=== PATIENT | female | born 1940 | race Caucasian/White ===

== ENCOUNTER 2017-01-14 14:46 | Inpatient (IN) | payer MEDICARE ==
[2017-01-14 15:58] LABS: Hematocrit 41 % (35-47); Hemoglobin 13.6 g/dl (12.0-16.0); Mean Corpuscular HGB Conc 33 g/dl (31-36); Mean Corpuscular Hemoglobin 34 pg (27-31); Mean Corpuscular Volume 102 fL (80-97); Mean Platelet Volume 9 um3 (7.4-10.4); Red Cell Distribution Width 14 % (10.5-15); White Blood Count 24.1 10^3/ul (3.5-10.8)
[2017-01-14 16:00] LABS: Add Diff/Slide Review? Manual Diff Added; Comments Flag Yes
--- NOTE | 2017-01-14 16:00 | RAD ---
INDICATION: Fever. COMPARISON: Comparison is made with a prior chest x-ray study from January 08, 2012. TECHNIQUE: Dual-energy PA and lateral views of the chest were obtained. FINDINGS: The heart is within normal limits in size. Mediastinal and hilar contours appear within normal limits. The lungs are hyperinflated. There are patchy bilateral upper lobe infiltrates which are new from the prior study. No pleural effusion is seen. IMPRESSION: 1. BILATERAL UPPER LOBE INFILTRATES RECOMMEND FOLLOW-UP CHEST X-RAYS TO RESOLUTION. 2. COPD.
[2017-01-14 16:12] LABS: Albumin 3.5 g/dL (3.2-5.2); BUN/Creatinine Ratio 21.5 (8-20); EGFR African American 113.7 (>60); EGFR Non-African American 88.4 (>60); Potassium 3.4 mmol/L (3.5-5.0); Total Protein 6.5 g/dL (6.4-8.9)
[2017-01-14 16:14] LABS: Troponin I 0.03 ng/mL (<0.04)
[2017-01-14 16:45] LABS: Immature Granulocytes 4 % (0-9); Neutrophil % 85 % (38-83)
[2017-01-14 16:46] LABS: Macrocytosis 2+
[2017-01-14 16:47] LABS: Add Path Review? YES
[2017-01-14] MEDS ORDERED: Cefepime(*) 2 GM in NS 0.9% 50 ML* 50 ML IVPB ONE (17:35)
[2017-01-14] MEDS ORDERED: NS 0.9% 1000 ML* 1,000 ML IV ONE (17:47)
--- NOTE | 2017-01-14 18:20 | ADMNOTE ---
Subjective Date of Service: 01/14/17 Interval History: ADMISSION HISTORY AND PHYSICAL EXAM: Allergies Allergy/AdvReac Type Severity Reaction Status Date / Time Azithromycin [From Zithromax] Allergy Unknown Verified 01/14/17 15:12 Reaction Details Ciprofloxacin [From Cipro] Allergy Difficulty Verified 01/14/17 15:12 Breathing Clindamycin Allergy Unknown Verified 01/14/17 15:12 Reaction Details Codeine Allergy Altered Verified 01/14/17 15:12 Mental Status Levofloxacin [From Levaquin] Allergy Swelling Verified 01/14/17 15:12 Of Face,Lips,& Throat Metoclopramide [From Reglan] Allergy THRASHING Verified 01/14/17 15:04 AROUND/BEATING ON LEGS Nitrofurantoin Allergy Hives Verified 01/14/17 15:04 [From Macrobid] Penicillins Allergy Hives Verified 01/14/17 15:04 Sulfamethoxazole Allergy DIZZINESS/UNSTEADY Verified 01/14/17 15:04 w/Trimethoprim & RASH [From Bactrim] Tetracycline Allergy YEAST Verified 01/14/17 15:04 INFECTION Home Medications Medication Instructions Recorded Confirmed Type Aspirin 81 mg PO DAILY 03/21/14 03/24/14 History Clopidogrel Bisulfate [Plavix] 75 mg PO DAILY 03/21/14 03/24/14 History Cyanocobalamin [Vitamin B12] 1,000 mcg PO DAILY 03/21/14 03/24/14 History Famotidine 20 mg PO BID 03/21/14 03/24/14 History Gabapentin 300 mg PO DAILY 03/21/14 03/24/14 History Ibandronate TAB(NF) [Boniva(NF)] 1 tab PO SEE INSTRUCTIONS 03/21/14 03/24/14 History Metoprolol Tartrate 12.5 mg PO BID 03/21/14 03/24/14 History Nitroglycerin [Nitrostat] 0.4 mg SL SEE INSTRUCTIONS 03/21/14 03/24/14 History Potassium Chloride 7.5 ml PO DAILY 03/21/14 03/24/14 History Simvastatin 20 mg PO DAILY 03/21/14 03/24/14 History HPI: The patient has been treated by her dentist for an abcessed tooth. She took Cipro, then Levaquin. Both caused sx's including face turning red, tongue feeling swollen. Yesterday the dentist pulled the tooth. After that she had a fever, both yesterday and this AM, up to 103. No pain. No cough, SOB. Family History: Findings - Mother of cancer ? type. Father of [place]. Social History: Findings - Lives alone. Current smoker. 2 glasses alcohol daily. Son Jefferson is her SDM. No other children. Past Medical History: Findings - Cholycystectomy many yrs ago. [place] with 2 cardiac stents 2011. R lumpectomy and RT for breast ca 2006. Review of Systems - Review of Systems Constitutional Symptoms: Negative: Weight Gain, Weight Loss, Weakness, Fatigue, Fever, Night Sweats, Unexplained Falls, Other Dermatology: Positive: Normal HEENT: Positive: Normal Eyes: Positive: Normal Thyroid: Positive: Normal Pulmonary: Positive: COPD Cardiology: Positive: Normal Gastroenterology: Positive: Anorexia Musculoskeletal: Negative: Joint Pain, Joint Stiffness, Arthritis, Osteoporosis, Low Back Pain , Sciatica, Joint Deformities, Kyphoscoliosis, Other Endocrinology: Positive: Normal Hematologic/Lymphatic: Negative: Anemia, Easy Brusing, Hx Leukemia, Hx Lymphoma, Use of Anticoagulant, Use of Antiplatelet Drugs, Other Neurology: Positive: Normal Allergic/Immunologic: Negative: Hx Anaphylaxis, Hx Angioedema, Hx Environmental, Hx Seasonal, Athsma, Hx HIV, Immunocompromise, Swollen Glands LymphNodes, Other Objective Active Medications: Aspirin (Aspirin Low Dose Tab*) 81 mg PO DAILY STEPHANIE Clopidogrel Bisulfate (Plavix Tab*) 75 mg PO DAILY [facility] Enoxaparin Sodium (Lovenox(*)) 40 mg SUBCUT Q24H STEPHANIE Famotidine (Pepcid Tab*) 20 mg PO BID STEPHANIE Gabapentin (Neurontin Cap(*)) 300 mg PO DAILY [facility] Cefuroxime Sodium 750 mg/ (Sodium Chloride) 50 mls @ 100 mls/hr IVPB Q8H STEPHANIE Potassium Chloride/Sodium Chloride (Ns 0.9% W/ 20 Meq Kcl 1000 Ml*) 1,000 mls @ 125 mls/hr IV PER RATE [facility] Metoprolol Tartrate (Lopressor Tab*) 12.5 mg PO BID STEPHANIE Nitroglycerin (Nitroglycerin Tab 0.4 Mg*) 0.4 mg SL SEE INSTRUCTIONS STEPHANIE Simvastatin (Zocor(Nf)) 20 mg PO DAILY [facility] Oxygen Devices in Use Now: None Appearance: Alert, partly up on ED stretcher. In good spirits. Looks comfortable. Eyes: No Scleral Icterus Ears/Nose/Mouth/Throat: Clear Oropharnyx, Mucous Membranes Moist, - - R lower tooth missing. No tenderness or swelling. Neck: NL Appearance and Movements; NL JVP, No Thyroid Enlargement, Masses Respiratory: Symmetrical Chest Expansion and Respiratory Effort, Clear to Auscultation, Clear to Percussion Cardiovascular: NL Sounds; No Murmurs; No JVD, RRR, No Edema, - Extremities: No Edema, No Clubbing, Cyanosis, - Skin: No Rash or Ulcers, No Nodules or Sclerosis Neurological: Alert and Oriented x 3, NL Sensation Result Diagrams: 01/14/17 15:49 01/14/17 15:49 Assess/Plan/Problems-Billing Assessment: - Patient Problems (1) Sepsis Current Visit: Yes Status: Acute Comment: Source could be dental or pulmonary. Blood C&S sent. Start IV cefuroxime, IV fluids. Repeat CBC 01/15. (2) Tobacco abuse Current Visit: Yes Status: Acute Code(s): Z72.0 - TOBACCO USE SNOMED Code( s): 158413948 Comment: Pt advised to quit smoking and avoid second hand smoke.
[2017-01-14 18:35] LABS: Urine Bacteria Absent (Absent); Urine Bilirubin Negative (Negative); Urine Glucose Negative (Negative); Urine Nitrite Negative (Negative)
[2017-01-14] MEDS ORDERED: Nitroglycerin TAB 0.4 MG* 0.4 MG TAB SL SCH (19:00)
[2017-01-14] MEDS ORDERED: Nitroglycerin TAB 0.4 MG* 0.4 MG TAB SL PRN (19:14)
[2017-01-14] MEDS: ceFUROXime IV(*) 750 MG in NS 0.9% 50 ML* 50 ML IVPB SCH (20:30)
[2017-01-14] MEDS: NS 0.9% w/ 20 Meq KCL 1000 ML* 1,000 ML IV SCH (20:30)
[2017-01-14] MEDS: Metoprolol Tartrate TAB* 25 MG PO SCH (20:58)
[2017-01-14] MEDS: Famotidine TAB* 20 MG PO SCH (20:58)
[2017-01-14] MEDS: Enoxaparin(*) 40 MG/0.4 ML SYR SUBCUT SCH (20:58)
[2017-01-14] MEDS ORDERED: Docusate CAP* 100 MG PO PRN (23:02)
[2017-01-14] MEDS ORDERED: Nicotine Inhaler* 10 MG AMP INH PRN (23:02)
[2017-01-15] MEDS: ceFUROXime IV(*) 750 MG in NS 0.9% 50 ML* 50 ML IVPB SCH (03:16)
[2017-01-15 04:52] LABS: Hematocrit 37 % (35-47); Hemoglobin 12.4 g/dl (12.0-16.0); Mean Corpuscular HGB Conc 33 g/dl (31-36); Mean Corpuscular Hemoglobin 34 pg (27-31); Mean Corpuscular Volume 103 fL (80-97); Mean Platelet Volume 9 um3 (7.4-10.4); Red Blood Count 3.63 10^6/ul (4.0-5.4); Red Cell Distribution Width 14 % (10.5-15); White Blood Count 20.5 10^3/ul (3.5-10.8)
[2017-01-15 05:00] LABS: Add Diff/Slide Review? Slide Review Added; Comments Flag Yes
[2017-01-15 05:04] LABS: BUN/Creatinine Ratio 24.1 (8-20); Calcium 7.9 mg/dL (8.6-10.3); EGFR African American 140.8 (>60); EGFR Non-African American 109.5 (>60); Potassium 3.6 mmol/L (3.5-5.0)
[2017-01-15] MEDS: NS 0.9% w/ 20 Meq KCL 1000 ML* 1,000 ML IV SCH ×3 (05:13→23:05)
[2017-01-15] MEDS: Aspirin Low Dose CHEW TAB* 81 MG PO SCH (08:58)
[2017-01-15] MEDS: Famotidine TAB* 20 MG PO SCH ×2 (08:58→20:18)
[2017-01-15] MEDS: Metoprolol Tartrate TAB* 25 MG PO SCH ×2 (08:58→20:18)
[2017-01-15] MEDS: Atorvastatin* 10 MG TAB PO SCH (08:58)
[2017-01-15] MEDS: Gabapentin CAP(*) 300 MG PO SCH (08:59)
[2017-01-15] MEDS: Clopidogrel TAB* 75 MG PO SCH (08:59)
[2017-01-15] MEDS ORDERED: Albuterol/Ipratropium NEB.SOL* Albuterol 2.5 MG/Ipratropium 0.5 MG 3 ML INH PRN (09:13)
[2017-01-15] MEDS ORDERED: Nicotine Inhaler* 10 MG AMP INH PRN (09:50)
--- NOTE | 2017-01-15 10:00 | PN ---
Subjective Date of Service: 01/15/17 Interval History: C/O fatigue. She had her usual AM wheezing today and it has resolved. Her face became very red and burning toward the end of the cefuroxime infusion. Family History: Findings - Mother of cancer ? type. Father of [place]. Social History: Findings - Lives alone. Current smoker. 2 glasses alcohol daily. Son Jefferson is her SDM. No other children. Past Medical History: Findings - Cholycystectomy many yrs ago. [place] with 2 cardiac stents 2011. R lumpectomy and RT for breast ca 2006. Objective Active Medications: Albuterol/Ipratropium (Duoneb (Albuterol 2.5 Mg/Ipratropium 0.5 Mg)) 1 neb INH Q2H PRN PRN Reason: SOB/WHEEZING Aspirin (Aspirin Low Dose Tab*) 81 mg PO DAILY [facility] Last Admin: 01/15/17 08:58 Dose: 81 mg Atorvastatin Calcium (Lipitor*) 10 mg PO DAILY [facility] Last Admin: 01/15/17 08:58 Dose: 10 mg Clopidogrel Bisulfate (Plavix Tab*) 75 mg PO DAILY [facility] Last Admin: 01/15/17 08:59 Dose: 75 mg Docusate Sodium (Colace Cap*) 100 mg PO BID PRN PRN Reason: CONSTIPATION Last Admin: 01/15/17 00:04 Dose: 100 mg Enoxaparin Sodium (Lovenox(*)) 40 mg SUBCUT Q24H [facility] Last Admin: 01/14/17 20:58 Dose: 40 mg Famotidine (Pepcid Tab*) 20 mg PO BID [facility] Last Admin: 01/15/17 08:58 Dose: 20 mg Gabapentin (Neurontin Cap(*)) 300 mg PO DAILY [facility] Last Admin: 01/15/17 08:59 Dose: 300 mg Potassium Chloride/Sodium Chloride (Ns 0.9% W/ 20 Meq Kcl 1000 Ml*) 1,000 mls @ 125 mls/hr IV PER RATE [facility] Last Admin: 01/15/17 05:13 Dose: 125 mls/hr Metoprolol Tartrate (Lopressor Tab*) 12.5 mg PO BID [facility] Last Admin: 01/15/17 08:58 Dose: 12.5 mg Nicotine (Nicotine Inhaler*) 10 mg INH Q2H PRN PRN Reason: CRAVING Nicotine (Nicotine Inhaler*) 10 mg INH Q2H PRN PRN Reason: CRAVING Nitroglycerin (Nitroglycerin Tab 0.4 Mg*) 0.4 mg SL Q5M PRN PRN Reason: ANGINA Vital Signs 01/14/17 01/14/17 01/14/17 18:02 18:26 20:00 Temperature 100.2 F 98.6 F Pulse Rate 110 104 Respiratory 16 20 16 Rate Blood Pressure 129/73 129/75 (mmHg) O2 Sat by Pulse 92 91 91 Oximetry 01/14/17 01/15/17 01/15/17 23:51 01:36 04:11 Temperature 100.0 F 100.6 F 98.8 F Pulse Rate 87 92 Respiratory 16 16 Rate Blood Pressure 104/65 120/64 (mmHg) O2 Sat by Pulse 91 90 Oximetry 01/15/17 01/15/17 01/15/17 07:59 08:00 08:59 Temperature 99.7 F Pulse Rate 89 Respiratory 16 18 18 Rate Blood Pressure 128/68 (mmHg) O2 Sat by Pulse 91 91 Oximetry Oxygen Devices in Use Now: None Appearance: Alert, partly up in bed. In good spirits. Looks comfortable. Eyes: No Scleral Icterus Neck: NL Appearance and Movements; NL JVP, No Thyroid Enlargement, Masses Respiratory: Symmetrical Chest Expansion and Respiratory Effort, Clear to Percussion, - - Delayed expiratory phase Cardiovascular: NL Sounds; No Murmurs; No JVD, RRR, No Edema, - Extremities: No Edema, No Clubbing, Cyanosis, - Skin: No Nodules or Sclerosis, - - marked facial flushing, mainly butterfly distribution, warm. Neurological: Alert and Oriented x 3, NL Sensation Result Diagrams: 01/15/17 04:34 01/15/17 04:34 Assess/Plan/Problems-Billing Assessment: - Patient Problems (1) Sepsis Current Visit: Yes Status: Acute Comment: Source could be dental or pulmonary. Blood C&S sent. Clinically doing well. I gave patient the choice of using a cephalosporin or no antibiotic and she chose no antibiotic. (2) Tobacco abuse Current Visit: Yes Status: Acute Code(s): Z72.0 - TOBACCO USE SNOMED Code( s): 992400384 Comment: Pt advised to quit smoking and avoid second hand smoke. Patient requested nicotine inhaler and I ordered it. (3) COPD (chronic obstructive pulmonary disease) Current Visit: Yes Status: Acute Code(s): J44.9 - CHRONIC OBSTRUCTIVE PULMONARY DISEASE, UNSPECIFIED SNOMED Code(s): 41011887 Comment: Pt has never used a bronchodilator at home although she recently filled an rx for one. Giancarlo ordered PRN.
--- NOTE | 2017-01-15 14:32 | ED ---
Breanna Rasmussen SooYoung, scribed for Perry rCuz MD on 01/14/17 at 1534 . HPI Febrile Illness - HPI Summary HPI Summary: A 76 y/o F presents to ED with c/o fever, maxT of 103 F, onset yesterday evening , since resolved. Denies cough, dysuria, hematuria, frequency, CP, v/d. She says she has SOB as baseline. She received a PNA shot four days ago. Pt notes that she had an abscessed tooth that was removed, she was placed on ABX and had some allergic reactions (dyspnea, erythema to the face, swollen tongue, leg pain ). - History of Current Complaint Chief Complaint: EDFever Time Seen by Provider: 01/14/17 15:14 Hx Obtained From: Patient Onset/Duration: Started Days Ago - yesterday night, Resolved Timing: Constant Initial Severity: Moderate Current Severity: None Pain Intensity: 0 Pain Scale Used: 0-10 Numeric - Allergy/Home Medications Allergies/Adverse Reactions: Allergies Allergy/AdvReac Type Severity Reaction Status Date / Time Azithromycin [From Zithromax] Allergy Unknown Verified 01/14/17 15:12 Reaction Details Ciprofloxacin [From Cipro] Allergy Difficulty Verified 01/14/17 15:12 Breathing Clindamycin Allergy Unknown Verified 01/14/17 15:12 Reaction Details Codeine Allergy Altered Verified 01/14/17 15:12 Mental Status Levofloxacin [From Levaquin] Allergy Swelling Verified 01/14/17 15:12 Of Face,Lips,& Throat Metoclopramide [From Reglan] Allergy THRASHING Verified 01/14/17 15:04 AROUND/BEATING ON LEGS Nitrofurantoin Allergy Hives Verified 01/14/17 15:04 [From Macrobid] Penicillins Allergy Hives Verified 01/14/17 15:04 Sulfamethoxazole Allergy DIZZINESS/UNSTEADY Verified 01/14/17 15:04 w/Trimethoprim & RASH [From Bactrim] Tetracycline Allergy YEAST Verified 01/14/17 15:04 INFECTION PMH/Surg Hx/FS Hx/Imm Hx Previously Healthy: No Endocrine/Hematology History: Denies: Hx Diabetes Cardiovascular History: Reports: Hx Angina - PAST, Hx Coronary Artery Disease - 2 STENT, Hx Hypercholesterolemia, Hx Hypertension Denies: Hx Myocardial Infarction - "WAS TOLD SHE HAD AN EVENT, Hx Pacemaker/ ICD Respiratory History: Reports: Hx Chronic Obstructive Pulmonary Disease (COPD) - MILD History: Denies: Hx Renal Disease Musculoskeletal History: Reports: Hx Osteoporosis Denies: Hx Rheumatoid Arthritis Sensory History: Denies: Hx Hearing Aid Psychiatric History: Denies: Hx Panic Disorder - Cancer History Cancer Type, Location and Year: BREAST Hx Chemotherapy: No Hx Radiation Therapy: Yes - BREAST - Surgical History Surgery Procedure, Year, and Place: GALLBLADDER. Rt LUMPECTOMY - BREAST CANCER - 2006. CARDAIC STENTING - 2011- PROMUS ELEMENT Xs 2 - CONDITIONAL 5 UP TO 3T- ( PROCEDURE DONE [place] [facility] [place] Infectious Disease History: No Infectious Disease History: Denies: Traveled Outside the [place] in Last 30 Days - Family History Known Family History: Positive: Cardiac Disease - CAD, Other - breast CA - Social History Occupation: Employed Full-time Lives: Alone Alcohol Use: Daily Alcohol Amount: 1-2 DAILY Hx Substance Use: No Substance Use Type: Reports: None Hx Tobacco Use: Yes Smoking Status (MU): Light Every Day Tobacco Smoker Type: Cigarettes Amount Used/How Often: 7-10 DAILY Length of Time of Smoking/Using Tobacco: SINCE 1954 Have You Smoked in the Last Year: Yes Review of Systems Positive: Fever. Negative: Chills Negative: Erythema Negative: Sore Throat Negative: Chest Pain Negative: Shortness Of Breath, Cough Negative: Abdominal Pain, Vomiting, Nausea Negative: dysuria, hematuria Negative: Myalgia, Edema Negative: Rash Neurological: Other - neg: dizziness All Other Systems Reviewed And Are Negative: Yes Physical Exam - Summary Physical Exam Summary: Constitutional: Well-developed, Well-nourished, Alert. (-) Distressed Skin: Warm, Dry HENT: Normocephalic; Atraumatic Eyes: Conjunctiva normal Neck: Musculoskeletal ROM normal neck. (-) JVD, (-) Stridor, (-) Tracheal deviation Cardio: Rhythm regular, rate normal, Heart sounds normal; Intact distal pulses; The pedal pulses are 2+ and symmetric. Radial pulses are 2+ and symmetric. (-) Murmur Pulmonary/Chest wall: Effort normal. POS BIBASILAR RHONCHI Abd: Soft, (-) Tenderness, (-) Distension, (-) Guarding, (-) Rebound Musculoskeletal: (-) Edema Lymph: (-) Cervical adenopathy Neuro: Alert, Oriented x3 Psych: Mood and affect Normal Triage Information Reviewed: Yes Vital Signs On Initial Exam: Initial Vitals Temp Pulse Resp BP Pulse Ox 98.8 F 121 18 129/76 93 01/14/17 14:49 01/14/17 14:49 01/14/17 14:49 01/14/17 14:49 01/14/17 14:49 Vital Signs Reviewed: Yes Diagnostics - Vital Signs Vital Signs Temp Pulse Resp BP Pulse Ox 01/14/17 15:03 98.8 F 121 18 129/76 93 01/14/17 14:49 98.8 F 121 18 129/76 93 - Laboratory Lab Results: Lab Results 01/14/17 01/14/17 01/14/17 Range/Units 15:49 15:49 15:49 WBC 24.1 H (3.5-10.8) 10^3/ul RBC 4.00 (4.0-5.4) 10^6/ul Hgb 13.6 (12.0-16.0) g/dl Hct 41 (35-47) % MCV 102 H (80-97) fL MCH 34 H (27-31) pg MCHC 33 (31-36) g/dl RDW 14 (10.5-15) % Plt Count 143 L (150-450) 10^3/ul MPV 9 (7.4-10.4) um3 Immature Gran % (Auto) 4 (0-9) % Neut % (Auto) (38-83) % Lymph % (Auto) (25-47) % [place] % (Auto) (1-9) % Eos % (Auto) (0-6) % Baso % (Auto) (0-2) % Absolute Neuts (auto) 21.4 H (1.5-7.7) 10^3/ul Absolute Lymphs (auto) 1.0 (1.0-4.8) 10^3/ul Absolute Monos (auto) 1.7 H (0-0.8) 10^3/ul Absolute Eos (auto) Not Reportable Absolute Basos (auto) Not Reportable Absolute Nucleated RBC Not Reportable Neutrophils % 85 H (38-83) % Band Neutrophils % 4 (0-8) % Lymphocytes % 4 L (25-47) % Monocytes % 7 (0-13) % Nucleated RBC % Normal RBC Morphology Not Reportable Macrocytosis 2+ Hem Pathologist Commnt Pending INR (Anticoag Therapy) 1.04 (0.89-1.11) APTT 31.3 (26.0-36.3) seconds Sodium 132 L (133-145) mmol/L Potassium 3.4 L (3.5-5.0) mmol/L Chloride 96 L (101-111) mmol/L Carbon Dioxide 29 (22-32) mmol/L Anion Gap 7 (2-11) mmol/L BUN 14 (6-24) mg/dL Creatinine 0.65 (0.51-0.95) mg/dL Est GFR ( Amer) 113.7 (>60) Est GFR (Non-Af Amer) 88.4 (>60) BUN/Creatinine Ratio 21.5 H (8-20) Glucose 118 H (70-100) mg/dL Lactic Acid (0.5-2.0) mmol/L Calcium 9.0 (8.6-10.3) mg/dL Total Bilirubin 1.00 (0.2-1.0) mg/dL AST 16 (13-39) U/L ALT 8 (7-52) U/L Alkaline Phosphatase 73 (34-104) U/L Troponin I 0.03 (<0.04) ng/mL Total Protein 6.5 (6.4-8.9) g/dL Albumin 3.5 (3.2-5.2) g/dL Globulin 3.0 (2-4) g/dL Albumin/Globulin Ratio 1.2 (1-3) Urine Color Urine Appearance Urine pH (5-9) Ur Specific [place] (1.010-1.030) Urine Protein (Negative) Urine Ketones (Negative) Urine Blood (Negative) Urine Nitrate (Negative) Urine Bilirubin (Negative) Urine Urobilinogen (Negative) Ur Leukocyte Esterase (Negative) Urine WBC (Auto) (Absent) Urine RBC (Auto) (Absent) Ur Squamous Epith Cells (Absent) Calcium Oxalate Crystal (Absent) Urine Bacteria (Absent) Urine Glucose (Negative) 01/14/17 01/14/17 01/14/17 Range/Units 15:49 16:40 23:07 WBC (3.5-10.8) 10^3/ul RBC (4.0-5.4) 10^6/ul Hgb (12.0-16.0) g/dl Hct (35-47) % MCV (80-97) fL MCH (27-31) pg MCHC (31-36) g/dl RDW (10.5-15) % Plt Count (150-450) 10^3/ul MPV (7.4-10.4) um3 Immature Gran % (Auto) (0-9) % Neut % (Auto) (38-83) % Lymph % (Auto) (25-47) % [place] % (Auto) (1-9) % Eos % (Auto) (0-6) % Baso % (Auto) (0-2) % Absolute Neuts (auto) (1.5-7.7) 10^3/ul Absolute Lymphs (auto) (1.0-4.8) 10^3/ul Absolute Monos (auto) (0-0.8) 10^3/ul Absolute Eos (auto) Absolute Basos (auto) Absolute Nucleated RBC Neutrophils % (38-83) % Band Neutrophils % (0-8) % Lymphocytes % (25-47) % Monocytes % (0-13) % Nucleated RBC % Normal RBC Morphology Macrocytosis Hem Pathologist Commnt INR (Anticoag Therapy) (0.89-1.11) APTT (26.0-36.3) seconds Sodium (133-145) mmol/L Potassium (3.5-5.0) mmol/L Chloride (101-111) mmol/L Carbon Dioxide (22-32) mmol/L Anion Gap (2-11) mmol/L BUN (6-24) mg/dL Creatinine (0.51-0.95) mg/dL Est GFR ( Amer) (>60) Est GFR (Non-Af Amer) (>60) BUN/Creatinine Ratio (8-20) Glucose (70-100) mg/dL Lactic Acid 1.2 0.8 (0.5-2.0) mmol/L Calcium (8.6-10.3) mg/dL Total Bilirubin (0.2-1.0) mg/dL AST (13-39) U/L ALT (7-52) U/L Alkaline Phosphatase (34-104) U/L Troponin I (<0.04) ng/mL Total Protein (6.4-8.9) g/dL Albumin (3.2-5.2) g/dL Globulin (2-4) g/dL Albumin/Globulin Ratio (1-3) Urine Color Ana Cristina Urine Appearance Cloudy Urine pH 6.0 (5-9) Ur Specific [place] 1.023 (1.010-1.030) Urine Protein 1+(30 mg/dl) H (Negative) Urine Ketones 2+ H (Negative) Urine Blood 1+ H (Negative) Urine Nitrate Negative (Negative) Urine Bilirubin Negative (Negative) Urine Urobilinogen Negative (Negative) Ur Leukocyte Esterase Trace H (Negative) Urine WBC (Auto) 2+(11-20/hpf) H (Absent) Urine RBC (Auto) 2+(6-10/hpf) H (Absent) Ur Squamous Epith Cells Present H (Absent) Calcium Oxalate Crystal Present H (Absent) Urine Bacteria Absent (Absent) Urine Glucose Negative (Negative) 01/15/17 01/15/17 Range/Units 04:34 04:34 WBC 20.5 H (3.5-10.8) 10^3/ul RBC 3.63 L (4.0-5.4) 10^6/ul Hgb 12.4 (12.0-16.0) g/dl Hct 37 (35-47) % MCV 103 H (80-97) fL MCH 34 H (27-31) pg MCHC 33 (31-36) g/dl RDW 14 (10.5-15) % Plt Count 124 L (150-450) 10^3/ul MPV 9 (7.4-10.4) um3 Immature Gran % (Auto) (0-9) % Neut % (Auto) 85.0 H (38-83) % Lymph % (Auto) 5.9 L (25-47) % [place] % (Auto) 8.5 (1-9) % Eos % (Auto) 0.1 (0-6) % Baso % (Auto) 0.5 (0-2) % Absolute Neuts (auto) 17.4 H (1.5-7.7) 10^3/ul Absolute Lymphs (auto) 1.2 (1.0-4.8) 10^3/ul Absolute Monos (auto) 1.7 H (0-0.8) 10^3/ul Absolute Eos (auto) 0 Absolute Basos (auto) 0.1 Absolute Nucleated RBC 0.01 Neutrophils % (38-83) % Band Neutrophils % (0-8) % Lymphocytes % (25-47) % Monocytes % (0-13) % Nucleated RBC % 0 Normal RBC Morphology Macrocytosis Hem Pathologist Commnt INR (Anticoag Therapy) (0.89-1.11) APTT (26.0-36.3) seconds Sodium 133 (133-145) mmol/L Potassium 3.6 (3.5-5.0) mmol/L Chloride 100 L (101-111) mmol/L Carbon Dioxide 25 (22-32) mmol/L Anion Gap 8 (2-11) mmol/L BUN 13 (6-24) mg/dL Creatinine 0.54 (0.51-0.95) mg/dL Est GFR ( Amer) 140.8 (>60) Est GFR (Non-Af Amer) 109.5 (>60) BUN/Creatinine Ratio 24.1 H (8-20) Glucose 107 H (70-100) mg/dL Lactic Acid (0.5-2.0) mmol/L Calcium 7.9 L (8.6-10.3) mg/dL Total Bilirubin (0.2-1.0) mg/dL AST (13-39) U/L ALT (7-52) U/L Alkaline Phosphatase (34-104) U/L Troponin I (<0.04) ng/mL Total Protein (6.4-8.9) g/dL Albumin (3.2-5.2) g/dL Globulin (2-4) g/dL Albumin/Globulin Ratio (1-3) Urine Color Urine Appearance Urine pH (5-9) Ur Specific [place] (1.010-1.030) Urine Protein (Negative) Urine Ketones (Negative) Urine Blood (Negative) Urine Nitrate (Negative) Urine Bilirubin (Negative) Urine Urobilinogen (Negative) Ur Leukocyte Esterase (Negative) Urine WBC (Auto) (Absent) Urine RBC (Auto) (Absent) Ur Squamous Epith Cells (Absent) Calcium Oxalate Crystal (Absent) Urine Bacteria (Absent) Urine Glucose (Negative) Result Diagrams: 01/15/17 04:34 01/15/17 04:34 Lab Statement: Any lab studies that have been ordered have been reviewed, and results considered in the medical decision making process. - Radiology CXR Xray Interpretation: Positive (See Comments) - IMPRESSION: 1. BILATERAL UPPER LOBE INFILTRATES RECOMMEND FOLLOW-UP CHEST X-RAYS TO RESOLUTION. 2. COPD. Radiology Interpretation Completed By: Radiologist Course/Dx - Course Course Of Treatment: Pt is a 76 y/o F presenting with c/o fever, maxT of 103, onset yesterday evening, since resolved. Denies cough, dysuria, hematuria, frequency, CP, v/d. She says she has SOB as baseline. She received a PNA shot four days ago. Pt given fluids, Cefepime in ED. Trop is 0.03. CXR shows "1. BILATERAL UPPER LOBE INFILTRATES RECOMMEND FOLLOW-UP CHEST X-RAYS TO RESOLUTION. 2. COPD." - Diagnoses Provider Diagnoses: Sepsis, Community acquired pneumonia - Provider Notifications Discussed Care Of Patient With: 1738: Dr. Love, oncology: Pt has not received any oncology treatment for a significant time. Recommends admission. 1750: Dr. Vo, hospitalist, will admit. Instructed by Provider To: Admit As Inpatient Discharge - Discharge Plan Condition: Stable Disposition: [facility]MITTED TO [facility] The documentation as recorded by the Breanna hester SooYoung accurately reflects the service I personally performed and the decisions made by me, Perry Cruz MD.
[2017-01-15] MEDS ORDERED: Acetaminophen TAB* 325 MG PO PRN (18:20)
[2017-01-15] MEDS ORDERED: Mouth Piece, Nicotine* 1 EACH CARTRIDGE ONE (20:13)
[2017-01-15] MEDS: Enoxaparin(*) 40 MG/0.4 ML SYR SUBCUT SCH (20:21)
[2017-01-16 07:45] VITALS: BP 150/77
[2017-01-16] MEDS: NS 0.9% w/ 20 Meq KCL 1000 ML* 1,000 ML IV SCH (07:47)
[2017-01-16] MEDS: Aspirin Low Dose CHEW TAB* 81 MG PO SCH (07:48)
[2017-01-16] MEDS: Atorvastatin* 10 MG TAB PO SCH (07:48)
[2017-01-16] MEDS: Gabapentin CAP(*) 300 MG PO SCH (07:48)
[2017-01-16] MEDS: Clopidogrel TAB* 75 MG PO SCH (07:48)
[2017-01-16] MEDS: Famotidine TAB* 20 MG PO SCH (07:48)
[2017-01-16] MEDS: Metoprolol Tartrate TAB* 25 MG PO SCH (07:49)
--- NOTE | 2017-01-16 09:00 | DCNOTE ---
Subjective Date of Service: 01/16/17 Interval History: Feels tired/weak this AM, but states she felt much better yesterday. She states she did not sleep well last night. Family History: Findings - Mother of cancer ? type. Father of NE. Social History: Findings - Lives alone. Current smoker. 2 glasses alcohol daily. Son Jefferson is her SDM. No other children. Past Medical History: Findings - Cholycystectomy many yrs ago. NE with 2 cardiac stents 2011. R lumpectomy and RT for breast ca 2006. Objective Active Medications: Acetaminophen (Tylenol Tab*) 650 mg PO Q6H PRN PRN Reason: PAIN Last Admin: 01/15/17 18:28 Dose: 650 mg Albuterol/Ipratropium (Duoneb (Albuterol 2.5 Mg/Ipratropium 0.5 Mg)) 1 neb INH Q2H PRN PRN Reason: SOB/WHEEZING Last Admin: 01/15/17 11:42 Dose: 1 neb Aspirin (Aspirin Low Dose Tab*) 81 mg PO DAILY [facility] Last Admin: 01/16/17 07:48 Dose: 81 mg Atorvastatin Calcium (Lipitor*) 10 mg PO DAILY [facility] Last Admin: 01/16/17 07:48 Dose: 10 mg Clopidogrel Bisulfate (Plavix Tab*) 75 mg PO DAILY [facility] Last Admin: 01/16/17 07:48 Dose: 75 mg Docusate Sodium (Colace Cap*) 100 mg PO BID PRN PRN Reason: CONSTIPATION Last Admin: 01/15/17 00:04 Dose: 100 mg Enoxaparin Sodium (Lovenox(*)) 40 mg SUBCUT Q24H [facility] Last Admin: 01/15/17 20:21 Dose: 40 mg Famotidine (Pepcid Tab*) 20 mg PO BID [facility] Last Admin: 01/16/17 07:48 Dose: 20 mg Gabapentin (Neurontin Cap(*)) 300 mg PO DAILY [facility] Last Admin: 01/16/17 07:48 Dose: 300 mg Potassium Chloride/Sodium Chloride (Ns 0.9% W/ 20 Meq Kcl 1000 Ml*) 1,000 mls @ 125 mls/hr IV PER RATE [facility] Last Admin: 01/16/17 07:47 Dose: 125 mls/hr Metoprolol Tartrate (Lopressor Tab*) 12.5 mg PO BID [facility]PH[facility] Last Admin: 01/16/17 07:49 Dose: 12.5 mg Nicotine (Nicotine Inhaler*) 10 mg INH Q2H PRN PRN Reason: CRAVING Last Admin: 01/15/17 20:19 Dose: 10 mg Nitroglycerin (Nitroglycerin Tab 0.4 Mg*) 0.4 mg SL Q5M PRN PRN Reason: ANGINA Omeprazole (Prilosec Cap*) 20 mg PO DAILY@0600 [facility] Vital Signs 01/15/17 01/15/17 01/15/17 10:59 12:18 13:30 Temperature 99.0 F 99.0 F Pulse Rate 89 89 Respiratory 18 18 18 Rate Blood Pressure 106/65 106/65 (mmHg) O2 Sat by Pulse 90 90 Oximetry 01/15/17 01/15/17 01/15/17 14:36 19:30 20:00 Temperature 99.6 F Pulse Rate 89 95 89 Respiratory 16 20 Rate Blood Pressure 123/64 (mmHg) O2 Sat by Pulse 92 89 90 Oximetry 01/15/17 01/15/17 01/16/17 20:03 20:24 04:46 Temperature 98.7 F 98.4 F Pulse Rate 89 86 Respiratory 20 20 16 Rate Blood Pressure 129/80 154/87 (mmHg) O2 Sat by Pulse 91 90 91 Oximetry 01/16/17 01/16/17 07:43 07:48 Temperature 99.0 F Pulse Rate 82 Respiratory 16 18 Rate Blood Pressure 150/77 (mmHg) O2 Sat by Pulse 93 Oximetry Oxygen Devices in Use Now: None Appearance: Alert, partly up in bed. In good spirits. Looks comfortable. Eyes: No Scleral Icterus Neck: NL Appearance and Movements; NL JVP, No Thyroid Enlargement, Masses Respiratory: Symmetrical Chest Expansion and Respiratory Effort, Clear to Percussion - mild rhonchi BL Cardiovascular: NL Sounds; No Murmurs; No JVD, RRR, No Edema, - Extremities: No Edema, No Clubbing, Cyanosis, - Skin: No Rash or Ulcers, No Nodules or Sclerosis, - Neurological: Alert and Oriented x 3, NL Sensation Result Diagrams: 01/15/17 04:34 01/15/17 04:34 Additional Lab and Data: Lab Results 01/14/17 01/14/17 01/14/17 Range/Units 15:49 15:49 15:49 WBC 24.1 H (3.5-10.8) 10^3/ul RBC 4.00 (4.0-5.4) 10^6/ul Hgb 13.6 (12.0-16.0) g/dl Hct 41 (35-47) % MCV 102 H (80-97) fL MCH 34 H (27-31) pg MCHC 33 (31-36) g/dl RDW 14 (10.5-15) % Plt Count 143 L (150-450) 10^3/ul MPV 9 (7.4-10.4) um3 Immature Gran % (Auto) 4 (0-9) % Neut % (Auto) (38-83) % Lymph % (Auto) (25-47) % Will % (Auto) (1-9) % Eos % (Auto) (0-6) % Baso % (Auto) (0-2) % Absolute Neuts (auto) 21.4 H (1.5-7.7) 10^3/ul Absolute Lymphs (auto) 1.0 (1.0-4.8) 10^3/ul Absolute Monos (auto) 1.7 H (0-0.8) 10^3/ul Absolute Eos (auto) Not Reportable Absolute Basos (auto) Not Reportable Absolute Nucleated RBC Not Reportable Neutrophils % 85 H (38-83) % Band Neutrophils % 4 (0-8) % Lymphocytes % 4 L (25-47) % Monocytes % 7 (0-13) % Nucleated RBC % Normal RBC Morphology Not Reportable Macrocytosis 2+ Hem Pathologist Commnt Pending INR (Anticoag Therapy) 1.04 (0.89-1.11) APTT 31.3 (26.0-36.3) seconds Sodium 132 L (133-145) mmol/L Potassium 3.4 L (3.5-5.0) mmol/L Chloride 96 L (101-111) mmol/L Carbon Dioxide 29 (22-32) mmol/L Anion Gap 7 (2-11) mmol/L BUN 14 (6-24) mg/dL Creatinine 0.65 (0.51-0.95) mg/dL Est GFR ( Amer) 113.7 (>60) Est GFR (Non-Af Amer) 88.4 (>60) BUN/Creatinine Ratio 21.5 H (8-20) Glucose 118 H (70-100) mg/dL Lactic Acid (0.5-2.0) mmol/L Calcium 9.0 (8.6-10.3) mg/dL Total Bilirubin 1.00 (0.2-1.0) mg/dL AST 16 (13-39) U/L ALT 8 (7-52) U/L Alkaline Phosphatase 73 (34-104) U/L Troponin I 0.03 (<0.04) ng/mL Total Protein 6.5 (6.4-8.9) g/dL Albumin 3.5 (3.2-5.2) g/dL Globulin 3.0 (2-4) g/dL Albumin/Globulin Ratio 1.2 (1-3) Urine Color Urine Appearance Urine pH (5-9) Ur Specific [place] (1.010-1.030) Urine Protein (Negative) Urine Ketones (Negative) Urine Blood (Negative) Urine Nitrate (Negative) Urine Bilirubin (Negative) Urine Urobilinogen (Negative) Ur Leukocyte Esterase (Negative) Urine WBC (Auto) (Absent) Urine RBC (Auto) (Absent) Ur Squamous Epith Cells (Absent) Calcium Oxalate Crystal (Absent) Urine Bacteria (Absent) Urine Glucose (Negative) 01/14/17 01/14/17 01/14/17 Range/Units 15:49 16:40 23:07 WBC (3.5-10.8) 10^3/ul RBC (4.0-5.4) 10^6/ul Hgb (12.0-16.0) g/dl Hct (35-47) % MCV (80-97) fL MCH (27-31) pg MCHC (31-36) g/dl RDW (10.5-15) % Plt Count (150-450) 10^3/ul MPV (7.4-10.4) um3 Immature Gran % (Auto) (0-9) % Neut % (Auto) (38-83) % Lymph % (Auto) (25-47) % Will % (Auto) (1-9) % Eos % (Auto) (0-6) % Baso % (Auto) (0-2) % Absolute Neuts (auto) (1.5-7.7) 10^3/ul Absolute Lymphs (auto) (1.0-4.8) 10^3/ul Absolute Monos (auto) (0-0.8) 10^3/ul Absolute Eos (auto) Absolute Basos (auto) Absolute Nucleated RBC Neutrophils % (38-83) % Band Neutrophils % (0-8) % Lymphocytes % (25-47) % Monocytes % (0-13) % Nucleated RBC % Normal RBC Morphology Macrocytosis Hem Pathologist Commnt INR (Anticoag Therapy) (0.89-1.11) APTT (26.0-36.3) seconds Sodium (133-145) mmol/L Potassium (3.5-5.0) mmol/L Chloride (101-111) mmol/L Carbon Dioxide (22-32) mmol/L Anion Gap (2-11) mmol/L BUN (6-24) mg/dL Creatinine (0.51-0.95) mg/dL Est GFR ( Amer) (>60) Est GFR (Non-Af Amer) (>60) BUN/Creatinine Ratio (8-20) Glucose (70-100) mg/dL Lactic Acid 1.2 0.8 (0.5-2.0) mmol/L Calcium (8.6-10.3) mg/dL Total Bilirubin (0.2-1.0) mg/dL AST (13-39) U/L ALT (7-52) U/L Alkaline Phosphatase (34-104) U/L Troponin I (<0.04) ng/mL Total Protein (6.4-8.9) g/dL Albumin (3.2-5.2) g/dL Globulin (2-4) g/dL Albumin/Globulin Ratio (1-3) Urine Color Ana Cristina Urine Appearance Cloudy Urine pH 6.0 (5-9) Ur Specific [place] 1.023 (1.010-1.030) Urine Protein 1+(30 mg/dl) H (Negative) Urine Ketones 2+ H (Negative) Urine Blood 1+ H (Negative) Urine Nitrate Negative (Negative) Urine Bilirubin Negative (Negative) Urine Urobilinogen Negative (Negative) Ur Leukocyte Esterase Trace H (Negative) Urine WBC (Auto) 2+(11-20/hpf) H (Absent) Urine RBC (Auto) 2+(6-10/hpf) H (Absent) Ur Squamous Epith Cells Present H (Absent) Calcium Oxalate Crystal Present H (Absent) Urine Bacteria Absent (Absent) Urine Glucose Negative (Negative) 01/15/17 01/15/17 Range/Units 04:34 04:34 WBC 20.5 H (3.5-10.8) 10^3/ul RBC 3.63 L (4.0-5.4) 10^6/ul Hgb 12.4 (12.0-16.0) g/dl Hct 37 (35-47) % MCV 103 H (80-97) fL MCH 34 H (27-31) pg MCHC 33 (31-36) g/dl RDW 14 (10.5-15) % Plt Count 124 L (150-450) 10^3/ul MPV 9 (7.4-10.4) um3 Immature Gran % (Auto) (0-9) % Neut % (Auto) 85.0 H (38-83) % Lymph % (Auto) 5.9 L (25-47) % Will % (Auto) 8.5 (1-9) % Eos % (Auto) 0.1 (0-6) % Baso % (Auto) 0.5 (0-2) % Absolute Neuts (auto) 17.4 H (1.5-7.7) 10^3/ul Absolute Lymphs (auto) 1.2 (1.0-4.8) 10^3/ul Absolute Monos (auto) 1.7 H (0-0.8) 10^3/ul Absolute Eos (auto) 0 Absolute Basos (auto) 0.1 Absolute Nucleated RBC 0.01 Neutrophils % (38-83) % Band Neutrophils % (0-8) % Lymphocytes % (25-47) % Monocytes % (0-13) % Nucleated RBC % 0 Normal RBC Morphology Macrocytosis Hem Pathologist Commnt INR (Anticoag Therapy) (0.89-1.11) APTT (26.0-36.3) seconds Sodium 133 (133-145) mmol/L Potassium 3.6 (3.5-5.0) mmol/L Chloride 100 L (101-111) mmol/L Carbon Dioxide 25 (22-32) mmol/L Anion Gap 8 (2-11) mmol/L BUN 13 (6-24) mg/dL Creatinine 0.54 (0.51-0.95) mg/dL Est GFR ( Amer) 140.8 (>60) Est GFR (Non-Af Amer) 109.5 (>60) BUN/Creatinine Ratio 24.1 H (8-20) Glucose 107 H (70-100) mg/dL Lactic Acid (0.5-2.0) mmol/L Calcium 7.9 L (8.6-10.3) mg/dL Total Bilirubin (0.2-1.0) mg/dL AST (13-39) U/L ALT (7-52) U/L Alkaline Phosphatase (34-104) U/L Troponin I (<0.04) ng/mL Total Protein (6.4-8.9) g/dL Albumin (3.2-5.2) g/dL Globulin (2-4) g/dL Albumin/Globulin Ratio (1-3) Urine Color Urine Appearance Urine pH (5-9) Ur Specific [place] (1.010-1.030) Urine Protein (Negative) Urine Ketones (Negative) Urine Blood (Negative) Urine Nitrate (Negative) Urine Bilirubin (Negative) Urine Urobilinogen (Negative) Ur Leukocyte Esterase (Negative) Urine WBC (Auto) (Absent) Urine RBC (Auto) (Absent) Ur Squamous Epith Cells (Absent) Calcium Oxalate Crystal (Absent) Urine Bacteria (Absent) Urine Glucose (Negative) Assess/Plan/Problems-Billing Assessment: - Patient Problems (1) Sepsis Current Visit: Yes Status: Acute Comment: Source could be dental or pulmonary. Blood C&S sent. Clinically doing well. I gave patient the choice of using a cephalosporin or no antibiotic and she chose no antibiotic. CBC 01/[address] Rodriguez. (2) Tobacco abuse Current Visit: Yes Status: Acute Code(s): Z72.0 - TOBACCO USE SNOMED Code( s): 241500675 Comment: Pt advised to quit smoking and avoid second hand smoke. Patient requested rx for a nicotine inhaler and I sent it. (3) COPD (chronic obstructive pulmonary disease) Current Visit: Yes Status: Acute Code(s): J44.9 - CHRONIC OBSTRUCTIVE PULMONARY DISEASE, UNSPECIFIED SNOMED Code(s): 57398247 Comment: Pt has never used a bronchodilator at home although she recently filled an rx for one. Duoneb ordered PRN. Status and Disposition: Discharge now. Fup Dr. Rodriguez.
--- NOTE | 2017-01-16 09:01 | PN ---
Progress Note - Progress Note Note: Time spent on discharge 35 minutes.
--- NOTE | 2017-01-16 22:16 | DS ---
DISCHARGE SUMMARY: DATE OF ADMISSION: DATE OF DISCHARGE: 01/16/17 HOSPITAL COURSE: This 76-year-old woman presented with a fever. She had been treated by a dentist for an abscess tooth. She was given Cipro as an outpatient , but had problems with her face turning red, her tongue feeling swollen. She took Levaquin and the same thing happened. The dentist pulled her abscess tooth the day before admission. She had temperature that went up to a 103 degrees. She did not have any pain or cough or shortness of breath. Notably, the patient has had similar reactions to many classes of antibiotics. She was given cefuroxime in the hospital and had a similar reaction. Her cefuroxime was stopped. After discussion with her, she decided she would prefer to have a trial with no antibiotic. She did well. She was afebrile over 24 hours before discharge. She does seem to cycle through feeling energetic and not feeling energetic. I think she is quite able to manage at home. She has mild rhonchi. I have encouraged her to quit smoking. It was notable that her platelet count fell, was 143 on admission and 124 the second hospital day. I have given her a requisition for a CBC to be done in 3 days, on 01/19/17 as an outpatient. FINAL DIAGNOSES: 1. Sepsis likely related to abscess tooth. 2. Chronic obstructive pulmonary disease. 3. Tobacco use disorder. DISCHARGE MEDICATIONS: 1. Nicotine inhaler 10 mg every 2 hours p.r.n. 2. Omeprazole 20 mg daily. 3. Aspirin 81 mg daily. 4. Gabapentin 300 mg daily. 5. Metoprolol 12.5 mg b.i.d. 6. Simvastatin 20 mg daily. 7. Nitroglycerin 0.4 mg sublingual as directed. 8. Clopidogrel 75 mg daily. 9. Vitamin B12 1000 mcg daily. CC: Rogers Rodriguez MD* [id number]/[facility] #: [id number] MTDD
[2017-01-17] MEDS ORDERED: Pantoprazole TAB (NF) 40 MG TAB PO SCH (06:00)
== END 2017-01-16 12:25 | disposition home or self-care (01) | DRG 872 ==
LOC: ED 14:46 → MEDTELE 17:54 → OBSVTOIN 01-15 09:53 → MED 01-15 12:30
PROVIDERS: ADMIT Internal Medicine; ATTEND Internal Medicine
DX: A41.9 Sepsis, unspecified organism (principal); J44.9 Chronic obstructive pulmonary disease, unspecified; K04.7 Periapical abscess without sinus; F17.210 Nicotine dependence, cigarettes, uncomplicated; Z80.9 Family history of malignant neoplasm, unspecified; Z82.49 Family history of ischemic heart disease and other diseases of the circulatory system; I25.2 Old myocardial infarction; Z85.3 Personal history of malignant neoplasm of breast; Z79.82 Long term (current) use of aspirin; Z79.899 Other long term (current) drug therapy; Z88.1 Allergy status to other antibiotic agents
CPT/HCPCS: 36415; 71020; 80048; 80053; 81003; 81015; 83605; 84484; 85025; 85060; 85610; 85730; 87040; 87086; 94760; 99406; A9270-GY; G0378; J0692; J0697; J1650

== ENCOUNTER 2018-03-12 17:07 | Inpatient (IN) | payer MEDICARE ==
[2018-03-12] MEDS ORDERED: methylPREDNISolone 125 MG* 2 ML VIAL IV ONE (17:26)
[2018-03-12] MEDS ORDERED: Albuterol/Ipratropium NEB.SOL* Albuterol 2.5 MG/Ipratropium 0.5 MG 3 ML INH ONE (17:26)
[2018-03-12 17:51] LABS: ABS Basophils 0.1 10^3/ul (0-0.2); ABS Eosinophils 0.1 10^3/ul (0-0.6); ABS Lymphocytes 1.4 10^3/ul (1.0-4.8); ABS Monocytes 1.3 10^3/ul (0-0.8); ABS Neutrophils 8.2 10^3/ul (1.5-7.7); ABS Nucleated RBC 0 10^3/ul; Eosinophil % 1.3 % (0-6); Hematocrit 40 % (35-47); Hemoglobin 13.5 g/dl (12.0-16.0); Lymphocyte % 12.9 % (25-47); Mean Corpuscular HGB Conc 34 g/dl (31-36); Mean Corpuscular Hemoglobin 34 pg (27-31); Mean Corpuscular Volume 100 fL (80-97); Mean Platelet Volume 7.6 um3 (7.4-10.4); Nucleated Red Blood Cells % 0.1; Platelet Count 322 10^3/ul (150-450); Red Blood Count 4.03 10^6/ul (4.00-5.40); Red Cell Distribution Width 13 % (10.5-15); White Blood Count 11.1 10^3/ul (3.5-10.8)
--- NOTE | 2018-03-12 17:59 | RAD ---
INDICATION: Dyspnea COMPARISON: January 14, 2017 TECHNIQUE: PA and lateral dual-energy views were obtained. FINDINGS: Bones/Soft Tissues: There are no acute bony findings. Cardiomediastinal: The cardiomediastinal silhouette is normal. Lungs: There is hyperinflation. There is airspace disease in the right lung base. Pleura: New moderate sized right-sided pleural effusion. Other: None IMPRESSION: INFILTRATE OR ATELECTASIS RIGHT LUNG BASE WITH RIGHT-SIDED EFFUSION. HYPERINFLATION.
[2018-03-12 18:08] LABS: EGFR Non-African American 98.6 (>60)
[2018-03-12] MEDS ORDERED: cefTRIAXone(*) 1 GM in NS 0.9% 50 ML* 50 ML IVPB ONE (19:32)
[2018-03-12] MEDS ORDERED: Iohexol 350* (CONTRAST) 500 ML MDV IV ONE (19:34)
--- NOTE | 2018-03-12 20:11 | RAD ---
INDICATION: Right-sided infiltrate with pleural effusion. Evaluate for pulmonary embolus. COMPARISON: Chest x-ray same date TECHNIQUE: Axial source images were obtained from the thoracic inlet to the hemidiaphragms following administration of [address] angiographic technique was utilized. Coronal and sagittal reconstructed images were acquired. CHEST FINDINGS: Neck/thyroid: The visualized neck to include the thyroid appear normal. Chest wall: There are no acute abnormalities of the bony thorax or chest wall. There is no supraclavicular, infraclavicular, or axillary lymphadenopathy. Lungs : There is a rounded area of consolidation or perhaps a lung mass in the medial right lung base and the azygos esophageal recess. This measures 3.3 x 2.1 cm In addition, there is airspace disease in right lung base which is presumed to represent compression atelectasis.. Minimal linear change in right middle lobe and left lung base most consistent with scarring or atelectasis. There is coarsening of the pulmonary interstitium compatible with emphysema. There are no endobronchial lesions. Cardiomediastinal structures: There is no CT evidence of acute pulmonary embolic disease. The heart is normal in size. There is no pericardial effusion. There is no evidence of aortic aneurysm or dissection. There is mild ectasia of the aortic root and ascending thoracic aorta. There is mild right infrahilar lymphadenopathy with a 1.3 cm lymph node. This could be neoplastic or reactive The esophagus appears normal. Pleura : There is a moderately sized and partially loculated right-sided pleural effusion. Other: Limited views the upper abdomen show a right renal cyst. IMPRESSION: 1. No CT evidence of acute pulmonary embolic disease. 2. Airspace disease right lung base. This appears somewhat masslike and could be inflammatory or neoplastic. If the patient is presenting as an acute pneumonitis, suggest follow-up. Alternatively, thoracentesis could be performed to evaluate for transudate versus exudate. 3. Mild right infrahilar adenopathy. 4. Emphysema
--- NOTE | 2018-03-12 21:02 | ED ---
Mindi Rasmussen Jacob, scribed for Shlomo Maya MD on 03/12/18 at 1914 . Shortness of Breath - HPI Summary HPI Summary: Pt is a 71 y/o F w/ c/o SOB which has worsened in the past three days and with exertion. Pt notes rightside pain that moves around from chest, breast, to RLQ. Pt has smoked for 62 years and quit a month ago. Pt has an intermittently productive cough which is not currently productive. She denies fever, LE edema, and abdominal pain but notes a decreased appetite for a long time. Pt was prescribed inhaler 3 days ago but claims SOB worsened upon usage. She is not on O2 at home. - History of Current Complaint Chief Complaint: EDShortnessOfBreath Time Seen by Provider: 03/12/18 17:18 Hx Obtained From: Patient Onset/Duration: Lasting Days - 3 days ago Aggrevating Factors: Other - exertion, usage of inhaler Associated Signs & Symptoms: Cough (Productive) - intermittently productive cough, currently non-productive, Chest Pain w/Cough - rightside, location of pain moves around to right breast to RLQ - Allergy/Home Medications Allergies/Adverse Reactions: Allergies Allergy/AdvReac Type Severity Reaction Status Date / Time azithromycin [From Zithromax] Allergy Unknown Verified 03/12/18 20:48 Reaction Details cefuroxime Allergy Rash Verified 03/12/18 20:48 cephalexin [From Keflex] Allergy Flushing Verified 03/12/18 20:48 ciprofloxacin Allergy Difficulty Verified 03/12/18 20:48 Breathing clindamycin Allergy Unknown Verified 03/12/18 20:48 Reaction Details codeine Allergy Altered Verified 03/12/18 20:48 Mental Status levofloxacin [From Levaquin] Allergy Swelling Verified 03/12/18 20:48 Of Face,Lips,& Throat metoclopramide [From Reglan] Allergy irritabilit Verified 03/12/18 20:48 y nitrofurantoin Allergy Hives Verified 03/12/18 20:48 [From Macrobid] Penicillins Allergy Hives Verified 03/12/18 20:48 sulfamethoxazole Allergy Dizziness Verified 03/12/18 20:48 [From Bactrim] tetracycline Allergy Yeast Verified 03/12/18 20:48 infection trimethoprim [From Bactrim] Allergy Dizziness Verified 03/12/18 20:48 Home Medications: Home Medications Aspirin EC TAB* [Ecotrin EC Low Dose 81 MG*] 81 mg PO DAILY 03/12/18 [History Confirmed 03/12/18] Calcium Carbonate/Vitamin D3 [Calcium 500 + Vit D Caplet] 1 tab PO BID 03/12/18 [History Confirmed 03/12/18] Clopidogrel TAB* [Plavix TAB*] 75 mg PO DAILY WITH MEAL 03/12/18 [History Confirmed 03/12/18] Cyanocobalamin TAB* [Vitamin B12 TAB*] 1,000 mcg PO DAILY WITH MEAL 03/12/18 [ History Confirmed 03/12/18] Gabapentin CAP(*) [Neurontin 100 mg CAP(*)] 100 mg PO DAILY 03/12/18 [History Confirmed 03/12/18] Metoprolol Tartrate TAB* [Lopressor TAB*] 12.5 mg PO BID WITH MEALS 03/12/18 [ History Confirmed 03/12/18] Multivitamins/Minerals TAB* [Theragran/minerals TAB*] 1 tab PO DAILY 03/12/18 [ History Confirmed 03/12/18] Pantoprazole TAB (NF) [Protonix TAB (NF)] 40 mg PO DAILY 03/12/18 [History Confirmed 03/12/18] Simvastatin TAB(NF) [Zocor(NF)] 20 mg PO DAILY 03/12/18 [History Confirmed 03/12] PMH/Surg Hx/FS Hx/Imm Hx Endocrine/Hematology History: Denies: Hx Diabetes Cardiovascular History: Reports: Hx Angina - PAST, Hx Coronary Artery Disease - 2 STENT, Hx Hypercholesterolemia, Hx Hypertension Denies: Hx Myocardial Infarction - "WAS TOLD SHE HAD AN EVENT, Hx Pacemaker/ ICD Respiratory History: Reports: Hx Chronic Obstructive Pulmonary Disease (COPD) - MILD History: Denies: Hx Renal Disease Musculoskeletal History: Reports: Hx Osteoporosis Denies: Hx Arthritis, Hx Rheumatoid Arthritis Sensory History: Reports: Hx Contacts or Glasses Denies: Hx Hearing Aid Opthamlomology History: Reports: Hx Contacts or Glasses Psychiatric History: Denies: Hx Panic Disorder - Cancer History Cancer Type, Location and Year: BREAST Hx Chemotherapy: No Hx Radiation Therapy: Yes - BREAST - Surgical History Surgery Procedure, Year, and Place: GALLBLADDER. Rt LUMPECTOMY - BREAST CANCER - 2006. CARDAIC STENTING - 2011- PROMUS ELEMENT Xs 2 - CONDITIONAL 5 UP TO 3T- ( PROCEDURE DONE AT [facility] [place]) Infectious Disease History: No Infectious Disease History: Denies: Traveled Outside the [place] in Last 30 Days - Family History Known Family History: Positive: Cardiac Disease - CAD, Other - breast CA - Social History Alcohol Use: Daily Alcohol Amount: 1-2 DAILY Hx Substance Use: No Substance Use Type: Reports: None Hx Tobacco Use: Yes Smoking Status (MU): Light Every Day Tobacco Smoker Type: Cigarettes Amount Used/How Often: 7-10 DAILY Length of Time of Smoking/Using Tobacco: SINCE 1954 Have You Smoked in the Last Year: Yes Review of Systems Positive: Other - decreased appetite. Negative: Fever Positive: Chest Pain - rightsided, notes pain moves around to right breast and RLQ Positive: Shortness Of Breath, Cough - intermittently productive in the past, currently non-productive Negative: Abdominal Pain Negative: Edema - LE All Other Systems Reviewed And Are Negative: Yes Physical Exam - Summary Physical Exam Summary: Appearance: Well-appearing, Well-nourished, lying in bed comfortably Skin: Warm, dry, no obvious rash Eyes: sclera anicteric, no conjunctival pallor ENT: mucous membranes moist, pharynx appears normal Neck: Supple, nontender Respiratory: Diminished breathing sounds, no wheezing nor consolidation Cardiovascular: Normal S1, S2. No murmurs. Normal distal pulses in tibial and radial bilaterally. Abdomen: Soft, nontender, normal active bowel sounds present Musculoskeletal: Normal, Strength/ROM Intact Neurological: A&Ox3, awake and alert, mentation is normal, speech is fluent and appropriate Psychiatric: affect is normal, does not appear anxious or depressed Triage Information Reviewed: Yes Vital Signs On Initial Exam: Initial Vitals Temp Pulse Resp BP Pulse Ox 99.1 F 93 22 155/88 90 03/12/18 17:08 03/12/18 17:08 03/12/18 17:08 03/12/18 17:08 03/12/18 17:08 Vital Signs Reviewed: Yes Diagnostics - Vital Signs Vital Signs Temp Pulse Resp BP Pulse Ox 03/12/18 17:08 99.1 F 93 22 155/88 90 - Laboratory Lab Results: Lab Results 03/12/18 03/12/18 03/12/18 Range/Units 17:36 17:36 17:36 WBC 11.1 H (3.5-10.8) 10^3/ul RBC 4.03 (4.00-5.40) 10^6/ul Hgb 13.5 (12.0-16.0) g/dl Hct 40 (35-47) % MCV 100 H (80-97) fL MCH 34 H (27-31) pg MCHC 34 (31-36) g/dl RDW 13 (10.5-15) % Plt Count 322 (150-450) 10^3/ul MPV 7.6 (7.4-10.4) um3 Neut % (Auto) 73.8 (38-83) % Lymph % (Auto) 12.9 L (25-47) % [place] % (Auto) 11.4 H (0-7) % Eos % (Auto) 1.3 (0-6) % Baso % (Auto) 0.6 (0-2) % Absolute Neuts (auto) 8.2 H (1.5-7.7) 10^3/ul Absolute Lymphs (auto) 1.4 (1.0-4.8) 10^3/ul Absolute Monos (auto) 1.3 H (0-0.8) 10^3/ul Absolute Eos (auto) 0.1 (0-0.6) 10^3/ul Absolute Basos (auto) 0.1 (0-0.2) 10^3/ul Absolute Nucleated RBC 0 10^3/ul Nucleated RBC % 0.1 D-Dimer, Quantitative > 1050 H (Less Than 230) ng/mL Sodium 137 (135-145) mmol/L Potassium 3.4 L (3.5-5.0) mmol/L Chloride 98 L (101-111) mmol/L Carbon Dioxide 30 (22-32) mmol/L Anion Gap 9 (2-11) mmol/L BUN 9 (6-24) mg/dL Creatinine 0.59 (0.51-0.95) mg/dL Est GFR ( Amer) 119.3 (>60) Est GFR (Non-Af Amer) 98.6 (>60) BUN/Creatinine Ratio 15.3 (8-20) Glucose 99 (70-100) mg/dL Calcium 9.5 (8.6-10.3) mg/dL Total Bilirubin 0.50 (0.2-1.0) mg/dL AST 15 (13-39) U/L ALT 7 (7-52) U/L Alkaline Phosphatase 75 (34-104) U/L Troponin I 0.00 (<0.04) ng/mL Total Protein 6.6 (6.4-8.9) g/dL Albumin 3.4 (3.2-5.2) g/dL Globulin 3.2 (2-4) g/dL Albumin/Globulin Ratio 1.1 (1-3) Result Diagrams: 03/12/18 17:36 03/12/18 17:36 Lab Statement: Any lab studies that have been ordered have been reviewed, and results considered in the medical decision making process. - Radiology CXR Xray Interpretation: Positive (See Comments) - Inflitrate or atelectasis right lung base with right sided effusion. Hyperinflation. This report was reviewed by ED physician. Radiology Interpretation Completed By: Radiologist - CT CTA Chest/Thorax CT Interpretation: Positive (See Comments) CT Interpretation Completed By: Radiologist - 1. No CT evidence of acute pulmonary embolic disease. 2. Airspace disease right lung base. This appears somewhat masslike and could be inflammatory or neoplastic. If the patient is presenting as an acute pneumonitis, suggest follow-up. Alternatively, thoracentesis could be performed to evaluate for transudate versus exudate. 3. Mild right infrahilar adenopathy. 4. Emphysema This report was reviewed by ED physician. - EKG 1738 Cardiac Rate: NL EKG Rhythm: Sinus Rhythm EKG Comparison: Other - NSR at 83 BPM, P waves, QRS complex, and T waves are within normal limits, T waves and intervals are normal, no ischemic changes. This is a normal EKG Re-Evaluation - Re-Evaluation Second Eval Re-Evaluation Time: 19:47 Comment: Results of tests and plan of care for pt was discussed. Pt will be admitted. Course/Dx - Diagnoses Provider Diagnoses: Pneumonia - Physician Notifications Discussed Care of Patient With: Al Melendez Time Discussed With Above Provider: 19:28 Instructed by Provider To: Other - Dr. Melendez agrees to admit pt Discharge - Sign-Out/Discharge Documenting (check all that apply): Discharge/Admit/Transfer - Discharge Plan Condition: Guarded Disposition: ADMITTED TO [facility] Referrals: Rogers Rodriguez MD [Primary Care Provider] - - Billing Disposition and Condition Condition: GUARDED Disposition: Admitted to [facility] The documentation as recorded by the Mindi hester Jacob accurately reflects the service I personally performed and the decisions made by me, Shlomo Maya MD.
[2018-03-12] MEDS ORDERED: Albuterol 2.5 MG/3 ML NEB.SOL* (0.083%) INH PRN (21:08)
[2018-03-12] MEDS ORDERED: Ondansetron INJ* 2 MG/ML VIAL IV PRN (21:08)
[2018-03-12] MEDS ORDERED: Azithromycin IV(*) 500 MG in NS 0.9% 250 ML* 250 ML IVPB SCH (21:15)
[2018-03-12] MEDS ORDERED: Potassium Chlor TAB* 20 MEQ TAB.ER PO ONE (21:22)
[2018-03-12] MEDS: Heparin VIAL(*) 5000 UNITS/ML VIAL (FIVE THOUSAND) SUBCUT SCH (23:14)
[2018-03-12] MEDS: predniSONE TAB* 20 MG PO SCH (23:16)
[2018-03-12] MEDS: DOXYcycline IV* 100 MG in NS 0.9% 250 ML* 250 ML IVPB SCH (23:19)
[2018-03-12] MEDS: Albuterol/Ipratropium NEB.SOL* Albuterol 2.5 MG/Ipratropium 0.5 MG 3 ML INH SCH (23:49)
[2018-03-13] MEDS: Acetaminophen TAB* 325 MG PO PRN ×3 (00:34→17:25)
--- NOTE | 2018-03-13 01:31 | HP ---
CC: Dr. Rodriguez * HISTORY AND PHYSICAL: DATE OF ADMISSION: 03/12/18 PRIMARY CARE PROVIDER: Dr. Rodriguez. ATTENDING PHYSICIAN WHILE IN THE HOSPITAL: Al Melendez MD * (report dictated by Presley Swenson NP). CHIEF COMPLAINT: 1. Cough. 2. Shortness of breath. HISTORY OF PRESENT ILLNESS: Mrs. Aguayo is a 77-year-old female patient. She has a history of hypertension, hyperlipidemia, history of CAD, breast cancer, and history of LA. She is coming into the ED today. She said she has had about 2- month history of just worsening shortness of breath. Over the last couple of weeks, it has gotten progressively worse. She said that when this first started 2 months ago, she did have a productive cough but she really did not have a cough now. She noticed that with exertion she is just becoming more short of breath she has been having. No fevers or chills. She said she has lost 4 pounds over the last year. She says that the breathing is about the same if she lays flat or sits up. She does state that she has been having right -sided chest discomfort, non- exertional. She described this as a constant for the last couple of weeks. It does have times where it is more intense than other times and it is a shooting, stabbing pain. There has been no nausea, no vomiting. No dysuria, frequency. She says that the cough was productive initially but there is no cough now. She says she recently talked to her primary and they prescribed inhalers but this has not been helping. She denies having any abdominal discomfort, any nausea or vomiting. She came into the ED today. There was concern for possible pneumonia. So we were asked to evaluate for admission. PAST MEDICAL HISTORY: Significant for: 1. Hypertension. 2. Hyperlipidemia. 3. CAD. 4. Breast cancer. 5. LA. PAST SURGICAL HISTORY: She has had: 1. Heart catheterization. 2. Cholecystectomy. 3. Lumpectomy. HOME MEDICATIONS: Include: 1. Aspirin 81 mg daily. 2. Multivitamin one tablet daily. 3. Calcium one tablet p.o. b.i.d. 4. B12 1000 mcg p.o. daily. 5. Neurontin 100 mg daily. 6. Zocor 20 mg daily. 7. Protonix 40 mg daily. 8. Plavix 75 mg daily with meals. 9. Lopressor 12.5mg p.o. b.i.d. ALLERGIES TO MEDICATIONS: Include AZITHROMYCIN, CEFUROXIME, KEFLEX, CIPROFLOXACIN, CLINDAMYCIN, CODEINE, LEVAQUIN, REGLAN, MACROBID, PENICILLIN, BACTRIM, TETRACYCLINE. FAMILY HISTORY: Mother had a history of cancer. Father had a history of LA. SOCIAL HISTORY: She is a pack a day smoker for 63 years. She quit about a month ago. She does drink 2 glasses of wine at dinner. Surrogate decision maker is her son. REVIEW OF SYSTEMS: There are no documented fevers. There was no significant weight loss, no double vision. No ear discharge. No rhinorrhea. No sore throat. No thyroid enlargement. She did admit to having cough. There was no orthopnea. There is no nocturnal dyspnea. She denies any abdominal pain. There is no nausea, no vomiting. No dysuria. No frequency. There has been no seizure. No loss of conscious, no pruritus, and no skin ulceration. Review of 14 systems completed, all others negative. PHYSICAL EXAMINATION GENERAL: At this time, Mrs. Aguayo is a 78-year-old female patient. She does appear to be cachetic. She is sitting in the ED stretcher. She does not appear to be in any acute distress. VITAL SIGNS: Blood pressure 153/95, pulse 95, respirations were 18, O2 sat 92% on 2 L, temperature 99.1. HEENT: Head is atraumatic and normocephalic. Eyes: EOMs are intact. Sclerae anicteric and not pale. Throat: Oral mucosa appears to be moist. No oropharyngeal erythema. NECK: Supple. LUNGS: Diminished on the right side and she did have a wheeze in the left lower base, equal diaphragmatic expansion. HEART: Sounds S1, S2. Regular rate and rhythm. No murmurs, rubs, or gallops. ABDOMEN: Soft, flat, nontender. Bowel sounds present. EXTREMITIES: Pulses 2+ throughout. She is moving all extremities with 5/5 strength. NEUROLOGICAL: She is awake, alert. She is oriented x3. Tongue midline. [employer] were equal. She had no gross focal deficits. SKIN: Grossly intact. LABORATORY DATA/DIAGNOSTIC STUDIES: Labs reveal a WBC of 11.1, RBC of 4.03, hemoglobin of 13.5, hematocrit of 40, platelet count of 322. The D-dimer was greater than 1050. The sodium was 137, potassium was 3.4, chloride 98, bicarb 30 , BUN 9, creatinine of 0.59, glucose 99, calcium was 9.5, total bili 0.5, AST 15 , ALT 7, alk phos 75, troponin 0. She did have a CTA of the chest, which revealed no CT evidence of acute pulmonary embolic disease, air space disease in the right lung base appeared to be somewhat mass like. It could be inflammatory or neoplastic. If patient is presenting as an acute pneumonitis, suggest followup alternately to evaluate for transudate versus exudate. Mild right infrahilar adenopathy, emphysema. She had a chest x-ray obtained today, which revealed infiltrate or atelectasis at right lung base with right-sided pleural effusion. EKG today shows normal sinus rhythm, rate of 83. No ST elevations or T-wave inversions are noted. Old medical records were reviewed. ASSESSMENT AND PLAN: Mrs. Aguayo is a 77-year-old female patient coming into the emergency department today with complaints of cough, shortness of breath, progressively getting worse in the last couple of months. We were asked to evaluate for admission. She will be admitted under inpatient status for: 1. Shortness of breath. At this point, I suspect this was probably secondary to the pleural effusion, possibly chronic obstructive pulmonary disease exacerbation and pneumonia. It is concerning though with this pleural effusion on one side, could it be infectious, could it be malignancy. Given the fact this story has been going on for a couple of months and her history of smoking, I do have a call out to our Oncology team as she is known to them to see how they would like us to proceed. I also do note that on x-ray there is a mass like appearance near the right chest wall, which has been there on previous x- ray. There is a question if we should have General Surgery sent this for biopsy or if we should go for the pleural effusion. At this point to be safe, I will place her on antibiotics. We will get Legionella urinary antigen. I will try to get a sputum culture if possible. I will put her on steroids and in addition to this Dulera along with inhaled nebs and we will continue to follow. 2. Hypertension. Continue meds as prescribed. 3. Hyperlipidemia. Continue her current medical regimen. 4. History of coronary artery disease and myocardial infarction. Continue with her aspirin, Plavix therapy and beta-marta at this point and statin therapy. 5. History of breast cancer. Follow with her primary oncologist. 6. DVT prophylaxis. She is high risk. I have place her on heparin subcutaneous. 7. Code status. Full code. 8. Fluid, electrolyte, nutrition. She can have a heart-healthy diet. TIME SPENT: On admission was 60 minutes, greater than half the time spent face- to- face with the patient obtaining my history and physical, the other half of the time was spent going over the plan of care with the patient and implementing plan of care. I did discuss the plan of care with my attending, Dr. Melendez, he is in agreement. PRESLEY SWENSON NP [id number]/[facility] #: [id number] ERIC
[2018-03-13] MEDS: Albuterol/Ipratropium NEB.SOL* Albuterol 2.5 MG/Ipratropium 0.5 MG 3 ML INH SCH ×5 (03:27→20:07)
[2018-03-13 05:32] LABS: ABS Basophils 0 10^3/ul (0-0.2); ABS Eosinophils 0 10^3/ul (0-0.6); ABS Lymphocytes 0.6 10^3/ul (1.0-4.8); ABS Monocytes 0.1 10^3/ul (0-0.8); ABS Neutrophils 6.4 10^3/ul (1.5-7.7); ABS Nucleated RBC 0 10^3/ul; Eosinophil % 0 % (0-6); Hematocrit 39 % (35-47); Hemoglobin 12.9 g/dl (12.0-16.0); Lymphocyte % 8.7 % (25-47); Mean Corpuscular HGB Conc 33 g/dl (31-36); Mean Corpuscular Hemoglobin 34 pg (27-31); Mean Corpuscular Volume 101 fL (80-97); Mean Platelet Volume 7.8 um3 (7.4-10.4); Nucleated Red Blood Cells % 0; Platelet Count 320 10^3/ul (150-450); Red Blood Count 3.82 10^6/ul (4.00-5.40); Red Cell Distribution Width 13 % (10.5-15); White Blood Count 7.2 10^3/ul (3.5-10.8)
[2018-03-13] MEDS: Heparin VIAL(*) 5000 UNITS/ML VIAL (FIVE THOUSAND) SUBCUT SCH ×3 (05:33→23:32)
[2018-03-13 05:45] LABS: INR 0.91 (0.77-1.02)
[2018-03-13 05:48] LABS: EGFR Non-African American 93.1 (>60)
[2018-03-13] MEDS: Mometasone/Formoter 200/5 MDI INH SCH ×2 (08:30→20:07)
[2018-03-13] MEDS ORDERED: Clopidogrel TAB* 75 MG PO SCH (08:30)
[2018-03-13] MEDS ORDERED: Aspirin EC TAB* 81 MG TAB.EC PO SCH (09:00)
[2018-03-13] MEDS: Metoprolol Tartrate TAB* 25 MG PO SCH ×2 (10:00→17:24)
[2018-03-13] MEDS: Gabapentin CAP(*) 100 MG PO SCH ×2 (10:05→11:25)
[2018-03-13] MEDS: Atorvastatin* 10 MG TAB PO SCH ×2 (10:05→11:25)
[2018-03-13] MEDS: CMCS Pantoprazole TAB (NF) 40 MG TAB PO SCH ×2 (10:06→11:25)
[2018-03-13] MEDS: predniSONE TAB* 20 MG PO SCH ×2 (10:06→11:24)
--- NOTE | 2018-03-13 10:22 | PN ---
Subjective Date of Service: 03/13/18 Interval History: Pt reports she feels better today "overall" - reporting more energy, less SOB and no wheezing today. Continues to have a cough with sputum production. She reports a "funny feeling" under her right breast. She denies CP. No fevers/ chills. Biggest c/o this am is that she is hungry. Objective Active Medications: Acetaminophen (Tylenol Tab*) 650 mg PO Q4H PRN PRN Reason: FEVER/PAIN Last Admin: 03/13/18 10:00 Dose: 650 mg Albuterol (Ventolin 2.5 Mg/3 Ml Neb.Karen*) 2.5 mg INH Q2H PRN PRN Reason: SOB/WHEEZING Albuterol/Ipratropium (Duoneb (Albuterol 2.5 Mg/Ipratropium 0.5 Mg)) 1 neb INH [id number] [facility] Last Admin: 03/13/18 08:30 Dose: 1 neb Aspirin (Aspirin Ec Tab*) 81 mg PO DAILY [facility] Last Admin: 03/13/18 10:05 Dose: Not Given Atorvastatin Calcium (Lipitor*) 10 mg PO DAILY [facility] Last Admin: 03/13/18 10:05 Dose: Not Given Clopidogrel Bisulfate (Plavix Tab*) 75 mg PO DAILY WITH MEAL [facility] Last Admin: 03/13/18 10:05 Dose: Not Given Gabapentin (Neurontin Cap(*)) 100 mg PO DAILY [facility] Last Admin: 03/13/18 10:05 Dose: Not Given Heparin Sodium (Porcine) (Heparin Vial(*)) 5,000 units SUBCUT Q8HR [facility] Last Admin: 03/13/18 05:33 Dose: 5,000 units Doxycycline Hyclate 100 mg/ (Sodium Chloride) 250 mls @ 250 mls/hr IVPB Q12H [facility] Last Admin: 03/12/18 23:19 Dose: 250 mls/hr Metoprolol Tartrate (Lopressor Tab*) 12.5 mg PO BID WITH MEALS [facility] Last Admin: 03/13/18 10:00 Dose: 12.5 mg Mometasone Furoate/Formoterol Fumar (Dulera 200/5 Mdi*) 2 puff INH BID STEPHANIE Last Admin: 03/13/18 08:30 Dose: 2 puff Ondansetron HCl (Zofran Inj*) 4 mg IV Q6H PRN PRN Reason: NAUSEA Pantoprazole Sodium (Protonix Tab (Nf)) 40 mg PO DAILY [facility] Last Admin: 03/13/18 10:06 Dose: Not Given Potassium Chloride (Klor-Con Liquid*) 40 meq PO ONCE ONE Stop: 03/13/18 22:04 Prednisone (Deltasone Tab*) 60 mg PO DAILY [facility] Last Admin: 03/13/18 10:06 Dose: Not Given Vital Signs - 8 hr 03/13/18 03/13/18 03/13/18 03:26 03:31 07:14 Temperature 98.0 F 97.6 F Pulse Rate 78 76 Respiratory 20 16 Rate Blood Pressure 130/72 143/78 (mmHg) O2 Sat by Pulse 96 97 95 Oximetry 03/13/18 08:33 Temperature Pulse Rate 79 Respiratory 14 Rate Blood Pressure (mmHg) O2 Sat by Pulse 93 Oximetry Oxygen Devices in Use Now: Nasal Cannula Appearance: 77 yo female A+Ox3 in NAD Eyes: No Scleral Icterus, PERRLA Ears/Nose/Mouth/Throat: NL Teeth, Lips, Gums, Mucous Membranes Moist Neck: NL Appearance and Movements; NL JVP Respiratory: Symmetrical Chest Expansion and Respiratory Effort, - - Right lung base diminished otherwise good aeration throughout, no wheezing noted Cardiovascular: NL Sounds; No Murmurs; No JVD, RRR, No Edema Abdominal: NL Sounds; No Tenderness; No Distention Skin: No Rash or Ulcers, No Nodules or Sclerosis Neurological: Alert and Oriented x 3, NL Sensation, NL Muscle Strength and Tone Lines/Tubes/Other Access: Clean, Dry and Intact Peripheral IV Nutrition: Taking PO's Result Diagrams: 03/13/18 05:24 03/13/18 05:24 Additional Lab and Data: Lab Results 03/12/18 03/12/18 03/12/18 Range/Units 17:36 17:36 17:36 WBC 11.1 H (3.5-10.8) 10^3/ul RBC 4.03 (4.00-5.40) 10^6/ul Hgb 13.5 (12.0-16.0) g/dl Hct 40 (35-47) % MCV 100 H (80-97) fL MCH 34 H (27-31) pg MCHC 34 (31-36) g/dl RDW 13 (10.5-15) % Plt Count 322 (150-450) 10^3/ul MPV 7.6 (7.4-10.4) um3 Neut % (Auto) 73.8 (38-83) % Lymph % (Auto) 12.9 L (25-47) % [place] % (Auto) 11.4 H (0-7) % Eos % (Auto) 1.3 (0-6) % Baso % (Auto) 0.6 (0-2) % Absolute Neuts (auto) 8.2 H (1.5-7.7) 10^3/ul Absolute Lymphs (auto) 1.4 (1.0-4.8) 10^3/ul Absolute Monos (auto) 1.3 H (0-0.8) 10^3/ul Absolute Eos (auto) 0.1 (0-0.6) 10^3/ul Absolute Basos (auto) 0.1 (0-0.2) 10^3/ul Absolute Nucleated RBC 0 10^3/ul Nucleated RBC % 0.1 D-Dimer, Quantitative > 1050 H (Less Than 230) ng/mL Sodium 137 (135-145) mmol/L Potassium 3.4 L (3.5-5.0) mmol/L Chloride 98 L (101-111) mmol/L Carbon Dioxide 30 (22-32) mmol/L Anion Gap 9 (2-11) mmol/L BUN 9 (6-24) mg/dL Creatinine 0.59 (0.51-0.95) mg/dL Est GFR ( Amer) 119.3 (>60) Est GFR (Non-Af Amer) 98.6 (>60) BUN/Creatinine Ratio 15.3 (8-20) Glucose 99 (70-100) mg/dL Calcium 9.5 (8.6-10.3) mg/dL Total Bilirubin 0.50 (0.2-1.0) mg/dL AST 15 (13-39) U/L ALT 7 (7-52) U/L Alkaline Phosphatase 75 (34-104) U/L Troponin I 0.00 (<0.04) ng/mL Total Protein 6.6 (6.4-8.9) g/dL Albumin 3.4 (3.2-5.2) g/dL Globulin 3.2 (2-4) g/dL Albumin/Globulin Ratio 1.1 (1-3) Assess/Plan/Problems-Billing Assessment: Mr. Aguayo is a 77 yo female with a PMH of breast ca, HI 2011 with stent placement, HTN, HLD who presented on 03/12 with c/o SOB found to have a pleural effusion and possible mass. - Patient Problems (1) SOB (shortness of breath) Comment: - Questionable pneumonia vs mass with pleural effusion with COPD exacerbation component - CTA showing " no PE, airspace disease of the right lung base, appears mass like could be inflammatory vs neoplastic. Mild right infrahilar adenopathy. Emphysema". - Surgery to perform Thorancentesis - ASA/Plavix are being held- plan for diagnostic procedure, she may require a second procedure to pull larger amount of fluid in a few days after being off her plavix/ASA for a few days. Currently though she is not SOB and this could most likely be done as an outpt. - Appreciate Oncology consult Dr. Love saw this am- Following along. Recommends MRI brain w/wo for report of new HAs. (2) HTN (hypertension) Comment: - continue metoprolol (3) Hx of coronary artery disease Comment: - [place] with stent placement on 2011 with stent placement - ASA/Plavix on hold. - Per 2012 cath report recommended Plavix for 1 year, will DC plavix, and at discharge the patient can resume her ASA (4) COPD (chronic obstructive pulmonary disease) Comment: - with exacerbation - improving - continue prednisone with taper - continue Doxy - blood cx and sputum cx pending - will require neb machine to be set-up for home use at discharge (5) HLD (hyperlipidemia) Comment: - statin (6) Full code status Comment: HSQ (7) DVT prophylaxis Status and Disposition: Inpatient. Home when medically stable.
[2018-03-13] MEDS: DOXYcycline IV* 100 MG in NS 0.9% 250 ML* 250 ML IVPB SCH ×2 (11:19→23:32)
--- NOTE | 2018-03-13 12:38 | PN ---
Progress Note - Progress Note Date of Service: 03/13/18 Note: Seen for right pleural effusion Attempted to aspirate fluid from right pleural space. Only air, no fluid. Will check CXR dictated.
--- NOTE | 2018-03-13 13:05 | CONS ---
CC: Dr. Rodriguez; Dr. Oliveira * MEDICAL ONCOLOGY CONSULTATION: DATE OF CONSULT: 03/13/18 REASON FOR CONSULT: New large right pleural effusion in the setting of a smoker with increased shortness of breath, fatigue, and a prior history of breast cancer. HISTORY OF PRESENT ILLNESS: Ms. Aguayo is a 77-year-old female. She reports approximately a 2-month period of worsening shortness of breath, although she reports this has been coming on gradually over a much longer period of time. Over the past month, she has been much more fatigued to the point of limiting her activity. Recently, she has been unable to easily walk up her stairs and her bedroom and bathroom are all from the second floor. She has had some pain in the right lateral chest and also the right lateral back. Also, has noted some pain which she feels might be on the right breast. There is no change in this pain with coughing or with deep breathing. She reports that she quit smoking 2 months ago and since that period of time, she has been wheezing less and also has had a decrease in her cough. She was seen in the office by Dr. Oliveira on 03/08/18 as a part of her routine followup. At that time, she reported difficulty sleeping, fatigue, and right upper quadrant pain, as well as the right chest and breast pain. Abdominal imaging studies were set up to be done as an outpatient after that visit. She subsequently called her primary care physician's office, Dr. Rodriguez, the following day on 03/09/18 and was prescribed 2 inhalers over the phone. She picked up one of these and did not pick up driver the other because of the cost. Taking the inhaler has not made any difference over the last several days. She presented to the emergency room on 03/12/18 with increased shortness of breath and concern for pneumonia. PAST MEDICAL AND SURGICAL HISTORY: Breast cancer, 2007, ER/AZ positive, HER-2 positive. 6 mm with lymphovascular invasion but no involved lymph nodes, [id number] stage I breast cancer. This was treated with lumpectomy and radiation followed by 5 years of Femara finishing in March of 2012. She has just recently had a mammogram, which was unremarkable within the past month. History of coronary artery disease, status post cardiac stents x2 in 2011, and has been on aspirin and Plavix since without any significant cardiac issues since that period of time. Status post cholecystectomy. Status post lumpectomy as discussed above. History of hypertension, history of hyperlipidemia. She is unclear if she has ever had a myocardial infarction. MEDICATIONS: At the time of admission include: 1. Aspirin 81 mg daily. 2. Plavix 75 mg daily. 3. Neurontin 100 mg p.r.n. but has not been taking recently. 4. Metoprolol 25 mg b.i.d. 5. Protonix 40 mg daily. 6. Zocor 20 mg daily. 7. Vitamin B12 1000 mcg daily. 8. Multivitamin daily. 9. Calcium b.i.d. 10. Biotin daily. ALLERGIES: To AZITHROMYCIN, CEPHALOSPORINS, CIPRO, CLINDAMYCIN, CODEINE, REGLAN , PENICILLIN, SULFA DRUGS, TETRACYCLINE. FAMILY HISTORY: Mother of a cancer at age 69, unclear site. Sister with breast cancer in her 60s and still alive. Another sister of cancer in her 70s, again of unclear type. Father at age 61 of cardiovascular disease. No other family history of malignances or any known coronary artery disease. SOCIAL HISTORY: One pack of cigarettes per day for 62 years, cutting down 1 to 2 years ago to about a quarter pack per day including completely 2 months ago. Alcohol about 2 drinks per day. for many years. 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 REVIEW OF SYSTEMS: Some mild numbness in the right hand and right foot, which is better with Neurontin and no longer needing it and much improved. No significant focal weakness. Headaches, which are unusual for her, over the past couple of weeks, bifrontal, occasionally helped by Tylenol but often not. Rates as a 5/10, occurring almost every night and potentially waking her up in the morning. Appetite has been poor. Weight is down 4 pounds from 104 to 100 over the past year. No nausea or vomiting. No significant change in bowel or bladder habits. No major arthritic or bony complaints. Pain in the right chest and pain in the right upper quadrant as discussed above. Review of systems otherwise negative except as discussed above. PHYSICAL EXAM: A 77-year-old female in no acute distress. Vital Signs: Blood pressure 143/78, pulse 80, and afebrile since admission with a T-max of 99.2. HEENT: PERRL, EOMI. No erythema or exudates. No palpable cervical, supraclavicular, or axillary adenopathy. Lungs: Left clear, right with diminished breath sounds approximately half way up. No rales, rhonchi, or wheezes. Abdomen: Soft and nontender without masses or organomegaly. Extremities: No edema. Breasts: Status post lumpectomy in the right upper outer quadrant without masses or discharge. Neurologic Exam: The patient is alert and oriented x3, Cranial nerves II through XII are intact. Motor is 5/5 throughout. DIAGNOSTIC STUDIES/LAB DATA: CBC with a white count of 7200, hematocrit 39, hemoglobin 12.9, platelet count 320,000. Chemistry Studies: Sodium 138, potassium 3.7, chloride 100, bicarb 30, BUN 11, creatinine 0.62, glucose 151, LFTs are within normal limits. CT scan of the chest was performed as a CTA on 03/12/18 and images are personally reviewed. This reveals a large right pleural effusion. There is upper limit of normal to just above normal adenopathy noted in the infrahilar region with a 1.2- or 1.3-cm short axis lymph node. There are no obvious masses in the lung. There is an area in the azygoesophageal recess, which could be a lung mass or may just be some atelectasis measuring approximately 3 cm. IMPRESSION AND PLAN: 1. A 77-year-old female, long-time smoker, 75-mnob-jell smoking history with large right pleural effusion and concern for a potential lung cancer. Certainly , this could also be on an infectious basis with the effusion. She does report being somewhat better since being started on antibiotics yesterday. 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 Diagnostic thoracentesis will be performed today with just a small amount of fluid to be removed and sent for culture and for cytology. If this does not reveal a diagnosis, further studies will need to be performed. These might potentially include further imaging such as a CT of the abdomen and pelvis or potentially a PET scan. In addition, to help her symptoms, she will likely require a therapeutic thoracentesis sometime within the next week. 2. History of breast cancer. It is unlikely this is related to her breast cancer, although it was HER-2 positive. Her breast cancer is only 6 mm in size and lymph node negative. She has completed hormonal therapy for breast cancer many years ago. We will await pathology results. 3. History of coronary artery disease. Status post stents 6 years ago. Has remained on aspirin and Plavix and certainly does not need to remain on these at the present time. Aspirin should be resumed once she is finished with her diagnostic workup. 4. History of osteoporosis and also history of osteonecrosis of the jaw. She will continue her routine outpatient followup. 5. Right upper quadrant discomfort. Likely this is related to the pleural effusion. Certainly, no abnormalities are seen to explain this otherwise on the CTA of the chest. If this turns out to be malignant, CT or PET scan of the abdomen will be performed and we will further evaluate this. [id number]/[facility] #: [id number] MTDD
[2018-03-13] MEDS: Cyanocobalamin TAB* 500 MCG PO SCH (13:24)
--- NOTE | 2018-03-13 13:24 | RAD ---
INDICATION: Status post thoracentesis. COMPARISON: Comparison is made with a prior study from one day earlier. TECHNIQUE: A portable view of the chest was obtained. FINDINGS: Cardiac and mediastinal contours appear to be within normal limits. There is a small a moderate size right pleural effusion which has decreased in size. There is a nodular infiltrate at the right lung base. There is a moderate size right pneumothorax. IMPRESSION: 1. MODERATE SIZE RIGHT HYDROPNEUMOTHORAX. 2. NODULAR INFILTRATE AT THE RIGHT LUNG BASE RECOMMEND FOLLOW-UP CHEST X-RAYS TO RESOLUTION.
[2018-03-13] MEDS ORDERED: Lidocaine 1%* 5 ML VIAL ONE (14:00)
[2018-03-13] MEDS ORDERED: Lidocaine 1% INJ* 10 MG/ML 30 ML SDV ONE (14:11)
[2018-03-13] MEDS ORDERED: oxyCODONE/Acetamin 5/325 MG* TAB PO PRN (14:47)
--- NOTE | 2018-03-13 15:38 | RAD ---
INDICATION: Pneumothorax, chest tube placement. COMPARISON: Comparison is made with a prior chest x-ray study from approximately 2 hours earlier. TECHNIQUE: A portable view of the chest was obtained. FINDINGS: Cardiac and mediastinal contours appear to be within normal limits. There is a chest tube present on the right side which projects over the mid lung. There has been reexpansion of the right lung with a small residual pneumothorax visualized at the lung apex in laterally at the right lung base. There is subcutaneous emphysema in the right lateral chest wall. There has been interval resolution of previous seen noted small right pleural effusion and right basilar infiltrate. IMPRESSION: STATUS POST CHEST TUBE PLACEMENT ON THE RIGHT SIDE AND INTERVAL DECREASE IN SIZE OF THE PNEUMOTHORAX NOTED.
[2018-03-13] MEDS ORDERED: Potassium Chloride LIQUID* 20 MEQ PACKET PO ONE (22:03)
--- NOTE | 2018-03-13 22:26 | OP ---
CC: Dr. Love * DATE OF OPERATION: 03/13/18 - ROOM #446 DATE OF : 38 SURGEON: Fredrick Calero MD OPERATIVE PROCEDURE: Sampling of the fluid for diagnostic purposes INDICATIONS: The patient is a 77-year-old female with a history of breast cancer, who comes in with shortness of breath, was found to have a right pleural effusion. Dr. Love talked to me and requests a sampling of the fluid for diagnostic purposes. She is on Plavix and aspirin, so the plan is to do this just with a skinny needle. I have reviewed her chest x-ray and her CT scan and discussed the case with the patient and with Dr. Love. On examination, she is quite slender, slightly tachypneic with substantial decrease in breath sounds on the right side. DESCRIPTION OF PROCEDURE: With the patient sitting, leaning over the bedside table, the right posterior chest was examined. The ribs are counted out and marked. Sterile prep was carried out. Sterile gloves were utilized. A small wheal of 1% lidocaine was placed over the superior aspect of the 10th rib posteriorly and upon entering above the 10th rib, only air was obtained. There was no fluid obtained. There was no blood. Attention was then taken down one level to the 11th rib and again, local anesthetic administered and again, air was obtained and just a trace of pink fluid was obtained, less than 1 mL. At this point, the needle was removed. Bandage was placed and a chest x-ray will be obtained. [id number]/[facility] #: [id number] MTDD
[2018-03-14] MEDS: oxyCODONE/Acetamin 5/325 MG* TAB PO PRN ×5 (00:46→22:37)
[2018-03-14] MEDS: Albuterol/Ipratropium NEB.SOL* Albuterol 2.5 MG/Ipratropium 0.5 MG 3 ML INH SCH ×4 (01:00→19:05)
--- NOTE | 2018-03-14 04:28 | OP ---
CC: Dr. Love * DATE OF OPERATION: 03/13/18 - ROOM #446 DATE OF : 38 SURGEON: Fredrick Calero MD CASING CREW: None. ANESTHESIOLOGIST: None. ANESTHESIA: PRE-OP DIAGNOSIS: Hydropneumothorax. POST-OP DIAGNOSIS: Hydropneumothorax. OPERATIVE PROCEDURE: Placement of right thoracostomy tube. DESCRIPTION OF PROCEDURE: The patient is in the outpatient procedure room. The right chest is prepped with antiseptic and draped in a sterile fashion. In the right midaxillary line roughly at the level of the inframammary fold, local anesthetic was administered after sterile prep and drape. Sterile gown, gloves , and mask were utilized, and an approximately 2 cm incision was created. A clamp was used into the pleural space and air and fluid was forthcoming. A 24-Slovak chest tube was placed into the pleural space, sutured with 2-0 Prolene and attached to a Pleur-evac and a sample was captured and sent for laboratory analysis. Gauze dressing was placed and she tolerated the procedure well. Follow up chest x-ray, everything looked good and she was transported back to her room upstairs. Specimen is right pleural fluid. A total of about 900 mL was captured. [id number]/[facility] #: [id number] [facility]
[2018-03-14] MEDS: Heparin VIAL(*) 5000 UNITS/ML VIAL (FIVE THOUSAND) SUBCUT SCH ×3 (06:00→22:38)
[2018-03-14] MEDS: Mometasone/Formoter 200/5 MDI INH SCH ×2 (07:12→19:06)
[2018-03-14 07:50] LABS: ABS Basophils 0 10^3/ul (0-0.2); ABS Eosinophils 0 10^3/ul (0-0.6); ABS Lymphocytes 1.7 10^3/ul (1.0-4.8); ABS Monocytes 1.4 10^3/ul (0-0.8); ABS Neutrophils 12.7 10^3/ul (1.5-7.7); ABS Nucleated RBC 0 10^3/ul; Eosinophil % 0.2 % (0-6); Hematocrit 35 % (35-47); Hemoglobin 11.6 g/dl (12.0-16.0); Lymphocyte % 10.6 % (25-47); Mean Corpuscular HGB Conc 34 g/dl (31-36); Mean Corpuscular Hemoglobin 33 pg (27-31); Mean Corpuscular Volume 99 fL (80-97); Mean Platelet Volume 8.1 um3 (7.4-10.4); Nucleated Red Blood Cells % 0; Platelet Count 292 10^3/ul (150-450); Red Blood Count 3.49 10^6/ul (4.00-5.40); Red Cell Distribution Width 13 % (10.5-15); White Blood Count 15.8 10^3/ul (3.5-10.8)
--- NOTE | 2018-03-14 07:52 | PN ---
Progress Note - Progress Note Date of Service: 03/14/18 Note: S/P chest tube for hydropneumothorax Has pain at site, no dyspnea CT with no air leak. Total drainage 1000ml. Breathing easy and unlabored Check CXR this AM. If lung well expanded, D/C chest tube Dicharge per medicine Path pending
[2018-03-14 08:02] LABS: EGFR Non-African American 104.7 (>60)
[2018-03-14] MEDS: Cyanocobalamin TAB* 500 MCG PO SCH (08:26)
[2018-03-14] MEDS: Atorvastatin* 10 MG TAB PO SCH (08:27)
[2018-03-14] MEDS: Metoprolol Tartrate TAB* 25 MG PO SCH ×2 (08:27→17:24)
[2018-03-14] MEDS: predniSONE TAB* 20 MG PO SCH (08:28)
[2018-03-14] MEDS: Gabapentin CAP(*) 100 MG PO SCH (08:29)
[2018-03-14] MEDS: CMCS Pantoprazole TAB (NF) 40 MG TAB PO SCH (08:29)
[2018-03-14] MEDS: DOXYcycline IV* 100 MG in NS 0.9% 250 ML* 250 ML IVPB SCH ×2 (10:12→22:39)
[2018-03-14] MEDS ORDERED: Senna TAB PO PRN (11:51)
[2018-03-14] MEDS ORDERED: Docusate CAP* 100 MG PO ONE (11:52)
--- NOTE | 2018-03-14 11:55 | PN ---
Subjective Date of Service: 03/14/18 Interval History: Patient reports she didnt sleep very well last night d/t pain and discomfort at the CT site. She reports SOB but states it is "no worse than when I came in". Denies fever or chills. Reports good appetite. No N/v. Reports feeling constipated Objective Active Medications: Albuterol (Ventolin 2.5 Mg/3 Ml Neb.Karen*) 2.5 mg INH Q2H PRN PRN Reason: SOB/WHEEZING Albuterol/Ipratropium (Duoneb (Albuterol 2.5 Mg/Ipratropium 0.5 Mg)) 1 neb INH [id number] AWAKE [facility] Last Admin: 03/14/18 07:12 Dose: 1 neb Atorvastatin Calcium (Lipitor*) 10 mg PO DAILY [facility] Last Admin: 03/14/18 08:27 Dose: 10 mg Cyanocobalamin (Vitamin B12 Tab*) 1,000 mcg PO DAILY WITH MEAL STEPHANIE Last Admin: 03/14/18 08:26 Dose: 1,000 mcg Gabapentin (Neurontin Cap(*)) 100 mg PO DAILY [facility] Last Admin: 03/14/18 08:29 Dose: Not Given Heparin Sodium (Porcine) (Heparin Vial(*)) 5,000 units SUBCUT Q8HR [facility] Last Admin: 03/14/18 06:00 Dose: 5,000 units Doxycycline Hyclate 100 mg/ (Sodium Chloride) 250 mls @ 250 mls/hr IVPB Q12H [facility] Last Admin: 03/14/18 10:12 Dose: 250 mls/hr Metoprolol Tartrate (Lopressor Tab*) 12.5 mg PO BID WITH MEALS STEPHANIE Last Admin: 03/14/18 08:27 Dose: 12.5 mg Mometasone Furoate/Formoterol Fumar (Dulera 200/5 Mdi*) 2 puff INH BID STEPHANIE Last Admin: 03/14/18 07:12 Dose: 2 puff Ondansetron HCl (Zofran Inj*) 4 mg IV Q6H PRN PRN Reason: NAUSEA Oxycodone/Acetaminophen (Percocet 5/325 Tab*) 1 tab PO Q4H PRN PRN Reason: PAIN Last Admin: 03/14/18 10:14 Dose: 1 tab Pantoprazole Sodium (Protonix Tab (Nf)) 40 mg PO DAILY [facility] Last Admin: 03/14/18 08:29 Dose: 40 mg Prednisone (Deltasone Tab*) 60 mg PO DAILY [facility] Last Admin: 03/14/18 08:28 Dose: 60 mg Senna (Senokot Tab*) 1 tab PO BEDTIME PRN PRN Reason: CONSTIPATION Vital Signs - 8 hr 03/14/18 03/14/18 03/14/18 05:59 07:17 07:28 Temperature 97.5 F Pulse Rate 78 79 Respiratory 18 16 16 Rate Blood Pressure 115/68 (mmHg) O2 Sat by Pulse 98 97 Oximetry 03/14/18 03/14/18 03/14/18 07:30 08:26 10:14 Temperature Pulse Rate Respiratory 20 20 22 Rate Blood Pressure (mmHg) O2 Sat by Pulse Oximetry Oxygen Devices in Use Now: Nasal Cannula Appearance: 77 yo female sittig up in bed in NAD, A+O x3 Eyes: No Scleral Icterus, PERRLA Ears/Nose/Mouth/Throat: NL Teeth, Lips, Gums, Mucous Membranes Moist Neck: NL Appearance and Movements; NL JVP, Trachea Midline Respiratory: Symmetrical Chest Expansion and Respiratory Effort, Clear to Auscultation Cardiovascular: NL Sounds; No Murmurs; No JVD, RRR, No Edema Abdominal: NL Sounds; No Tenderness; No Distention Extremities: No Edema, No Clubbing, Cyanosis Skin: No Rash or Ulcers, No Nodules or Sclerosis Neurological: Alert and Oriented x 3, NL Sensation, NL Muscle Strength and Tone Lines/Tubes/Other Access: Clean, Dry and Intact Peripheral IV Nutrition: Taking PO's Result Diagrams: 03/14/18 07:29 03/14/18 07:29 Additional Lab and Data: Lab Results 03/12/18 03/12/18 03/12/18 Range/Units 17:36 17:36 17:36 WBC 11.1 H (3.5-10.8) 10^3/ul RBC 4.03 (4.00-5.40) 10^6/ul Hgb 13.5 (12.0-16.0) g/dl Hct 40 (35-47) % MCV 100 H (80-97) fL MCH 34 H (27-31) pg MCHC 34 (31-36) g/dl RDW 13 (10.5-15) % Plt Count 322 (150-450) 10^3/ul MPV 7.6 (7.4-10.4) um3 Neut % (Auto) 73.8 (38-83) % Lymph % (Auto) 12.9 L (25-47) % [place] % (Auto) 11.4 H (0-7) % Eos % (Auto) 1.3 (0-6) % Baso % (Auto) 0.6 (0-2) % Absolute Neuts (auto) 8.2 H (1.5-7.7) 10^3/ul Absolute Lymphs (auto) 1.4 (1.0-4.8) 10^3/ul Absolute Monos (auto) 1.3 H (0-0.8) 10^3/ul Absolute Eos (auto) 0.1 (0-0.6) 10^3/ul Absolute Basos (auto) 0.1 (0-0.2) 10^3/ul Absolute Nucleated RBC 0 10^3/ul Nucleated RBC % 0.1 D-Dimer, Quantitative > 1050 H (Less Than 230) ng/mL Sodium 137 (135-145) mmol/L Potassium 3.4 L (3.5-5.0) mmol/L Chloride 98 L (101-111) mmol/L Carbon Dioxide 30 (22-32) mmol/L Anion Gap 9 (2-11) mmol/L BUN 9 (6-24) mg/dL Creatinine 0.59 (0.51-0.95) mg/dL Est GFR ( Amer) 119.3 (>60) Est GFR (Non-Af Amer) 98.6 (>60) BUN/Creatinine Ratio 15.3 (8-20) Glucose 99 (70-100) mg/dL Calcium 9.5 (8.6-10.3) mg/dL Total Bilirubin 0.50 (0.2-1.0) mg/dL AST 15 (13-39) U/L ALT 7 (7-52) U/L Alkaline Phosphatase 75 (34-104) U/L Troponin I 0.00 (<0.04) ng/mL Total Protein 6.6 (6.4-8.9) g/dL Albumin 3.4 (3.2-5.2) g/dL Globulin 3.2 (2-4) g/dL Albumin/Globulin Ratio 1.1 (1-3) Microbiology and Other Data: Microbiology 03/13/18 14:33 Gram Stain - Final Pleural Fluid Body Fluid Culture - Preliminary No Growth Day 1 03/12/18 17:35 Aerobic Blood Culture - Preliminary Blood Venous No Growth Day 1 Anaerobic Blood Culture - Preliminary No Growth Day 1 03/12/18 17:41 Aerobic Blood Culture - Preliminary Blood Venous No Growth Day 1 Anaerobic Blood Culture - Preliminary No Growth Day 1 Assess/Plan/Problems-Billing Assessment: Mr. Aguayo is a 77 yo female with a PMH of breast ca, [place] 2011 with stent placement, HTN, HLD who presented on 03/12 with c/o SOB found to have a pleural effusion and possible mass. - Patient Problems (1) SOB (shortness of breath) Comment: - Questionable pneumonia vs mass with pleural effusion with COPD exacerbation component - CTA showing " no PE, airspace disease of the right lung base, appears mass like could be inflammatory vs neoplastic. Mild right infrahilar adenopathy. Emphysema". - Surgery attempted Thorancentesis 03/13 complicated by a pneumothorax now s/p CT - drained approx 1000mls overnight - no noted air leak. Surgery to repeat chest xray. - ASA/Plavix are being held- - Appreciate Oncology consult Dr. Love saw 03/13 Following along. Recommends MRI brain w/wo for report of new HAs which is scheduled for this evening (2) HTN (hypertension) Comment: - continue metoprolol (3) Hx of coronary artery disease Comment: - [place] with stent placement on 2011 with stent placement - ASA/Plavix on hold. - Per 2011 cath report recommended Plavix for 1 year, will DC plavix, and at discharge the patient can resume her ASA (4) COPD (chronic obstructive pulmonary disease) Comment: - with exacerbation - improving - continue prednisone with taper - continue Doxy - blood cx and sputum cx pending - will require neb machine to be set-up for home use at discharge (5) HLD (hyperlipidemia) Comment: - statin (6) Full code status Comment: HSQ (7) DVT prophylaxis Status and Disposition: Inpatient. Home when medically stable.
--- NOTE | 2018-03-14 13:10 | RAD ---
INDICATION: Follow-up pneumothorax COMPARISON: Most recent comparison chest x-ray March 13, 2018 TECHNIQUE: PA and lateral views of the chest were obtained. FINDINGS: The heart and mediastinum are normal in size and contour. There is a small right-sided pneumothorax with the apex along measuring approximately 1.5 cm from the apex of the right chest wall, slightly larger when compared to the previous chest x-ray. A right-sided chest tube is in place with the tip terminating approximately at the level of the 8/9 posterior rib interspace. Linear density at the right lung base is most consistent with atelectasis in this clinical setting. Visualized bones are normal for the patient's age. There is no radiographic evidence of free air beneath the diaphragm IMPRESSION: SMALL INTERNAL THERE IS BEEN SMALL INTERVAL INCREASE IN THE SIZE OF THE RIGHT-SIDED PNEUMOTHORAX RELATIVE TO THE PREVIOUS DAYS CHEST X-RAY.
[2018-03-14] MEDS ORDERED: Gadoteridol* (CONTRAST) 279.3 MG/ML 10 ML IV ONE (20:44)
--- NOTE | 2018-03-14 21:45 | RAD ---
Indication: New onset headache for 2 weeks. Difficulty sleeping and fatigue. History of breast carcinoma. Comparison: No relevant prior exams available on the [facility] PACS for comparison. Technique: [place] 1.5 Kristy [id number] with GEM suite. MRI brain without and with contrast. 8 mL ProHance administered IV. Report: Diffusion series is negative for acute or subacute ischemia. Susceptibility series is negative for stigmata of hemosiderin deposition to indicate previous hemorrhage. Mild prominence of the cerebral sulci reflecting involutional change. Unremarkable ventricles and basal cisterns. Mildly prominent perivascular spaces at the basal ganglia. Moderate burden of nonspecific T2 FLAIR hyperintensities within the white matter of the cerebral hemispheres without mass effect or enhancement most suggestive of chronic small vessel ischemic disease in this age group. No suspicious intra-axial or extra-axial lesions evident to raise concern for metastatic disease. Preserved major intracranial flow-voids. 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 No evidence for intra or extra-axial hemorrhage. Mild mucosal thickening at the frontal sinuses. No paranasal sinus fluid levels evident. No suspicious calvarial or skull base lesions evident. IMPRESSION: #. No evidence for brain metastasis. #. No evidence for acute or subacute ischemia. #. Stigmata of probable chronic small vessel ischemic disease. #. 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 No evidence for intra or extra-axial hemorrhage.
[2018-03-15] MEDS: Albuterol/Ipratropium NEB.SOL* Albuterol 2.5 MG/Ipratropium 0.5 MG 3 ML INH SCH ×2 (01:38→07:54)
[2018-03-15] MEDS: oxyCODONE/Acetamin 5/325 MG* TAB PO PRN ×4 (02:52→18:45)
[2018-03-15] MEDS: Heparin VIAL(*) 5000 UNITS/ML VIAL (FIVE THOUSAND) SUBCUT SCH ×3 (05:54→21:46)
[2018-03-15] MEDS: Mometasone/Formoter 200/5 MDI INH SCH ×2 (07:57→20:49)
[2018-03-15 08:25] LABS: ABS Basophils 0 10^3/ul (0-0.2); ABS Eosinophils 0.1 10^3/ul (0-0.6); ABS Lymphocytes 1.4 10^3/ul (1.0-4.8); ABS Monocytes 1.3 10^3/ul (0-0.8); ABS Neutrophils 8.9 10^3/ul (1.5-7.7); ABS Nucleated RBC 0 10^3/ul; Eosinophil % 0.8 % (0-6); Hematocrit 34 % (35-47); Hemoglobin 11.5 g/dl (12.0-16.0); Lymphocyte % 12.3 % (25-47); Mean Corpuscular HGB Conc 34 g/dl (31-36); Mean Corpuscular Hemoglobin 33 pg (27-31); Mean Corpuscular Volume 99 fL (80-97); Mean Platelet Volume 8.2 um3 (7.4-10.4); Nucleated Red Blood Cells % 0; Platelet Count 300 10^3/ul (150-450); Red Blood Count 3.46 10^6/ul (4.00-5.40); Red Cell Distribution Width 14 % (10.5-15); White Blood Count 11.7 10^3/ul (3.5-10.8)
[2018-03-15 08:38] LABS: EGFR Non-African American 119.3 (>60)
[2018-03-15] MEDS ORDERED: Magnesium Sulf 4 GM/100 ML IV* 4,000 MG/100 ML BAG IVPB ONE (09:08)
--- NOTE | 2018-03-15 09:16 | RAD ---
HISTORY: followup R pneumothorax COMPARISONS: March 14, 2015 VIEWS: 4: Frontal dual-energy and lateral views of the chest. FINDINGS: CARDIOMEDIASTINAL SILHOUETTE: The cardiomediastinal silhouette is normal. LYNNETTE: The lynnette are normal. PLEURA: There is a small pneumothorax of the right costophrenic angle. This has decreased in size compared to the previous examination. LUNG PARENCHYMA: There is hyperinflation. ABDOMEN: The upper abdomen is clear. There is no subphrenic gas. BONES AND SOFT TISSUES: No bone or soft tissue abnormalities are noted. OTHER: A right-sided chest tube is noted. IMPRESSION: SMALL RESIDUAL PNEUMOTHORAX, PREDOMINANTLY ALONG THE RIGHT COSTOPHRENIC ANGLE, DECREASED FROM THE PREVIOUS EXAMINATION.
[2018-03-15] MEDS: predniSONE TAB* 20 MG PO SCH (09:40)
[2018-03-15] MEDS: Atorvastatin* 10 MG TAB PO SCH (09:40)
[2018-03-15] MEDS: Metoprolol Tartrate TAB* 25 MG PO SCH ×2 (09:41→18:39)
[2018-03-15] MEDS: Gabapentin CAP(*) 100 MG PO SCH (09:42)
[2018-03-15] MEDS: CMCS Pantoprazole TAB (NF) 40 MG TAB PO SCH (09:43)
[2018-03-15] MEDS: Cyanocobalamin TAB* 500 MCG PO SCH (09:47)
[2018-03-15] MEDS: DOXYcycline IV* 100 MG in NS 0.9% 250 ML* 250 ML IVPB SCH (13:25)
--- NOTE | 2018-03-15 14:31 | PN ---
Subjective Date of Service: 03/15/18 Interval History: Patient's CT just recently removed, she reports she feels "good" stating she feels better today compared to yesterday. She denies SOB or CP. Denies fever/ chills. Reports apptite is good. No N/V/D. Feels steady on her feet. Feels that she could go home tomorrow if she continues to feel well. Objective Active Medications: Albuterol (Ventolin 2.5 Mg/3 Ml Neb.Karen*) 2.5 mg INH Q2H PRN PRN Reason: SOB/WHEEZING Atorvastatin Calcium (Lipitor*) 10 mg PO DAILY [facility] Last Admin: 03/15/18 09:40 Dose: 10 mg Cyanocobalamin (Vitamin B12 Tab*) 1,000 mcg PO DAILY WITH MEAL [facility] Last Admin: 03/15/18 09:47 Dose: 1,000 mcg Gabapentin (Neurontin Cap(*)) 100 mg PO DAILY [facility] Last Admin: 03/15/18 09:42 Dose: Not Given Heparin Sodium (Porcine) (Heparin Vial(*)) 5,000 units SUBCUT Q8HR [facility] Last Admin: 03/15/18 13:24 Dose: 5,000 units Heparin Sodium (Porcine) (Heparin Flush Picc/Ml/Cvc(*)) 1 - 3 ml FLUSH 0600, 1800 [facility]; Protocol Last Admin: 03/15/18 05:54 Dose: 1 ml Doxycycline Hyclate 100 mg/ (Sodium Chloride) 250 mls @ 250 mls/hr IVPB Q12H [facility] Last Admin: 03/15/18 13:25 Dose: 250 mls/hr Metoprolol Tartrate (Lopressor Tab*) 12.5 mg PO BID WITH MEALS [facility] Last Admin: 03/15/18 09:41 Dose: 12.5 mg Mometasone Furoate/Formoterol Fumar (Dulera 200/5 Mdi*) 2 puff INH BID [facility] Last Admin: 03/15/18 07:57 Dose: 2 puff Ondansetron HCl (Zofran Inj*) 4 mg IV Q6H PRN PRN Reason: NAUSEA Oxycodone/Acetaminophen (Percocet 5/325 Tab*) 1 tab PO Q4H PRN PRN Reason: PAIN Last Admin: 03/15/18 13:58 Dose: 1 tab Pantoprazole Sodium (Protonix Tab (Nf)) 40 mg PO DAILY [facility] Last Admin: 03/15/18 09:43 Dose: 40 mg Prednisone (Deltasone Tab*) 40 mg PO DAILY [facility] Last Admin: 03/15/18 09:40 Dose: 40 mg Senna (Senokot Tab*) 1 tab PO BEDTIME PRN PRN Reason: CONSTIPATION Vital Signs - 8 hr 03/15/18 03/15/18 03/15/18 07:27 08:00 08:03 Temperature 97.5 F Pulse Rate 76 73 Respiratory 20 16 16 Rate Blood Pressure 134/76 (mmHg) O2 Sat by Pulse 97 97 Oximetry 03/15/18 03/15/18 03/15/18 09:43 11:14 11:43 Temperature 97.7 F Pulse Rate 71 Respiratory 16 16 16 Rate Blood Pressure 108/62 (mmHg) O2 Sat by Pulse 97 Oximetry 03/15/18 13:58 Temperature Pulse Rate Respiratory 18 Rate Blood Pressure (mmHg) O2 Sat by Pulse Oximetry Oxygen Devices in Use Now: Nasal Cannula Appearance: thin eldelry female sitting up in bed in NAD. A+O x3 Eyes: No Scleral Icterus, PERRLA Ears/Nose/Mouth/Throat: Mucous Membranes Moist Respiratory: Symmetrical Chest Expansion and Respiratory Effort, Clear to Auscultation, - - right CD+I dressing to lateral ribs Cardiovascular: NL Sounds; No Murmurs; No JVD, RRR, No Edema Abdominal: NL Sounds; No Tenderness; No Distention Extremities: No Edema, No Clubbing, Cyanosis Skin: No Rash or Ulcers, No Nodules or Sclerosis Neurological: Alert and Oriented x 3, NL Sensation, NL Gait, NL Muscle Strength and Tone Lines/Tubes/Other Access: Clean, Dry and Intact Peripheral IV Nutrition: Taking PO's Result Diagrams: 03/15/18 07:30 03/15/18 07:30 Additional Lab and Data: Lab Results 03/12/18 03/12/18 03/12/18 Range/Units 17:36 17:36 17:36 WBC 11.1 H (3.5-10.8) 10^3/ul RBC 4.03 (4.00-5.40) 10^6/ul Hgb 13.5 (12.0-16.0) g/dl Hct 40 (35-47) % MCV 100 H (80-97) fL MCH 34 H (27-31) pg MCHC 34 (31-36) g/dl RDW 13 (10.5-15) % Plt Count 322 (150-450) 10^3/ul MPV 7.6 (7.4-10.4) um3 Neut % (Auto) 73.8 (38-83) % Lymph % (Auto) 12.9 L (25-47) % [place] % (Auto) 11.4 H (0-7) % Eos % (Auto) 1.3 (0-6) % Baso % (Auto) 0.6 (0-2) % Absolute Neuts (auto) 8.2 H (1.5-7.7) 10^3/ul Absolute Lymphs (auto) 1.4 (1.0-4.8) 10^3/ul Absolute Monos (auto) 1.3 H (0-0.8) 10^3/ul Absolute Eos (auto) 0.1 (0-0.6) 10^3/ul Absolute Basos (auto) 0.1 (0-0.2) 10^3/ul Absolute Nucleated RBC 0 10^3/ul Nucleated RBC % 0.1 D-Dimer, Quantitative > 1050 H (Less Than 230) ng/mL Sodium 137 (135-145) mmol/L Potassium 3.4 L (3.5-5.0) mmol/L Chloride 98 L (101-111) mmol/L Carbon Dioxide 30 (22-32) mmol/L Anion Gap 9 (2-11) mmol/L BUN 9 (6-24) mg/dL Creatinine 0.59 (0.51-0.95) mg/dL Est GFR ( Amer) 119.3 (>60) Est GFR (Non-Af Amer) 98.6 (>60) BUN/Creatinine Ratio 15.3 (8-20) Glucose 99 (70-100) mg/dL Calcium 9.5 (8.6-10.3) mg/dL Total Bilirubin 0.50 (0.2-1.0) mg/dL AST 15 (13-39) U/L ALT 7 (7-52) U/L Alkaline Phosphatase 75 (34-104) U/L Troponin I 0.00 (<0.04) ng/mL Total Protein 6.6 (6.4-8.9) g/dL Albumin 3.4 (3.2-5.2) g/dL Globulin 3.2 (2-4) g/dL Albumin/Globulin Ratio 1.1 (1-3) Microbiology and Other Data: Microbiology 03/13/18 14:33 Gram Stain - Final Pleural Fluid Body Fluid Culture - Preliminary No Growth Day 1 03/12/18 17:35 Aerobic Blood Culture - Preliminary Blood Venous No Growth Day 1 Anaerobic Blood Culture - Preliminary No Growth Day 1 03/12/18 17:41 Aerobic Blood Culture - Preliminary Blood Venous No Growth Day 1 Anaerobic Blood Culture - Preliminary No Growth Day 1 Assess/Plan/Problems-Billing Assessment: Mr. Aguayo is a 77 yo female with a PMH of breast ca, CT 2011 with stent placement, HTN, HLD who presented on 03/12 with c/o SOB found to have a pleural effusion and possible mass. - Patient Problems (1) SOB (shortness of breath) Comment: - Questionable pneumonia vs mass with pleural effusion with COPD exacerbation component - much improvement since admission - CTA showing " no PE, airspace disease of the right lung base, appears mass like could be inflammatory vs neoplastic. Mild right infrahilar adenopathy. Emphysema". - Surgery attempted Thorancentesis 03/13 complicated by a pneumothorax in which a CT was placed for 2 days, removed today. Pt doing well - ASA/Plavix are being held- - Appreciate Oncology consult Dr. Love saw 03/13 Following along. MRI brain showing no masses (2) Electrolyte abnormality Comment: - magnesium critically low 0.8 - 4 gm magnesium given - recheck in am (3) HTN (hypertension) Comment: - continue metoprolol (4) Hx of coronary artery disease Comment: - CT with stent placement on 2011 with stent placement - ASA/Plavix on hold. - Per 2012 cath report recommended Plavix for 1 year, will DC plavix, and at discharge the patient can resume her ASA (5) COPD (chronic obstructive pulmonary disease) Comment: - with exacerbation - improving - continue prednisone with taper - continue Doxy - switch to PO - blood cx and sputum cx pending - will require neb machine to be set-up for home use at discharge (6) HLD (hyperlipidemia) Comment: - statin (7) Full code status Comment: HSQ (8) DVT prophylaxis Status and Disposition: Inpatient. Home when medically stable.
--- NOTE | 2018-03-15 15:18 | PN ---
Progress Note - Progress Note Date of Service: 03/15/18 SOAP: Subjective:S/P CHEST TUBE FOR HYDROPNEUMOTHORAX;pain at chest tube site,no dyspnea [] Objective:afeb,VSS;lungs:good respiratory effort;chest tube no air leak,total drainage 1150ml CXR today small right apical pneumothorax,improved when compared to yesterday [] Assessment:no air leak,CXR reviewed by Dr Calero [] Plan:Chest tube removed with ease,occlusive xeroform dressing and 4x4s applied discharge per Hospitalist service likely tomorrow;no surgical followup needed at this time []
[2018-03-15] MEDS ORDERED: Polyethylene Glycol 3350* 17 GM PACKET PO PRN (20:52)
[2018-03-15] MEDS: DOXYcycline CAP(*) 100 MG PO SCH (21:45)
[2018-03-16] MEDS: oxyCODONE/Acetamin 5/325 MG* TAB PO PRN ×3 (02:13→17:42)
[2018-03-16] MEDS: Heparin VIAL(*) 5000 UNITS/ML VIAL (FIVE THOUSAND) SUBCUT SCH ×2 (05:21→14:52)
[2018-03-16 05:40] LABS: ABS Basophils 0 10^3/ul (0-0.2); ABS Eosinophils 0.2 10^3/ul (0-0.6); ABS Lymphocytes 1.4 10^3/ul (1.0-4.8); ABS Monocytes 1.1 10^3/ul (0-0.8); ABS Nucleated RBC 0 10^3/ul; Eosinophil % 1.5 % (0-6); Hematocrit 36 % (35-47); Hemoglobin 11.8 g/dl (12.0-16.0); Lymphocyte % 12.8 % (25-47); Mean Corpuscular HGB Conc 33 g/dl (31-36); Mean Corpuscular Hemoglobin 33 pg (27-31); Mean Corpuscular Volume 100 fL (80-97); Nucleated Red Blood Cells % 0; Platelet Count 301 10^3/ul (150-450); Red Blood Count 3.56 10^6/ul (4.00-5.40); Red Cell Distribution Width 14 % (10.5-15); White Blood Count 10.7 10^3/ul (3.5-10.8)
[2018-03-16 05:52] LABS: EGFR Non-African American 119.3 (>60)
[2018-03-16] MEDS: Mometasone/Formoter 200/5 MDI INH SCH ×2 (07:29→21:22)
[2018-03-16] MEDS: Cyanocobalamin TAB* 500 MCG PO SCH (08:58)
[2018-03-16] MEDS: Metoprolol Tartrate TAB* 25 MG PO SCH ×2 (08:58→17:42)
[2018-03-16] MEDS: CMCS Pantoprazole TAB (NF) 40 MG TAB PO SCH (08:58)
[2018-03-16] MEDS: Atorvastatin* 10 MG TAB PO SCH (08:58)
[2018-03-16] MEDS: DOXYcycline CAP(*) 100 MG PO SCH (08:58)
[2018-03-16] MEDS: predniSONE TAB* 20 MG PO SCH (08:59)
[2018-03-16] MEDS: Gabapentin CAP(*) 100 MG PO SCH (09:03)
[2018-03-16] MEDS ORDERED: Iohexol 300* (CONTRAST) 10 ML SDV IV ONE (12:31)
--- NOTE | 2018-03-16 13:53 | PN ---
Subjective Date of Service: 03/16/18 Interval History: Pt is doing well and feels that she could go home. She is worried about her son doing the dressing change and would like home care services, she also has some friends who could help out in between. She reports some drained from CT site. No blood noted. Denies SOB. Overall feels good. No cough. No CP. No fevers or chills. Objective Active Medications: Albuterol (Ventolin 2.5 Mg/3 Ml Neb.Karen*) 2.5 mg INH Q2H PRN PRN Reason: SOB/WHEEZING Atorvastatin Calcium (Lipitor*) 10 mg PO DAILY [facility] Last Admin: 03/16/18 08:58 Dose: 10 mg Cyanocobalamin (Vitamin B12 Tab*) 1,000 mcg PO DAILY WITH MEAL [facility] Last Admin: 03/16/18 08:58 Dose: 1,000 mcg Doxycycline Hyclate (Vibramycin Cap(*)) 100 mg PO BID [facility] Last Admin: 03/16/18 08:58 Dose: 100 mg Gabapentin (Neurontin Cap(*)) 100 mg PO DAILY [facility] Last Admin: 03/16/18 09:03 Dose: Not Given Heparin Sodium (Porcine) (Heparin Vial(*)) 5,000 units SUBCUT Q8HR [facility] Last Admin: 03/16/18 05:21 Dose: 5,000 units Heparin Sodium (Porcine) (Heparin Flush Picc/Ml/Cvc(*)) 1 - 3 ml FLUSH 0600, 1800 [facility]; Protocol Last Admin: 03/16/18 05:26 Dose: 1 ml Metoprolol Tartrate (Lopressor Tab*) 12.5 mg PO BID WITH MEALS [facility] Last Admin: 03/16/18 08:58 Dose: 12.5 mg Mometasone Furoate/Formoterol Fumar (Dulera 200/5 Mdi*) 2 puff INH BID [facility] Last Admin: 03/16/18 07:29 Dose: 2 puff Ondansetron HCl (Zofran Inj*) 4 mg IV Q6H PRN PRN Reason: NAUSEA Oxycodone/Acetaminophen (Percocet 5/325 Tab*) 1 tab PO Q4H PRN PRN Reason: PAIN Last Admin: 03/16/18 09:11 Dose: 1 tab Pantoprazole Sodium (Protonix Tab (Nf)) 40 mg PO DAILY [facility] Last Admin: 03/16/18 08:58 Dose: 40 mg Polyethylene Glycol/Electrolytes (Miralax*) 17 gm PO DAILY PRN PRN Reason: CONSTIPATION Last Admin: 03/15/18 21:44 Dose: 17 gm Prednisone (Deltasone Tab*) 40 mg PO DAILY [facility] Last Admin: 03/16/18 08:59 Dose: 40 mg Senna (Senokot Tab*) 1 tab PO BEDTIME PRN PRN Reason: CONSTIPATION Vital Signs - 8 hr 03/16/18 03/16/18 03/16/18 07:24 08:00 09:11 Temperature 98.1 F Pulse Rate 68 Respiratory 16 16 16 Rate Blood Pressure 138/80 (mmHg) O2 Sat by Pulse 96 Oximetry 03/16/18 03/16/18 03/16/18 10:04 11:10 11:23 Temperature 97.3 F Pulse Rate 67 72 Respiratory 12 16 Rate Blood Pressure 123/50 (mmHg) O2 Sat by Pulse 97 85 96 Oximetry Oxygen Devices in Use Now: Nasal Cannula Appearance: thin 77 yo female sitting up in the bed in NAD+Ox3 Ears/Nose/Mouth/Throat: NL Teeth, Lips, Gums, Mucous Membranes Moist Respiratory: Clear to Auscultation, - - right later chest wall dressing CD+I Cardiovascular: NL Sounds; No Murmurs; No JVD, RRR, No Edema Abdominal: NL Sounds; No Tenderness; No Distention Extremities: No Edema, No Clubbing, Cyanosis Skin: No Rash or Ulcers, No Nodules or Sclerosis Neurological: Alert and Oriented x 3, NL Sensation, NL Muscle Strength and Tone Lines/Tubes/Other Access: Clean, Dry and Intact Peripheral IV Nutrition: Taking PO's Result Diagrams: 03/16/18 05:30 03/16/18 05:30 Additional Lab and Data: Lab Results 03/12/18 03/12/18 03/12/18 Range/Units 17:36 17:36 17:36 WBC 11.1 H (3.5-10.8) 10^3/ul RBC 4.03 (4.00-5.40) 10^6/ul Hgb 13.5 (12.0-16.0) g/dl Hct 40 (35-47) % MCV 100 H (80-97) fL MCH 34 H (27-31) pg MCHC 34 (31-36) g/dl RDW 13 (10.5-15) % Plt Count 322 (150-450) 10^3/ul MPV 7.6 (7.4-10.4) um3 Neut % (Auto) 73.8 (38-83) % Lymph % (Auto) 12.9 L (25-47) % [place] % (Auto) 11.4 H (0-7) % Eos % (Auto) 1.3 (0-6) % Baso % (Auto) 0.6 (0-2) % Absolute Neuts (auto) 8.2 H (1.5-7.7) 10^3/ul Absolute Lymphs (auto) 1.4 (1.0-4.8) 10^3/ul Absolute Monos (auto) 1.3 H (0-0.8) 10^3/ul Absolute Eos (auto) 0.1 (0-0.6) 10^3/ul Absolute Basos (auto) 0.1 (0-0.2) 10^3/ul Absolute Nucleated RBC 0 10^3/ul Nucleated RBC % 0.1 D-Dimer, Quantitative > 1050 H (Less Than 230) ng/mL Sodium 137 (135-145) mmol/L Potassium 3.4 L (3.5-5.0) mmol/L Chloride 98 L (101-111) mmol/L Carbon Dioxide 30 (22-32) mmol/L Anion Gap 9 (2-11) mmol/L BUN 9 (6-24) mg/dL Creatinine 0.59 (0.51-0.95) mg/dL Est GFR ( Amer) 119.3 (>60) Est GFR (Non-Af Amer) 98.6 (>60) BUN/Creatinine Ratio 15.3 (8-20) Glucose 99 (70-100) mg/dL Calcium 9.5 (8.6-10.3) mg/dL Total Bilirubin 0.50 (0.2-1.0) mg/dL AST 15 (13-39) U/L ALT 7 (7-52) U/L Alkaline Phosphatase 75 (34-104) U/L Troponin I 0.00 (<0.04) ng/mL Total Protein 6.6 (6.4-8.9) g/dL Albumin 3.4 (3.2-5.2) g/dL Globulin 3.2 (2-4) g/dL Albumin/Globulin Ratio 1.1 (1-3) Microbiology and Other Data: Microbiology 03/13/18 14:33 Gram Stain - Final Pleural Fluid Body Fluid Culture - Preliminary No Growth Day 1 03/12/18 17:35 Aerobic Blood Culture - Preliminary Blood Venous No Growth Day 1 Anaerobic Blood Culture - Preliminary No Growth Day 1 03/12/18 17:41 Aerobic Blood Culture - Preliminary Blood Venous No Growth Day 1 Anaerobic Blood Culture - Preliminary No Growth Day 1 Assess/Plan/Problems-Billing Assessment: Mr. Aguayo is a 77 yo female with a PMH of breast ca, [place] 2011 with stent placement, HTN, HLD who presented on 03/12 with c/o SOB found to have a pleural effusion and possible mass. - Patient Problems (1) SOB (shortness of breath) Comment: - Pt doing well. - Questionable pneumonia vs mass with pleural effusion with COPD exacerbation component - much improvement since admission - CTA showing " no PE, airspace disease of the right lung base, appears mass like could be inflammatory vs neoplastic. Mild right infrahilar adenopathy. Emphysema". - Surgery attempted Thorancentesis 03/13 complicated by a pneumothorax in which a CT was placed for 2 days, removed today. Approx 1000 mls was drained from right lung effusion. Pathology from pleural effusion was negative for malignancy. - Appreciate Oncology consult Dr. Love;Following along. Plan to obtain CT chest to re-evaluate - if there is a noted mass she will require outpt biopsy. She is to follow up with Dr. Oliveira. - continuing to require oxygen therapy with O2 sat at rest 85% - will require oxygen going home. - ASA/Plavix are being held- -MRI brain showing no masses (2) Electrolyte abnormality Comment: - magnesium was critically low 0.8 - 4 gm magnesium given - now resolved (3) HTN (hypertension) Comment: - continue metoprolol (4) Hx of coronary artery disease Comment: - [place] with stent placement on 2011 with stent placement - ASA/Plavix on hold. - Per 2011 cath report recommended Plavix for 1 year, will DC plavix, and at discharge the patient can resume her ASA (5) COPD (chronic obstructive pulmonary disease) Comment: - with exacerbation - improving - finished 5 day prednisone course - continue Doxy - switch to PO - blood cx and sputum cx pending - will require neb machine to be set-up for home use at discharge (6) HLD (hyperlipidemia) Comment: - statin (7) Full code status Comment: HSQ (8) DVT prophylaxis Status and Disposition: Inpatient. Medically stable for DC to home. Awaiting delivering of oxygen to home.
--- NOTE | 2018-03-16 15:05 | RAD ---
HISTORY: possible lung mass COMPARISONS: CT dated March 12, 2013, chest x-ray dated March 15, 2018 TECHNIQUE: Multiple contiguous axial CT scans of the chest were obtained with intravenous contrast. Coronal and sagittal multiplanar reformations are also submitted for review. FINDINGS: NECK AND THYROID: The lower neck and thyroid are unremarkable. CHEST WALL: There is no lower cervical, axillary, or supraclavicular lymphadenopathy by size criteria. HEART AND PERICARDIUM: The heart is unremarkable. AORTA AND PULMONARY VASCULATURE: There is calcification of the thoracic aorta. The pulmonary vasculature is unremarkable. There is an aberrant right subclavian artery. MEDIASTINUM: There is no mediastinal lymphadenopathy by size criteria. LYNNETTE: There is no hilar lymphadenopathy by size criteria. AIRWAY AND ESOPHAGUS: The airway is unremarkable, without endobronchial filling defect. The esophagus is grossly normal. LUNG PARENCHYMA: There is biapical centrilobular emphysematous change. There has been improved aeration of the right lower lobe compared to the previous examination. On axial image 34, there is a 3.2 x 1.4 cm focus of masslike opacification along the tracheoesophageal recess on the right. PLEURA: There is minimal lobular pleural thickening of the right lung base. There is a small residual right-sided pneumothorax. UPPER ABDOMEN: The upper abdomen is unremarkable. BONES AND SOFT TISSUES: Again noted is chronic appearing compression deformity of L1. There is a scoliotic curvature of the spine. Degenerative changes are noted. OTHER: None. IMPRESSION: 1. THERE IS BEEN IMPROVED AERATION OF THE RIGHT LUNG BASE. 2. THERE IS FOCAL MASSLIKE OPACIFICATION OF THE RIGHT LOWER LOBE ALONG THE TRACHEOESOPHAGEAL RECESS MEASURING UP TO 3.2 CM TRANSVERSELY. RECOMMEND CONSIDERATION OF CORRELATION WITH PET/CT AND/OR TISSUE SAMPLING. 3. EMPHYSEMA. 4. SMALL RESIDUAL PNEUMOTHORAX..
[2018-03-16 17:33] VITALS: BP 141/61
--- NOTE | 2018-03-17 02:32 | DS ---
CC: Dr. Rodriguez * [facility] MEDICINE DISCHARGE SUMMARY: DATE OF ADMISSION: 03/12/18 DATE OF DISCHARGE: 03/16/18 PRIMARY CARE PHYSICIAN: Dr. Rodriguez. ATTENDING PHYSICIAN: Dr. Dawna Bansal * (dictation provided by Bailey Grullon NP ). PRIMARY DIAGNOSIS: Right lower lobe lung mass with pleural effusion. SECONDARY DIAGNOSES: 1. Chronic obstructive pulmonary disease. 2. Hypertension. 3. Hyperlipidemia. 4. Coronary artery disease with stent placement. 5. Breast cancer. 6. History of myocardial infarction. PAST SURGICAL HISTORY: 1. Cardiac catheterization. 2. Cholecystectomy. 3. Lumpectomy. MEDICATIONS AT THE TIME OF DISCHARGE: 1. Aspirin 81 mg p.o. daily. 2. Multivitamin with mineral 1 tab p.o. daily. 3. Calcium carbonate with vitamin D3 one tab p.o. b.i.d.. 4. Cyanocobalamin vitamin B12 1000 mcg p.o. daily with meals. 5. Gabapentin 100 mg p.o. daily. 6. Simvastatin 20 mg p.o. daily. 7. Pantoprazole 40 mg p.o. daily. 8. Metoprolol tartrate 12.5 mg p.o. b.i.d. 9. Oxycodone and acetaminophen 5/325 one tab p.o. q.4 hours p.r.n. 10. Senna 1 tab p.o. at bedtime. 11. MiraLAX 17 g p.o. daily p.r.n. HOSPITAL COURSE: Ms. Aguayo is a 77-year-old female with past medical history of coronary artery disease with AR, breast cancer, and hypertension, who presented to the hospital on 03/12/18 with complaint of cough and shortness of breath. Please see the dictated H and P from Presley Swenson NP for complete details. In brief, the patient states she has had a 2-month history of worsening shortness of breath, which had gotten significantly worse over the past couple of weeks. The patient states she has unintentionally lost about 4 pounds over the last year. She had a chest x-ray, which showed an infiltrate or atelectasis at the right lung base with right-sided pleural effusion and a CTA of the chest, which showed no acute cardiopulmonary embolic disease, but airspace disease in the right lung base that appeared somewhat mass like, that was described as either inflammatory or neoplastic. She was afebrile and mildly tachycardic with the heart rate running 90 to 100. Blood pressure was stable. Labs are remarkable only for D-dimer, but as noted the CTA was negative for PE. Ms. Aguayo was admitted to the hospital. She was seen in consultation by Dr. Love from Oncology and I refer you to his note for complete details; but in brief, he noted that the patient was a long-term smoker with [id number]-[id number] history, now presenting with a large right pleural effusion with concern for potential lung cancer versus infection. He recommended a diagnostic thoracentesis. This was performed on 03/13/18, but they were unable to obtain fluid, so was repeated later in the afternoon by Dr. Calero during which time, the right thoracostomy tube was placed and 900 mL of fluid were withdrawn. 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 She had a followup chest CT today, 03/16/18, which showed "there has been improved aeration of the right lung base. There is focal mass like opacification of the right lower lobe along the transesophageal recess measuring up to 3.2 cm transversally. Recommend consideration of correlation with PET CT and/or tissue sampling, emphysema, and small residual pneumothorax." Ms. Aguayo is doing well. She is up in the room and she is on 2 L nasal cannula. Ms. Aguayo is medically stable for discharge at home. She will need close followup with Dr. Oliveira and the patient notes that she should call on Monday morning for an arrangement of an appointment, for followup, and for arrangement of biopsy. She has continued drainage at the site of the chest tube and she has received extensive instruction from the [facility] team regarding daily dressing changes with additional changes as needed for any excess drainage. The patient is aware that she should return to the emergency room if she has severe chest pain, shortness of breath or any other concerning symptom. She will have services with nursing and a home health aide through [facility] as well as the provision of home oxygen. Ms. Aguayo is medically stable. DISPOSITION: To home. DIET: Heart healthy. ACTIVITY: As tolerated. FOLLOWUP PLANS: 1. Please follow up with Dr. Oliveira. The patient is to call Monday for an appointment. 2. Please follow up with Dr. Rodriguez within the next week regarding this acute hospitalization. TIME SPENT: Approximately 60 minutes were spent on the discharge of this patient, more than half the time spent with the patient at bedside reviewing the events leading up to this hospitalization, performing the physical examination and reviewing the plan of care. BAILEY GRULLON NP [id number]/CPS #: [id number] ERIC
== END 2018-03-16 19:00 | disposition home health service (06) | DRG 187 ==
LOC: ED 17:07 → MEDTELE 21:05
PROVIDERS: ADMIT Hospitalist; ATTEND Internal Medicine
PROC: 0W993ZX Drainage of Right Pleural Cavity, Percutaneous Approach, Diagnostic (ICD-10-PCS; 2018-03-13)
PROC: 0W9930Z Drainage of Right Pleural Cavity with Drainage Device, Percutaneous Approach (ICD-10-PCS; principal; 2018-03-13 14:00)
DX: J90 Pleural effusion, not elsewhere classified (principal); J98.11 Atelectasis; J94.8 Other specified pleural conditions; M87.9 Osteonecrosis, unspecified; R91.8 Other nonspecific abnormal finding of lung field; I25.10 Atherosclerotic heart disease of native coronary artery without angina pectoris; I10 Essential (primary) hypertension; M81.0 Age-related osteoporosis without current pathological fracture; E78.5 Hyperlipidemia, unspecified; R00.0 Tachycardia, unspecified; K59.00 Constipation, unspecified; E87.8 Other disorders of electrolyte and fluid balance, not elsewhere classified; J43.9 Emphysema, unspecified; Z87.891 Personal history of nicotine dependence; Z88.1 Allergy status to other antibiotic agents; Z88.5 Allergy status to narcotic agent; Z88.0 Allergy status to penicillin; Z88.2 Allergy status to sulfonamides; Z88.8 Allergy status to other drugs, medicaments and biological substances; Z95.5 Presence of coronary angioplasty implant and graft; Z85.3 Personal history of malignant neoplasm of breast; Z90.49 Acquired absence of other specified parts of digestive tract; Z80.3 Family history of malignant neoplasm of breast; Z82.49 Family history of ischemic heart disease and other diseases of the circulatory system; Z72.89 Other problems related to lifestyle; I25.2 Old myocardial infarction; Z79.82 Long term (current) use of aspirin; Z99.81 Dependence on supplemental oxygen; Z92.3 Personal history of irradiation
CPT/HCPCS: 36415; 70553; 71045; 71046; 71260; 71275; 80048; 80053; 83036; 83615; 83735; 83986; 84145; 84157; 84484; 85025; 85379; 85610; 87040; 87070; 87205; 87899; 88112; 88305; 88341; 88342; 88360; 89051; 93005; 94640; 99223; 99231; 99285; 99406; A9270-GY; A9579; J0456; J0696; J1644; J2930; J3475; J7512; Q9967

== ENCOUNTER 2018-04-10 15:24 | Inpatient (IN) | payer MEDICARE ==
--- OUTSIDE RECORDS SUMMARY | 2018-04-10 15:44 | XMS REPORT ---
:1940 External Reference #:[id number] Author Organization [facility] Address [address] [place] [address] Phone [phone] Care Team Providers Name Role Phone Rogers Rodriguez MD Primary Care Physician Unavailable Payers Type Date Identification Numbers Payment Provider Subscriber Health Maintenance Policy Number: [id number] [employer] Group Number: [id number] [address] [id number] PayID: [id number] [place] [address] Problems Date Description Provider Status Onset: 08/16/2013 Chronic ischemic heart disease Chava Fuller M.D., YOSI, Active [facility] Onset: 08/16/2013 Essential hypertension Chava Fuller M.D., [facility], Active [facility] Onset: 08/16/2013 Hyperlipidemia Chava Fuller M.D., YOS[facility], Active [facility] Onset: 10/24/2014 Tobacco user Chava Fuller M.D., [facility], Active [facility] Onset: 04/29/2015 Spinal stenosis of lumbar region Shimon Myers M.D. Active Onset: 06/22/2015 Chronic ischemic heart disease, Chava Fuller M.D., RAIZA, Active unspecified [facility] Onset: 06/22/2015 Tobacco use Chava Fuller M.D., YOSI, Active [facility] Onset: 08/31/2016 Contracture of palmar fascia Grabiel Palomo MD Active Onset: 03/12/2018 Dyspnea Marques Swenson N.P. 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 Active Onset: 03/16/2018 Other nonspecific abnormal Bailey Grullon N.P. 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 In the other years it was 1 ppd ETOH Use Currently consumes alcohol 1-2 drinks in the evening Recreational Drug Use Denies Drug Use Smoking Patient is a former smoker Daily Caffeine Consumes on average 8oz of soda per day Exercise Type/Frequency Exercises rarely Allergies, Adverse Reactions, Alerts Date Description Reaction Status Severity Comments 03/22/2013 Reglan active 03/22/2013 Bactrim active 03/22/2013 Macrobid active 03/22/2013 Penicillin active 04/29/2015 Tumeric Spice active 02/13/2017 Levaquin active 02/13/2017 Ciprofloxacin active 03/30/2018 Azithromycin active 03/30/2018 Codeine active 03/30/2018 Clindamycin active 03/30/2018 Tetracycline active Medications Medication Date Status Form Strength Qnty SIG Indications Ordering Provider Pantoprazole 04/05/ Active Tablets DR 40mg 30tabs 1 by Chava Beach 2017 mouth Stefek, every day M.DJosé, [facility], [facility] Calcium + D 02/12/ Active Chewtabs twice Unknown 2016 daily Plavix 09/25/ Active Tablets 75mg 90tabs 1 by Chava 2014 mouth Stefek, every day M.D., [facility], [facility] Nitrostat 09/09/ Active Tablets 0.4mg 25tabs one sl Chava 2013 Sub q5min up [facility], to 3 M.D., doses as [facility], needed, [facility] if no relief after 3 call 911 Simvastatin 02/04/ Active Tablets 20mg 90tabs 1 by Chava 2012 mouth Jonathanfek, every day M.D., FAC, [facility] Metoprolol 02/04/ Active Tablets 25mg 90tabs one half Chava Tartrate 2012 tablet by Alina, mouth M.D., twice a [facility], [facility] Aspirin / Active Tablets 81mg 1 tablet Unknown 0000 po qd Vitamin B12 / Active Tablets ER 1000mcg 1 po qd Unknown 0000 Gabapentin / Active Capsules 300mg 1 by Unknown 0000 mouth daily Gabapentin 06/22/ Hx Capsules 100mg 90caps 1 by Chava 2014 - mouth two Alina, 02/12/ times a M.D., 2016 day prn [facility], [facility] Potassium 10/15/ Hx Solution 20Meq/15ML 675cc 7.5mg Chava Chloride 2013 - (10%) (10Meq) Alina, 04/29/ once po M.D., 2014 daily, [facility], [facility] once per [facility], per Dr Nicholas she doesn't need it daily anymore Clopidogrel 02/04/ Hx Tablets 75mg 90tabs 1 po qd Chava 2012 - Alina, 08/07/ M.DJosé, 2012 [facility], [facility] Lisinopril 02/04/ Hx Tablets 2.5mg 90tabs 1 po qd Chava 2012 - Alina, 08/07/ M.D., 2012 FAC, [facility] Famotidine 01/22/ Hx Tablets 20mg 180tab take one Chava 2012 - tablet by Alina, 04/29/ mouth M.D., 2014 twice a [facility], day [facility] Gabapentin / Hx Capsules 300mg 240cap 1 tab po Unknown 0000 - s daily prn 2014 Ibandronate / Hx Solution 1 every 6 Unknown Sodium 0000 - months 2014 Omeprazole / Hx Capsules 20mg 1 by Unknown 0000 - DR mouth 06/21/ every day 2014 Famotidine / Hx Tablets 20mg take one Unknown 0000 - tablet by mouth 2015 twice a day Omeprazole / Hx Capsules 20mg 90caps 1 by Chava Fuller, 04/05/ day MMichelle, 2017 [facility], [facility] Immunizations CPT Code Status Date Vaccine Lot # [id number] Given 06/23/2006 Influenza Virus 3Yrs & Over [id number] Given 06/23/2006 Influenza Virus 3Yrs & Over Vital Signs Date Vital Result Comment 03/30/2018 Height 62 inches 5'2" Weight 98.00 lb Heart Rate 84 /min BP Systolic Sitting 106 mmHg BP Diastolic Sitting 86 mmHg Respiratory Rate 14 /min O2 % BldC Oximetry 95 % on 3 L BMI (Body Mass Index) 17.9 kg/m2 Neck Circumference in inches 12.5 02/13/2017 Height 62 inches 5'2" Weight 104.00 lb with shoes Heart Rate 78 /min BP Systolic Sitting 112 mmHg LA reg cuff BP Diastolic Sitting 72 mmHg LA reg cuff BP Systolic Standing 110 mmHg LA reg cuff BP Diastolic Standing 70 mmHg LA reg cuff BMI (Body Mass Index) 19.0 kg/m2 Ejection Fraction 60% echo 02/28/12 08/31/2016 Height 62 inches 5'2" Weight 110.00 lb Respiratory Rate 16 /min Pain Level 0 BMI (Body Mass Index) 20.1 kg/m2 12/24/2015 Height 62 inches 5'2" Weight 108.00 lb Heart Rate 82 /min 94 BP Systolic Sitting 124 mmHg right arm, reg cuff BP Diastolic Sitting 88 mmHg right arm, reg cuff BP Systolic Standing 116 mmHg right arm, reg cuff BP Diastolic Standing 82 mmHg right arm, reg cuff Respiratory Rate 16 /min BMI (Body Mass Index) 19.8 kg/m2 Ejection Fraction 77-78% 03/25/14 NLM 06/30/2015 Heart Rate 66 /min 78 BP Systolic Sitting 122 mmHg left arm, reg cuff BP Diastolic Sitting 80 mmHg left arm, reg cuff BP Systolic Standing 98 mmHg left arm, reg cuff BP Diastolic Standing 72 mmHg left arm, reg cuff Respiratory Rate 16 /min 06/22/2015 Height 62 inches 5'2" Weight 109.00 lb Heart Rate 72 /min 84 BP Systolic Sitting 144 mmHg right arm, reg cuff BP Diastolic Sitting 90 mmHg right arm, reg cuff BP Systolic Standing 124 mmHg right arm, reg cuff BP Diastolic Standing 90 mmHg right arm, reg cuff Respiratory Rate 16 /min BMI (Body Mass Index) 19.9 kg/m2 Ejection Fraction 60% 02/28/12 04/29/2015 Height 62 inches 5'2" Weight 113.00 lb Heart Rate 82 /min BP Systolic Sitting 130 mmHg BP Diastolic Sitting 86 mmHg Pain Level 1 back BMI (Body Mass Index) 20.7 kg/m2 10/24/2014 Height 62 inches 5'2" Weight 113.00 lb Heart Rate 92 /min 92 BP Systolic Sitting 118 mmHg left arm, reg cuff BP Diastolic Sitting 76 mmHg left arm, reg cuff BP Systolic Standing 106 mmHg left arm, reg cuff BP Diastolic Standing 76 mmHg left arm, reg cuff Respiratory Rate 20 /min BMI (Body Mass Index) 20.7 kg/m2 04/07/2014 Height 62 inches 5'2" Weight 112.00 lb Heart Rate 74 /min 76 BP Systolic Sitting 100 mmHg left arm, reg cuff BP Diastolic Sitting 78 mmHg left arm, reg cuff BP Systolic Standing 96 mmHg left arm, reg cuff BP Diastolic Standing 76 mmHg left arm, reg cuff Respiratory Rate 16 /min BMI (Body Mass Index) 20.5 kg/m2 03/19/2014 Height 62 inches 5'2" Weight 111.00 lb without shoes Heart Rate 70 /min BP Systolic Sitting 112 mmHg Ra reg cuff BP Diastolic Sitting 80 mmHg Ra reg cuff BP Systolic Standing 110 mmHg Ra reg cuff BP Diastolic Standing 74 mmHg Ra reg cuff Respiratory Rate 15 /min BMI (Body Mass Index) 20.3 kg/m2 08/16/2013 Height 62.25 inches 5'2.25" Weight 112.00 lb Heart Rate 71615 /min BP Systolic Sitting 106 mmHg right arm, reg cuff BP Diastolic Sitting 78 mmHg right arm, reg cuff BP Systolic Standing 104 mmHg right arm, reg cuff BP Diastolic Standing 78 mmHg right arm, reg cuff Respiratory Rate 16 /min BMI (Body Mass Index) 20.3 kg/m2 03/22/2013 Height 63 inches 5'3" Weight 110.00 lb Heart Rate 73 /min BP Systolic 110 mmHg BP Diastolic 73 mmHg BMI (Body Mass Index) 19.5 kg/m2 Results Test Date Test Result H/L Range Note Laboratory test finding 03/26/2018 Point of Care Glucose 107 mg/dL High 70 -100 1 Laboratory test finding 03/03/2017 Alt (SGPT) 10 U/L 7-52 2 Ast (Sgot) 20 U/L 13-39 3 Lipid Profile (Trig/Chol/HDL) 03/03/2017 Triglycerides 80 mg/dL 4 Cholesterol 161 mg/dL 5 HDL Cholesterol 86.4 mg/dL 6 LDL Cholesterol 59 mg/dL 7 Lipid Profile (Trig/Chol/HDL) 06/15/2015 Triglycerides 133 mg/dL 8 Cholesterol 170 mg/dL 9 HDL Cholesterol 85.9 mg/dL 10 LDL Cholesterol 58 mg/dL 11 Laboratory test finding 06/15/2015 Alt (SGPT) 14 U/L 7-52 Ast (Sgot) 21 U/L 13-39 Basic Metabolic Panel 08/04/2014 Sodium 140 mmol/L 133-145 Potassium 4.2 mmol/L 3.5-5.0 12 Chloride 107 mmol/L 101-111 Co2 Carbon Dioxide 26 mmol/L 22-32 Anion Gap 7 mmol/L 2-11 Glucose 77 mg/dL 70-100 Blood Urea Nitrogen 13 mg/dL 6-24 Creatinine 0.91 mg/dL 0.51-0.95 BUN/Creatinine Ratio 14.3 8-20 Calcium 8.6 mg/dL 8.6-10.3 Egfr Non- 60.3 >60 Egfr 77.5 >60 13 Basic Metabolic Panel 05/14/2014 Sodium 139 mmol/L 133-145 Potassium 4.2 mmol/L 3.7-5.6 Chloride 103 mmol/L 101-111 Co2 Carbon Dioxide 32 mmol/L 22-32 Anion Gap 4 mmol/L 2-11 Glucose 84 mg/dL 70-100 Blood Urea Nitrogen 17 mg/dL 6-24 Creatinine 1.04 mg/dL High 0.51-0.95 BUN/Creatinine Ratio 16.3 8-20 Calcium 9.0 mg/dL 8.6-10.3 Egfr Non- 51.7 >60 Egfr 66.4 >60 14 Laboratory test finding 04/03/2014 Alt 16 U/L 7-52 15, 16 Ast 21 U/L 13-39 15, 17 Lipid Profile (Trig/Chol/HDL) 04/03/2014 Triglycerides 115 mg/dL 15, 18 Cholesterol 146 mg/dL 15, 19 HDL Cholesterol 72.8 mg/dL 15, 20 LDL Cholesterol 50 mg/dL 15, 21 Basic Metabolic Panel 01/21/2014 Sodium 138 mmol/L 133-145 Potassium 4.2 mmol/L 3.7-5.6 Chloride 106 mmol/L 101-111 Co2 Carbon Dioxide 26 mmol/L 22-32 Anion Gap 6 mmol/L 2-11 Glucose 81 mg/dL 70-100 Blood Urea Nitrogen 16 mg/dL 6-24 Creatinine 0.87 mg/dL 0.51-0.95 BUN/Creatinine Ratio 18.4 8-20 Calcium 9.6 mg/dL 8.6-10.3 Egfr Non- 63.6 >60 Egfr 81.9 >60 22 Basic Metabolic Panel 10/30/2013 Sodium 140 mmol/L 133-145 Potassium 4.1 mmol/L 3.7-5.6 Chloride 107 mmol/L 101-111 Co2 Carbon Dioxide 25 mmol/L 22-32 Anion Gap 8 mmol/L 2-11 Glucose 92 mg/dL 70-100 Blood Urea Nitrogen 16 mg/dL 6-24 Creatinine 0.81 mg/dL 0.51-0.95 BUN/Creatinine Ratio 19.8 8-20 Calcium 9.1 mg/dL 8.6-10.3 Egfr Non- 69.1 >60 Egfr 88.9 >60 23 Comp Metabolic Panel 08/05/2013 Sodium 141 mmol/L 133-145 Potassium 4.1 mmol/L 3.5-5.0 Chloride 103 mmol/L 101-111 Co2 Carbon Dioxide 31.0 mmol/L 22-32 Anion Gap 7.0 mmol/L 2-11 Glucose 84 mg/dL 70-100 Blood Urea Nitrogen 23 mg/dL 6-24 Creatinine 0.90 mg/dL 0.50-1.40 BUN/Creatinine Ratio 25.6 High 8-20 Calcium 10.1 mg/dL High 8.1-9.9 Total Protein 6.6 g/dL 6.2-8.1 Albumin 3.8 g/dL 3.2-5.2 Globulin 2.8 g/dL 2-4 Albumin/Globulin Ratio 1.4 1-3 Total Bilirubin 0.7 mg/dL 0.4-1.5 Alkaline Phosphatase 58 U/L 30-110 Alt 16 U/L 14-54 Ast 24 U/L 12-42 Egfr Non- 61.2 >60 Egfr 78.7 >60 24 CBC Auto Diff 08/05/2013 White Blood Count 7.7 10^3/uL 4.8-10.8 Red Blood Count 4.06 10^6/uL 4.0-5.4 Hemoglobin 13.8 g/dL 12.0-16.0 Hematocrit 42 % 35-47 Mean Corpuscular Volume 103 fL High 80-97 Mean Corpuscular Hemoglobin 34 pg High 27-31 Mean Corpuscular HGB Conc 33 g/dL 31-36 Red Cell Distribution Width 14 % 10.5-15 Platelet Count 226 10^3/uL 150-450 Mean Platelet Volume 9 um3 7.4-10.4 Abs Neutrophils 5.1 10^3/uL 1.5-7.7 Abs Lymphocytes 1.6 10^3/uL 1.0-4.8 Abs Monocytes 0.8 10^3/uL 0-0.8 Abs Eosinophils 0.1 10^3/uL 0-0.6 Abs Basophils 0.1 10^3/uL 0-0.2 Abs Nucleated RBC 0.01 10^3/uL Granulocyte % 66.4 % 38-83 Lymphocyte % 21.1 % Low 25-47 Monocyte % 11.0 % High 1-9 Eosinophil % 0.7 % 0-6 Basophil % 0.8 % 0-2 Nucleated Red Blood Cells % 0.1 Laboratory test finding 03/19/2013 Alt 14 U/L 14-54 25 Ast 22 U/L 12-42 26 Lipid Profile (Trig/Chol/HDL) 03/19/2013 Triglycerides 109 mg/dL 40-200 Cholesterol 161 mg/dL Less than 200 HDL Cholesterol 79 mg/dL High 40-60 27 Cholesterol/HDL Ratio 2.0 Average 1-4.44 LDL Cholesterol 60.2 Less Than 100 28 Protein Electrophoresis Serum 01/24/2013 Albumin (Pep) 3.40 g/dL 3.0- 4.35 Alpha 1 Globulins 0.17 g/dL 0.09-0.33 Alpha 2 Globulin 1.23 g/dL High 0.59-1.18 Beta Globulin 0.76 g/dL 0.68-1.02 Gamma Globulin 1.13 g/dL 0.76-1.60 Albumin % (Pep) 50.7 % 46-63 Alpha 1 Globulins % 2.5 % 1.2-5.3 Alpha 2 Globulin % 18.4 % High 9-17 Beta Globulin % 11.3 % 10-16 Gamma Globulin % 16.9 % 12-22 Albumin/Globulin Ratio 1.0 0.9-2.0 Total Protein (Pep) 6.7 g/dL 6.2-8.1 Spep Comments (SEE NOTE) 29 Vitamin D, 25 Hydroxy 01/24/2013 25-Hydroxy Vitamin D2 <4.0 ng/mL 25-Hydroxy Vitamin D3 48 ng/mL 25-Hydroxy Vitamin D Total 48 ng/mL 30 Laboratory test finding 01/24/2013 Hemoglobin A1c 5.2 % Less than 6.0 31 Vitamin B12 729 pg/mL 180-914 Comp Metabolic Panel 01/17/2013 Sodium 141 mmol/L 133-145 Potassium 4.3 mmol/L 3.5-5.0 Chloride 108 mmol/L 101-111 Co2 Carbon Dioxide 28.0 mmol/L 22-32 Anion Gap 5.0 mmol/L 2-11 Glucose 83 mg/dL 70-100 Blood Urea Nitrogen 19 mg/dL 6-24 Creatinine 0.80 mg/dL 0.50-1.40 BUN/Creatinine Ratio 23.8 High 8-20 Calcium 8.9 mg/dL 8.1-9.9 Total Protein 6.0 g/dL Low 6.2-8.1 Albumin 3.5 g/dL 3.2-5.2 Globulin 2.5 g/dL 2-4 Albumin/Globulin Ratio 1.4 1-3 Total Bilirubin 0.6 mg/dL 0.4-1.5 Alkaline Phosphatase 50 U/L 30-110 Alt 18 U/L 14-54 Ast 25 U/L 12-42 Egfr Non- 70.3 >60 Egfr 90.4 >60 32 CBC Auto Diff 01/17/2013 White Blood Count 4.8 10^3/uL 4.8-10.8 Red Blood Count 3.74 10^6/uL Low 4.0-5.4 Hemoglobin 13.0 g/dL 12.0-16.0 Hematocrit 38 % 35-47 Mean Corpuscular Volume 102 fL High 80-97 Mean Corpuscular Hemoglobin 35 pg High 27-31 Mean Corpuscular HGB Conc 34 g/dL 31-36 Red Cell Distribution Width 14 % 10.5-15 Platelet Count 210 10^3/uL 150-450 Mean Platelet Volume 9 um3 7.4-10.4 Abs Neutrophils 2.5 10^3/uL 1.5-7.7 Abs Lymphocytes 1.6 10^3/uL 1.0-4.8 Abs Monocytes 0.6 10^3/uL 0-0.8 Abs Eosinophils 0.1 10^3/uL 0-0.6 Abs Basophils 0.1 10^3/uL 0-0.2 Abs Nucleated RBC 0.01 10^3/uL Granulocyte % 50.9 % 38-83 Lymphocyte % 33.1 % 25-47 Monocyte % 12.6 % High 1-9 Eosinophil % 2.3 % 0-6 Basophil % 1.1 % 0-2 Nucleated Red Blood Cells % 0.1 Comp Metabolic Panel 11/02/2012 Sodium 145 mmol/L 133-145 Potassium 3.8 mmol/L 3.5-5.0 Chloride 97 mmol/L Low 101-111 Co2 Carbon Dioxide 27.0 mmol/L 22-32 Anion Gap 21.0 mmol/L High 2-11 Glucose 84 mg/dL 70-100 Blood Urea Nitrogen 13 mg/dL 6-24 Creatinine 0.70 mg/dL 0.50-1.40 BUN/Creatinine Ratio 18.6 8-20 Calcium 9.3 mg/dL 8.1-9.9 Total Protein 6.1 g/dL Low 6.2-8.1 Albumin 3.8 g/dL 3.2-5.2 Globulin 2.3 g/dL 2-4 Albumin/Globulin Ratio 1.7 1-3 Total Bilirubin 0.7 mg/dL 0.4-1.5 Alkaline Phosphatase 52 U/L 30-110 Alt 17 U/L 14-54 Ast 25 U/L 12-42 Egfr Non- 82.0 >60 Egfr 105.5 >60 33 CBC Auto Diff 11/02/2012 White Blood Count 7.5 10^3/uL 4.8-10.8 Red Blood Count 3.89 10^6/uL Low 4.0-5.4 Hemoglobin 13.4 g/dL 12.0-16.0 Hematocrit 40 % 35-47 Mean Corpuscular Volume 103 fL High 80-97 Mean Corpuscular Hemoglobin 34 pg High 27-31 Mean Corpuscular HGB Conc 34 g/dL 31-36 Red Cell Distribution Width 13 % 10.5-15 Platelet Count 200 10^3/uL 150-450 Mean Platelet Volume 9 um3 7.4-10.4 Abs Neutrophils 4.8 10^3/uL 1.5-7.7 Abs Lymphocytes 1.8 10^3/uL 1.0-4.8 Abs Monocytes 0.8 10^3/uL 0-0.8 Abs Eosinophils 0.1 10^3/uL 0-0.6 Abs Basophils 0 10^3/uL 0-0.2 Abs Nucleated RBC 0 10^3/uL Granulocyte % 64.5 % 38-83 Lymphocyte % 23.6 % Low 25-47 Monocyte % 10.5 % High 1-9 Eosinophil % 0.9 % 0-6 Basophil % 0.5 % 0-2 Nucleated Red Blood Cells % 0 Basic Metabolic Panel 08/07/2012 Sodium 143 mmol/L 133-145 Potassium 4.3 mmol/L 3.5-5.0 Chloride 107 mmol/L 101-111 Co2 Carbon Dioxide 28.0 mmol/L 22-32 Anion Gap 8.0 mmol/L 2-11 Glucose 91 mg/dL 70-100 Blood Urea Nitrogen 11 mg/dL 6-24 Creatinine 0.80 mg/dL 0.50-1.40 BUN/Creatinine Ratio 13.8 8-20 Calcium 9.6 mg/dL 8.1-9.9 Egfr Non- 70.3 >60 Egfr 90.4 >60 34 1 Trainman: [id number] [address] Rogers Rodriguez [address] Rogers Rodriguez 4 Desirable <150 Borderline high 150-199 High 200-499 Very High >500 5 Desirable <200 Borderline high 200-239 High >239 6 Low <40 Desirable: 40-60 High: >60 7 Desirable: <100 mg/dL Near Optimal: 100-129 mg/dL Borderline High: 130-159 mg/dL High: 160-189 mg/dL Very High: >189 mg/dL 8 Desirable <150 Borderline high 150-199 High 200-499 Very High >500 9 Desirable <200 Borderline high 200-239 High >239 10 Low <40 Desirable: 40-60 High: >60 11 Desirable: <100 mg/dL Near Optimal: 100-129 mg/dL Borderline High: 130-159 mg/dL High: 160-189 mg/dL Very High: >189 mg/dL 12 Potassium reference range changed effective 07/06/14 13 Because ethnic data is not always readily available, this report includes an eGFR for both -Americans and non- Americans. The National Kidney Disease Education Program (NKDEP) does not endorse the use of the MDRD equation for patients that are not between the ages of 18 and 70, are , have extremes of body size, muscle mass, or nutritional status, or are non- or non-. According to the National Kidney Foundation, irrespective of diagnosis, the stage of the disease is based on the level of kidney function: Stage Description GFR(mL/min/1.73 m(2)) 1 Kidney damage with normal or decreased GFR 90 2 Kidney damage with mild decrease in GFR 60-89 3 Moderate decrease in GFR 30-59 4 Severe decrease in GFR 15-29 5 Kidney failure <15 (or dialysis) 14 Because ethnic data is not always readily available, this report includes an eGFR for both -Americans and non- Americans. The National Kidney Disease Education Program (NKDEP) does not endorse the use of the MDRD equation for patients that are not between the ages of 18 and 70, are , have extremes of body size, muscle mass, or nutritional status, or are non- or non-. According to the National Kidney Foundation, irrespective of diagnosis, the stage of the disease is based on the level of kidney function: Stage Description GFR(mL/min/1.73 m(2)) 1 Kidney damage with normal or decreased GFR 90 2 Kidney damage with mild decrease in GFR 60-89 3 Moderate decrease in GFR 30-59 4 Severe decrease in GFR 15-29 5 Kidney failure <15 (or dialysis) 15 PT IS FASTING 16 PT IS FASTING 17 PT IS FASTING 18 Desirable <150 Borderline high 150-199 High 200-499 Very High >500 19 Desirable <200 Borderline high 200-239 High >239 20 Low <40 Desirable: 40-60 High: >60 21 Desirable <100 Near Optimal 100-129 Borderline high 130-159 High 160-189 Very High >189 22 Because ethnic data is not always readily available, this report includes an eGFR for both -Americans and non- Americans. The National Kidney Disease Education Program (NKDEP) does not endorse the use of the MDRD equation for patients that are not between the ages of 18 and 70, are , have extremes of body size, muscle mass, or nutritional status, or are non- or non-. According to the National Kidney Foundation, irrespective of diagnosis, the stage of the disease is based on the level of kidney function: Stage Description GFR(mL/min/1.73 m(2)) 1 Kidney damage with normal or decreased GFR 90 2 Kidney damage with mild decrease in GFR 60-89 3 Moderate decrease in GFR 30-59 4 Severe decrease in GFR 15-29 5 Kidney failure <15 (or dialysis) 23 Because ethnic data is not always readily available, this report includes an eGFR for both -Americans and non- Americans. The National Kidney Disease Education Program (NKDEP) does not endorse the use of the MDRD equation for patients that are not between the ages of 18 and 70, are , have extremes of body size, muscle mass, or nutritional status, or are non- or non-. According to the National Kidney Foundation, irrespective of diagnosis, the stage of the disease is based on the level of kidney function: Stage Description GFR(mL/min/1.73 m(2)) 1 Kidney damage with normal or decreased GFR 90 2 Kidney damage with mild decrease in GFR 60-89 3 Moderate decrease in GFR 30-59 4 Severe decrease in GFR 15-29 5 Kidney failure <15 (or dialysis) 24 Because ethnic data is not always readily available, this report includes an eGFR for both -Americans and non- Americans. The National Kidney Disease Education Program (NKDEP) does not endorse the use of the MDRD equation for patients that are not between the ages of 18 and 70, are , have extremes of body size, muscle mass, or nutritional status, or are non- or non-. According to the National Kidney Foundation, irrespective of diagnosis, the stage of the disease is based on the level of kidney function: Stage Description GFR(mL/min/1.73 m(2)) 1 Kidney damage with normal or decreased GFR 90 2 Kidney damage with mild decrease in GFR 60-89 3 Moderate decrease in GFR 30-59 4 Severe decrease in GFR 15-29 5 Kidney failure <15 (or dialysis) 25 PT IS FASTING 26 PT IS FASTING 27 HDL Interpretation: Undesirable: High Risk: Less than 40 mg/dL Desirable: Low Risk: Greater than 60 mg/dL 28 LDL Interpretation: Low Risk Optimal Level: LDL Less than 100 mg/dL Near or Above Optimal: LDL 100-129 mg/dL Borderline High Risk: LDL 130-159 mg/dL High Risk: LDL 160-189 mg/dL Very High Risk: LDL Greater than 189 mg/dL 29 Normal serum electrophoretic pattern. 30 -- REFERENCE VALUE -- 25-HYDROXY D TOTAL (D2+D3) Optimum levels in the normal population are 25-80 Test Performed by: [address] [address] Security Team Lead: Broderick Walters III, M.D. 31 Therapeutic target for the treatment of diabetes Mellitus patients is <7% HBA1C, and in selective patients <6.0%.Please refer to [place] [employer] Diabetic care guidelines for further information. 32 Because ethnic data is not always readily available, this report includes an eGFR for both -Americans and non- Americans. The National Kidney Disease Education Program (NKDEP) does not endorse the use of the MDRD equation for patients that are not between the ages of 18 and 70, are , have extremes of body size, muscle mass, or nutritional status, or are non- or non-. According to the National Kidney Foundation, irrespective of diagnosis, the stage of the disease is based on the level of kidney function: Stage Description GFR(mL/min/1.73 m(2)) 1 Kidney damage with normal or decreased GFR 90 2 Kidney damage with mild decrease in GFR 60-89 3 Moderate decrease in GFR 30-59 4 Severe decrease in GFR 15-29 5 Kidney failure <15 (or dialysis) 33 Because ethnic data is not always readily available, this report includes an eGFR for both -Americans and non- Americans. The National Kidney Disease Education Program (NKDEP) does not endorse the use of the MDRD equation for patients that are not between the ages of 18 and 70, are , have extremes of body size, muscle mass, or nutritional status, or are non- or non-. According to the National Kidney Foundation, irrespective of diagnosis, the stage of the disease is based on the level of kidney function: Stage Description GFR(mL/min/1.73 m(2)) 1 Kidney damage with normal or decreased GFR 90 2 Kidney damage with mild decrease in GFR 60-89 3 Moderate decrease in GFR 30-59 4 Severe decrease in GFR 15-29 5 Kidney failure <15 (or dialysis) 34 Because ethnic data is not always readily available, this report includes an eGFR for both -Americans and non- Americans. The National Kidney Disease Education Program (NKDEP) does not endorse the use of the MDRD equation for patients that are not between the ages of 18 and 70, are , have extremes of body size, muscle mass, or nutritional status, or are non- or non-. According to the [employer], irrespective of diagnosis, the stage of the disease is based on the level of kidney function: Stage Description GFR(mL/min/1.73 m(2)) 1 Kidney damage with normal or decreased GFR 90 2 Kidney damage with mild decrease in GFR 60-89 3 Moderate decrease in GFR 30-59 4 Severe decrease in GFR 15-29 5 Kidney failure <15 (or dialysis) Procedures Date CPT Code Description Status 03/13/2018 82362 Thoracentesis Needle/Catheter Aspiration W/ Img Completed Guidance 03/13/2018 00564 Tube,Thoracostomy,Incl Water S Completed 02/13/2017 32818 EKG Tracing & Interpretation Completed 01/10/2017 Mammogram Completed 12/24/2015 94364 EKG Tracing & Interpretation Completed 09/11/2015 Mammogram Completed 08/10/2015 13615 Holter Monitoring 24 HR New Completed 06/22/2015 46197 EKG Tracing & Interpretation Completed 04/17/2015 Mammogram Completed 10/24/2014 89793 EKG Tracing & Interpretation Completed 08/04/2014 Bone Mineral Density Test Completed 08/04/2014 Mammogram Completed 03/24/2014 77063 Stress Test Supervsn W/Out I/R Completed 03/24/2014 50528 Treadmill Interp/Report Only Completed 03/19/2014 17904 EKG Tracing & Interpretation Completed 08/16/2013 93132 EKG Tracing & Interpretation Completed 02/14/2013 24594 EKG Tracing & Interpretation Completed 08/14/2012 85674 EKG Tracing & Interpretation Completed 12/15/2011 53467 EKG, Interpretation Only Completed 12/15/2011 55901 EKG, Interpretation Only Completed 12/14/2011 57591 EKG, Interpretation Only Completed 11/08/2006 79122 EKG Tracing & Interpretation Completed 11/08/2006 15799 EKG Tracing & Interpretation Completed Encounters Type Date Location Provider CPT E/M Dx Office Visit 03/30/2018 [facility] [address] R91.8 1:45p Services Of Logistics Planning Manager Petra J44.9 R09.02 Office Visit 03/16/2018 12:06p [facility] Bailey Grullon, N.P. 07620 R91.8 Hospitalists J90 J44.9 Office Visit 03/15/2018 12:05p [facility] Ceci Bhatti, MARVA 50784 J44.1 Hospitalists J90 I10 E78.5 Office Visit 03/15/2018 7:00a [facility] Melodie Mercado 95762 J94.8 [facility] MARVA Falcon Office Visit 03/14/2018 12:05p [facility] Ceci Bhatti, MARVA 22686 J90 Assoc, Hospitalists J44.1 I10 E78.5 Office Visit 03/14/2018 7:00a [facility] Fredrick Calero, 87582 J94.8 Danae Hatch Office Visit 03/13/2018 12:04p [facility],lucas Bhatti, MARVA 71013 J44.1 Hospitalists I10 Office Visit 03/12/2018 12:03p [facility] Marques Swenson, 14920 R06.02 Assoc, Hospitalists N.P. I10 E78.5 I25.10 Office Visit 02/13/2017 4:00p [facility] Chava Fuller M.D., 29848 I25.10 Logistics Planning Manager AT [facility], FSCAI E78.5 Z72.0 I10 Office Visit 01/16/2017 1:53p [facility] Merlin Vo, 36599 J44.9 Hospitalists Holden I25.10 A41.9 Office Visit 01/15/2017 1:53p [facility] Merlin Vo, 34525 J44.9 Hospitalists [place]en I25.10 A41.9 Office Visit 01/14/2017 1:45p [facility] Merlin Vo, 51550 I25.10 Hospitalists Holden J44.9 A41.9 Office Visit 08/31/2016 2:30p [facility] [place] [address] M72.0 C.M.A. Office Visit 12/24/2015 11:20a [facility] Chava Fuller M.D., 32233 I10 Logistics Planning Manager AT [facility], [facility] I25.9 E78.5 Z72.0 Office Visit 06/30/2015 2:45p [facility] Nurse Visit 09939 I10 AT [facility] Office Visit 06/22/2015 11:20a [facility] Chava Fuller M.D., 41553 I25.9 AT [facility] [place] [place] E78.5 Z72.0 Office Visit 04/29/2015 3:00p [facility] Shimon Myers, 06257 724.03 Of Danae Hatch Office Visit 10/24/2014 2:00p [facility] Wendy Fuller M.D., 70415 414.9 [facility] AT [facility], [facility] [place] 401.9 272.4 305.1 Office Visit 04/07/2014 3:00p [facility] Wendy Fuller M.D., 61076 414.9 [facility] AT [facility], [facility] [place] 401.9 272.4 Office Visit 03/19/2014 2:30p [facility] Wendy Fuller M.D., 43908 414.9 [facility] AT [facility], [facility] [place] 401.9 272.4 Office Visit 08/16/2013 3:00p [facility] Wendy Fuller M.D., 61282 414.9 [facility] AT [facility], [facility] [place] 401.9 272.4 Office Visit 04/05/2013 11:15a [facility] Julia Berg, 33024 728.6 Of Bartolo Hatch Office Visit 03/22/2013 10:00a [facility] Julia Berg, 04279 728.6 Of Bartolo Hatch Office Visit 02/14/2013 9:30a [facility] Wendy Fuller M.D., 49080 414.9 [facility] AT [facility], [facility] Office Visit 08/14/2012 11:15a [facility] Chava Fuller M.D., 79857 414.9 [facility], [facility] 401.9 272.4 Office Visit 03/26/2007 11:00a DO Not Use RadKatherine shaw, 41940 724.1 Danae-Zion M.Alyse 726.5 733.00 530.81 Office Visit 11/08/2006 11:00a DO Not Use RadKatherine shaw, 90220 786.2 Logistics Planning Manager-[place] M.DJosé 496 558.9 272.0 V70.0 Office Visit 09/13/2006 3:45p DO Not Use RadKatherine shaw, 57109 466.0 Danae-Zion M.Alyse 496 Office Visit 04/18/2006 4:00p DO Not Use RadKatherine shaw, 60813 401.1 Danae-Zion Hebert.Alyse Plan of Care Future Appointment(s):04/20/2018 3:00 pm - Nikole Thomas MD at [facility]03/30/2018 - Nikole Thomas, MDR91.8 Other nonspecific abnormal finding of lung fieldNew Xrays:US Lung Biopsy W/ Image RightFollow up: 2 [id number] Pleural effusion, not elsewhere [id number] Chronic obstructive pulmonary disease, [id number] Hypoxemia
[2018-04-10 16:53] LABS: Hematocrit 38 % (35-47); Hemoglobin 12.5 g/dl (12.0-16.0); Mean Corpuscular HGB Conc 33 g/dl (31-36); Mean Corpuscular Hemoglobin 32 pg (27-31); Mean Corpuscular Volume 97 fL (80-97); Platelet Count 349 10^3/ul (150-450); Red Blood Count 3.89 10^6/ul (4.00-5.40); Red Cell Distribution Width 13 % (10.5-15); White Blood Count 12.2 10^3/ul (3.5-10.8)
[2018-04-10 17:16] LABS: INR 1.01 (0.77-1.02)
[2018-04-10 17:19] LABS: EGFR Non-African American 106.9 (>60)
--- NOTE | 2018-04-10 17:21 | RAD ---
INDICATION: Shortness of breath. Status post thoracentesis. History of breast cancer. COMPARISON: March 26, 2018 CT. TECHNIQUE: Dual energy PA and routine lateral views of the chest were obtained. REPORT: Negative for pneumothorax. Small dependent and partially loculated RIGHT pleural effusion with proportional basilar atelectasis similar to the March 26, 2018 CT. Elevated lung volumes with mild prominence of interstitial markings and upper lung zone rarefaction. The heart, pulmonary vasculature, and mediastinal contours are unremarkable. Mild rightward mediastinal shift without change. IMPRESSION: #. Negative for pneumothorax. #. Small dependent and partially loculated RIGHT pleural effusion with proportional basilar atelectasis similar to the March 26, 2018 CT. Mild rightward mediastinal shift without change. #. Stigmata of advanced chronic obstructive pulmonary disease and emphysema.
[2018-04-10 17:24] LABS: ABS Basophils 0.1 10^3/ul (0-0.2); ABS Eosinophils 0.1 10^3/ul (0-0.6); ABS Lymphocytes 1.3 10^3/ul (1.0-4.8); ABS Monocytes 1.6 10^3/ul (0-0.8); ABS Neutrophils 9.2 10^3/ul (1.5-7.7); ABS Nucleated RBC 0 10^3/ul; Eosinophil % 1.1 % (0-6); Lymphocyte % 10.4 % (25-47); Nucleated Red Blood Cells % 0
[2018-04-10] MEDS ORDERED: Iohexol 350* (CONTRAST) 500 ML MDV IV ONE (17:55)
[2018-04-10] MEDS ORDERED: Morphine VIAL* 10 MG/ML 1 ML VIAL IV ONE (18:30)
[2018-04-10] MEDS ORDERED: Ondansetron INJ* 2 MG/ML VIAL IV ONE (18:31)
--- NOTE | 2018-04-10 18:51 | ED ---
Shortness of Breath - HPI Summary HPI Summary: This is scribe Wilberto Lehman documenting for attending Yashira Salgado MD. A 77 y/o female presents to ED c/o increased SOB and increased oxygen requirement after outpatient elective right thoracentesis for recurrent right pleural effusion, referred for further evaluation and treatment. Additionally c/ o painful breast area on right. In the ED upon initial evaluation, the patient has a rate of 94 BPM, O2 saturation fo 96% and blood pressure of 129/76. According to the patient she just had 1.5 L of pleural fluid drained that was pink (reported "bloody" by staff bringing pt to ED), however her breathing did not get better despite draining the pleural fluid, as it did 3 weeks prior. She states that she was admitted to [facility] on 03/12/18 with SOB and was admitted here for 5 days. Originally, pt states the doctors thought it was pneumonia, but she had no fever. She continued to have trouble with breathing and even through her entire stay at [facility] she had no fever. After 5 days, she went home and was put on O2 for the first time 2LNC for home use. Even still her symptoms did not subside and her SOB was getting worse. This morning, she was gasping for breath. Today the fluid drained on thoracentesis looked pink/wine colored. Her SOB didn't get better after drainage of the 1.5 L fluid and so pt's O2 was increased from 2L to 3 L and still, pt didn't get better. Pt denies any fever, CP, or pain/swelling in legs, however does have a sore throat. PMHx of COPD, lumpectomy (11 years ago), pleurocentesis (right-back), stents, cholecystectomy , denies lung cancer and thrombosis. FHx of cancer. SHx of former smoker ("quit late"). Patient wants to stay in ED for observation if she can due to SOB, stating she doesn't feel safe going home with SOB. Patient has been off blood thinners (plavix) due to planned thoracentesis today. Multiple allergies noted , including many antibiotics. Patient can have doxycycline without problems ( given in March 2018). I, Dr. Yashira Salgado, personally performed the services described in this documentation as scribed in my presence and it is both accurate and complete. - History of Current Complaint Chief Complaint: EDShortnessOfBreath Time Seen by Provider: 04/10/18 16:20 Hx Obtained From: Patient, Medical Records Onset/Duration: Gradual Onset, Lasting Weeks, Still Present, Worse Since Timing: Constant Current Severity: Moderate Dyspnea At: Rest Aggrevating Factors: Nothing Alleviating Factors: Nothing Associated Signs & Symptoms: Negative Related History: Similar Episode - pleural effusion drained 03/2018 - Allergy/Home Medications Allergies/Adverse Reactions: Allergies Allergy/AdvReac Type Severity Reaction Status Date / Time azithromycin [From Zithromax] Allergy Unknown Verified 04/10/18 14:42 Reaction Details cefuroxime Allergy Rash Verified 04/10/18 14:42 ciprofloxacin Allergy Difficulty Verified 04/10/18 14:42 Breathing clindamycin Allergy Unknown Verified 04/10/18 14:42 Reaction Details levofloxacin [From Levaquin] Allergy Swelling Verified 04/10/18 14:42 Of Face,Lips,& Throat nitrofurantoin Allergy Hives Verified 04/10/18 14:42 [From Macrobid] Penicillins Allergy Hives Verified 04/10/18 14:42 cephalexin [From Keflex] AdvReac Flushing Verified 04/10/18 20:10 codeine AdvReac Altered Verified 04/10/18 20:10 Mental Status metoclopramide [From Reglan] AdvReac irritabilit Verified 04/10/18 20:10 y sulfamethoxazole AdvReac Dizziness Verified 04/10/18 20:10 [From Bactrim] tetracycline AdvReac Yeast Verified 04/10/18 20:10 infection trimethoprim [From Bactrim] AdvReac Dizziness Verified 04/10/18 20:10 Home Medications: Home Medications Biotin 1 mg PO DAILY WITH MEAL 04/10/18 [History Confirmed 04/10/18] Clopidogrel TAB* [Plavix TAB*] 75 mg PO DAILY WITH MEAL 04/10/18 [History Confirmed 04/10/18] PMH/Surg Hx/FS Hx/Imm Hx Previously Healthy: No Endocrine/Hematology History: Denies: Hx Diabetes Cardiovascular History: Reports: Hx Angina - PAST, Hx Coronary Artery Disease - 2 STENTS, Hx Hypercholesterolemia, Hx Hypertension Denies: Hx Myocardial Infarction - WAS TOLD SHE "HAD AN EVENT" and stents were placed, Hx Pacemaker/ICD Respiratory History: Reports: Hx Chronic Obstructive Pulmonary Disease (COPD) - MILD, Hx Pleural Effusion, Hx Sleep Apnea Denies: Hx Asthma GI History: Reports: Hx Gastroesophageal Reflux Disease History: Denies: Hx Renal Disease Musculoskeletal History: Reports: Hx Osteoporosis Denies: Hx Arthritis, Hx Rheumatoid Arthritis Sensory History: Reports: Hx Contacts or Glasses Denies: Hx Hearing Aid Opthamlomology History: Reports: Hx Contacts or Glasses Psychiatric History: Denies: Hx Panic Disorder - Cancer History Cancer Type, Location and Year: BREAST Hx Chemotherapy: No Hx Radiation Therapy: Yes - RIGHT BREAST - Surgical History Surgery Procedure, Year, and Place: cardiac stents, wisdom teeth, lumpectomy Infectious Disease History: No Infectious Disease History: Denies: Traveled Outside the [place] in Last 30 Days - Family History Known Family History: Positive: Cardiac Disease - CAD, Other - breast CA - Social History Alcohol Use: Daily Alcohol Amount: couple glasses wine or gin/tonic Hx Substance Use: No Substance Use Type: Reports: None Hx Tobacco Use: Yes Smoking Status (MU): Former Smoker Type: Cigarettes Amount Used/How Often: 7-10 DAILY Length of Time of Smoking/Using Tobacco: SINCE 1954 Have You Smoked in the Last Year: Yes Review of Systems Negative: Fever Positive: Sore Throat Negative: Chest Pain Positive: Shortness Of Breath Gastrointestinal: Negative Negative: Edema Neurological: Negative Psychological: Normal All Other Systems Reviewed And Are Negative: Yes Physical Exam - Summary Physical Exam Summary: Appearance: ill-appearing, moderate pain distress, thin, speaks full sentences, on 3 L nasal canula oxygen. Skin:Warm, color reflects adequate perfusion, dry, bandage right posterior lower lung. Head:Normal Head/Face inspection, atraumatic Eyes: Conjunctiva clear ENT:Normal inspection Neck:Supple, no nodes, no JVD Respiratory: coarse rhonchi right base, rales right base, no respiratory distress Cardio: RRR, No murmur, pulses normal, brisk capillary refill Abdomen: Soft, nontender Bowel sounds: Present Musculoskeletal: Strength Intact/ROM intact, no calf tenderness, no edema. Psychological: Normal Neuro: Alert, muscle tone normal, no focal deficit Triage Information Reviewed: Yes Vital Signs On Initial Exam: Initial Vitals Temp Pulse Resp BP Pulse Ox 98.6 F 103 20 106/71 94 04/10/18 15:26 04/10/18 15:26 04/10/18 15:26 04/10/18 15:26 04/10/18 15:26 Vital Signs Reviewed: Yes Diagnostics - Vital Signs Vital Signs Temp Pulse Resp BP Pulse Ox 04/10/18 18:36 20 04/10/18 17:00 94 23 97 04/10/18 16:36 22 124/80 04/10/18 16:14 20 04/10/18 16:06 94 13 129/76 94 04/10/18 15:26 98.6 F 103 20 106/71 94 - Laboratory Lab Results: Lab Results 04/10/18 04/10/18 04/10/18 Range/Units 16:42 16:42 16:42 WBC (3.5-10.8) 10^3/ul RBC (4.00-5.40) 10^6/ul Hgb (12.0-16.0) g/dl Hct (35-47) % MCV (80-97) fL MCH (27-31) pg MCHC (31-36) g/dl RDW (10.5-15) % Plt Count (150-450) 10^3/ul MPV (7.4-10.4) um3 Neut % (Auto) (38-83) % Lymph % (Auto) (25-47) % [place] % (Auto) (0-7) % Eos % (Auto) (0-6) % Baso % (Auto) (0-2) % Absolute Neuts (auto) (1.5-7.7) 10^3/ul Absolute Lymphs (auto) (1.0-4.8) 10^3/ul Absolute Monos (auto) (0-0.8) 10^3/ul Absolute Eos (auto) (0-0.6) 10^3/ul Absolute Basos (auto) (0-0.2) 10^3/ul Absolute Nucleated RBC 10^3/ul Nucleated RBC % INR (Anticoag Therapy) 1.01 (0.77-1.02) APTT 28.8 (26.0-36.3) seconds Sodium (135-145) mmol/L Potassium (3.5-5.0) mmol/L Chloride (101-111) mmol/L Carbon Dioxide (22-32) mmol/L Anion Gap (2-11) mmol/L BUN (6-24) mg/dL Creatinine (0.51-0.95) mg/dL Est GFR ( Amer) (>60) Est GFR (Non-Af Amer) (>60) BUN/Creatinine Ratio (8-20) Glucose (70-100) mg/dL Lactic Acid 0.5 (0.5-2.0) mmol/L Calcium (8.6-10.3) mg/dL Total Bilirubin (0.2-1.0) mg/dL AST (13-39) U/L ALT (7-52) U/L Alkaline Phosphatase (34-104) U/L Total Creatine Kinase (10-223) U/L CK-MB (CK-2) (0.6-6.3) ng/mL Troponin I (<0.04) ng/mL C-Reactive Protein (<8.01) mg/L B-Natriuretic Peptide 78 ( - 100) pg/mL Total Protein (6.4-8.9) g/dL Albumin (3.2-5.2) g/dL Globulin (2-4) g/dL Albumin/Globulin Ratio (1-3) 04/10/18 04/10/18 Range/Units 16:43 16:43 WBC 12.2 H (3.5-10.8) 10^3/ul RBC 3.89 L (4.00-5.40) 10^6/ul Hgb 12.5 (12.0-16.0) g/dl Hct 38 (35-47) % MCV 97 (80-97) fL MCH 32 H (27-31) pg MCHC 33 (31-36) g/dl RDW 13 (10.5-15) % Plt Count 349 (150-450) 10^3/ul MPV 8.0 (7.4-10.4) um3 Neut % (Auto) 75.2 (38-83) % Lymph % (Auto) 10.4 L (25-47) % [place] % (Auto) 12.9 H (0-7) % Eos % (Auto) 1.1 (0-6) % Baso % (Auto) 0.4 (0-2) % Absolute Neuts (auto) 9.2 H (1.5-7.7) 10^3/ul Absolute Lymphs (auto) 1.3 (1.0-4.8) 10^3/ul Absolute Monos (auto) 1.6 H (0-0.8) 10^3/ul Absolute Eos (auto) 0.1 (0-0.6) 10^3/ul Absolute Basos (auto) 0.1 (0-0.2) 10^3/ul Absolute Nucleated RBC 0 10^3/ul Nucleated RBC % 0 INR (Anticoag Therapy) (0.77-1.02) APTT (26.0-36.3) seconds Sodium 135 (135-145) mmol/L Potassium 3.8 (3.5-5.0) mmol/L Chloride 96 L (101-111) mmol/L Carbon Dioxide 30 (22-32) mmol/L Anion Gap 9 (2-11) mmol/L BUN 11 (6-24) mg/dL Creatinine 0.55 (0.51-0.95) mg/dL Est GFR ( Amer) 129.3 (>60) Est GFR (Non-Af Amer) 106.9 (>60) BUN/Creatinine Ratio 20.0 (8-20) Glucose 119 H (70-100) mg/dL Lactic Acid (0.5-2.0) mmol/L Calcium 9.3 (8.6-10.3) mg/dL Total Bilirubin 0.30 (0.2-1.0) mg/dL AST 18 (13-39) U/L ALT 9 (7-52) U/L Alkaline Phosphatase 75 (34-104) U/L Total Creatine Kinase 35 (10-223) U/L CK-MB (CK-2) 2.2 (0.6-6.3) ng/mL Troponin I 0.00 (<0.04) ng/mL C-Reactive Protein 79.57 H (<8.01) mg/L B-Natriuretic Peptide ( - 100) pg/mL Total Protein 6.5 (6.4-8.9) g/dL Albumin 3.1 L (3.2-5.2) g/dL Globulin 3.4 (2-4) g/dL Albumin/Globulin Ratio 0.9 L (1-3) Result Diagrams: 04/10/18 16:43 04/10/18 16:43 Lab Statement: Any lab studies that have been ordered have been reviewed, and results considered in the medical decision making process. - Radiology CXR Radiology Interpretation Completed By: Radiologist - Negative for pneumothorax. Small dependent and partially loculated RIGHT pleural effusion with proportional basilar atelectasis similar to the March 26, 2018 CT. Mild rightward mediastinal shift without change. Stigmata of advanced chronic obstructive pulmonary disease and emphysema. ED physician reviewed this radiology report. - CT CTA Chest/Thorax CT Interpretation Completed By: Radiologist - No evidence for pulmonary embolism. Small predominant dependent partially loculated RIGHT pleural effusion with interval decrease compared with the March 26, 2018 exam reflecting thoracentesis today. Proportional atelectasis. Nodular RIGHT hemithorax pleural thickening most prominent at the level of the azygos esophageal recess. There is also soft tissue thickening of the axial interstitium of the RIGHT lung in the infrahilar region without significant interval change. Unchanged borderline enlarged RIGHT suprahilar and mildly enlarged RIGHT infrahilar lymph nodes. ED physician reviewed this radiology report. - EKG 1627 Cardiac Rate: NL - 89 BPM. EKG Rhythm: Sinus Rhythm ST Segment: Non-Specific Ectopy: None EKG Interpretation: nl JACE CT, nl QTc, axis -2, no acute changes. EKG Comparison: No Significant Change - Compared with 03/12/2018 Re-Evaluation - Re-Evaluation First Eval Re-Evaluation Time: 19:50 Change: Improved Comment: Patient has no pain, no SOB. Discussed CTA. Patient is agreeable with admission. Course/Dx - Course Course Of Treatment: A 77 y/o female presents to ED c/o SOB, painful breast area on right, and increased O2 requirement from 2L to 3L NC after elective right thoracentesis done today for recurrent right pleural effusion. A CXR revealed negative for pneumothorax. Small dependent and partially loculated RIGHT pleural effusion with proportional basilar atelectasis similar to the March 26, 2018 CT. Mild rightward mediastinal shift without change. Stigmata of advanced chronic obstructive pulmonary disease and emphysema. A EKG revealed NSR of 89 BPM, nl JACE CT, nl QTc, axis -2, no acute changes, negative ectopy and non-specific ST-T wave changes. A CTA Chest revealed no evidence for pulmonary embolism. Small predominant dependent partially loculated RIGHT pleural effusion with interval decrease compared with the March 26, 2018 exam reflecting thoracentesis today. Proportional atelectasis. Nodular RIGHT hemithorax pleural thickening most prominent at the level of the azygos esophageal recess. There is also soft tissue thickening of the axial interstitium of the RIGHT lung in the infrahilar region without significant interval change. Unchanged borderline enlarged RIGHT suprahilar and mildly enlarged RIGHT infrahilar lymph nodes. In the ED course, the patient recieved Morphine and Zofran and IV contrast for CTA. Pt's medications were reviewed this visit. During reevaluation, patient has no pain, no SOB. Discussed CTA. Patient is agreeable with admission. Patient care was discussed with hospitalist , Dr. Melendez, who accepts patient for admission. Patient will be admitted with a diagnosis of Recurrent pleural effusion on right, S/P thoracentesis, hypoxia and COPD. Patient is agreeable with this plan. - Diagnoses Differential Diagnosis/HQI/PQRI: Positive: COPD Exacerbation, Pneumonia, Pneumothorax, Pulmonary Embolism, Pulmonary Edema Provider Diagnoses: Recurrent pleural effusion on right, COPD (chronic obstructive pulmonary disease), S/P thoracentesis, Hypoxia - Physician Notifications Discussed Care of Patient With: Al Melendez Time Discussed With Above Provider: 19:45 Instructed by Provider To: Other - Accepts patient for admission. - Critical Care Time Critical Care Time: 30-74 min - 30 minutes, evalulation for hypoxia after thoracentesis. Discharge - Sign-Out/Discharge Documenting (check all that apply): Patient Departure - ADMIT - Discharge Plan Condition: Stable Disposition: ADMITTED TO [facility] - Billing Disposition and Condition Condition: STABLE Disposition: Admitted to [facility]
--- NOTE | 2018-04-10 19:31 | RAD ---
INDICATION: History of breast carcinoma. Loculated RIGHT pleural effusion. Hypoxia. Post RIGHT thoracentesis today. COMPARISON: March 26, 2018 CT. TECHNIQUE: Multidetector CT images were obtained from the lung apices to the upper abdomen with 51 mL Omnipaque 350 IV contrast. Pulmonary angiogram protocol. Multiplanar reformation including with maximum intensity projection. REPORT: Small predominant dependent partially loculated RIGHT pleural effusion with interval decrease compared with the March 26, 2018 exam. Proportional atelectasis. Advanced emphysema. Negative for pneumothorax. Nodular RIGHT hemithorax pleural thickening most prominent at the level of the azygos esophageal recess. There is also soft tissue thickening of the axial interstitium of the RIGHT lung in the infrahilar region without significant interval change. 1.0 cm short axis RIGHT suprahilar lymph node without significant change. 1.2 cm short axis RIGHT infrahilar lymph node without significant change. Negative for cardiomegaly or pericardial effusion. Atherosclerotic plaque of normal diameter thoracic aorta. No filling defects are identified from the main to the subsegmental pulmonary arteries to indicate presence of a pulmonary embolism. Images through the upper abdomen are remarkable for early pyelographic phase contrast at both kidneys and a 2.2 cm simple cortical cyst at the upper pole of the RIGHT kidney. Several healed RIGHT rib fractures. Moderate L1 and minimal L2 vertebral compression fractures are chronic. Negative for suspicious focal osseous lesions. IMPRESSION: #. No evidence for pulmonary embolism. #. Small predominant dependent partially loculated RIGHT pleural effusion with interval decrease compared with the March 26, 2018 exam reflecting thoracentesis today. Proportional atelectasis. #. Nodular RIGHT hemithorax pleural thickening most prominent at the level of the azygos esophageal recess. There is also soft tissue thickening of the axial interstitium of the RIGHT lung in the infrahilar region without significant interval change. #. Unchanged borderline enlarged RIGHT suprahilar and mildly enlarged RIGHT infrahilar lymph nodes.
--- NOTE | 2018-04-10 20:22 | HP ---
H&P (Free Text) History and Physical: PCP: [facility] Date/Time: 04/10/2018 0800 CC: SOB HPI: Mrs Aguayo is a 77YO female HX CAD/LA/stent, breast CA, COPD, HTN, HLD who was admitted to [facility] 03/12 - 03/16/2018 with discharge diagnoses of RLL lung mass with pleural effusion. She returned today for outpatient thoracentesis of recurrent pleural effusion and reported increased SOB. Post-procedure her oxygen requirement was noted to be 3L increased from her baseline of 2L and so she was referred to the ED for further evaluation and r/o pneumothorax. She denies cough, congestion, F/C, sweats, chest pain, N/V/D, abdominal pain, palpitations, light-headedness, or other issues. She states that since her discharge she has had gradually worsening SOB exacerbated by even slight activity and improved with rest. It was worse today than at any time since discharge. CXR and CTA chest are negative for acute finding, specifically negative for pneumothorax, PE, and pneumonia. She reportedly had 1.5L pleural fluid removed during the thoracentesis without improvement in her SOB. PMedHx RLL lung mass w/ associated pleural effusion undergoing workup CAD/LA/stent HX breast CA treated with lumpectomy & radioTX COPD HTN HLD GERD Ambulatory Orders Aspirin EC TAB* [Ecotrin EC Low Dose 81 MG*] 81 mg PO DAILY 03/12/18 Calcium Carbonate/Vitamin D3 [Calcium 500 + Vit D Caplet] 1 tab PO BID 03/12/18 Cyanocobalamin TAB* [Vitamin B12 TAB*] 1,000 mcg PO DAILY WITH MEAL 03/12/18 Gabapentin CAP(*) [Neurontin 100 mg CAP(*)] 100 mg PO DAILY PRN 03/12/18 Metoprolol Tartrate TAB* [Lopressor TAB*] 12.5 mg PO BID WITH MEALS 03/12/18 Multivitamins/Minerals TAB* [Theragran/minerals TAB*] 1 tab PO DAILY 03/12/18 Pantoprazole TAB (NF) [Protonix TAB (NF)] 40 mg PO QAM 03/12/18 Simvastatin TAB(NF) [Zocor 20 MG (NF)] 20 mg PO QPM 03/12/18 Albuterol HFA INHALER* [Ventolin HFA Inhaler*] 1 - 2 puff INH Q4H PRN #1 mdi Biotin 1 mg PO DAILY WITH MEAL 04/10/18 Clopidogrel TAB* [Plavix TAB*] 75 mg PO DAILY WITH MEAL 04/10/18 Allergies azithromycin [From Zithromax] Allergy (Verified 04/10/18 14:42) Unknown Reaction Details cefuroxime Allergy (Verified 04/10/18 14:42) Rash ciprofloxacin Allergy (Verified 04/10/18 14:42) Difficulty Breathing clindamycin Allergy (Verified 04/10/18 14:42) Unknown Reaction Details levofloxacin [From Levaquin] Allergy (Verified 04/10/18 14:42) Swelling Of Face,Lips,& Throat nitrofurantoin [From Macrobid] Allergy (Verified 04/10/18 14:42) Hives Penicillins Allergy (Verified 04/10/18 14:42) Hives cephalexin [From Keflex] Adverse Reaction (Verified 04/10/18 20:10) Flushing codeine Adverse Reaction (Verified 04/10/18 20:10) Altered Mental Status metoclopramide [From Reglan] Adverse Reaction (Verified 04/10/18 20:10) irritability sulfamethoxazole [From Bactrim] Adverse Reaction (Verified 04/10/18 20:10) Dizziness tetracycline Adverse Reaction (Verified 04/10/18 20:10) Yeast infection trimethoprim [From Bactrim] Adverse Reaction (Verified 04/10/18 20:10) Dizziness PSurgHx cardiac catheterization lumpectomy cholecystectomy SocHx: recently quit 1PPD cigarettes w/ >60PYHX, 2 glasses wine daily, no recreational drugs; lives alone with the kitchen downstairs and the bedroom/ bathroom upstairs; 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; full code status FamHx: Mother: passed 69YO 2nd unknown type cancer; Father: passed 61YO 2nd CAD ; Sister 1: passed 80s 2nd breast CA; Sister 2: passed 60s 2nd CVA; Sister 3: passed 70s 2nd unknown type cancer ROS: as above, otherwise reviewed and all were negative vitals: Vital Signs Temp 37.0 C 04/10/18 15:26 Pulse 87 04/10/18 19:06 Resp 13 04/10/18 19:06 BP 103/63 04/10/18 19:06 Pulse Ox 94 04/10/18 19:06 Intake & Output 04/09/18 04/10/18 04/10/18 23:59 11:59 23:59 Weight 44.452 kg Constitutional: NAD, normally developed, undernourished elderly white female HEENM: atraumatic; sclera/conjunctiva: anicteric/clear; hearing: clinically mildly decreased; oropharynx: clear, mucosa moist Neck: soft tissue: non-tender; thyroid: normal Pulmonary: diminished with basilar crackles R, diminished L, fair aeration, no accessory muscle use CV: RR/RR, normal S1S2, no carotid bruit, no jugular venous distention, 2+ B DP/ PT, no edema Abdominal: soft, non-distended, non-tender, no rebound/guarding/rigidity, normoactive bowel sounds, no hepatosplenomegaly or masses, no costovertebral angle tenderness Musculoskeletal: general: grossly intact Integumental: normal appearance and texture of exposed skin Psychiatric orientation: AA&O to PPS affect: calm mood: cooperative eye contact: good content: reliable responses: timely insight: fair to good Testing: Lab Results 04/10/18 04/10/18 04/10/18 Range/Units 16:42 16:42 16:42 WBC (3.5-10.8) 10^3/ul RBC (4.00-5.40) 10^6/ul Hgb (12.0-16.0) g/dl Hct (35-47) % MCV (80-97) fL MCH (27-31) pg MCHC (31-36) g/dl RDW (10.5-15) % Plt Count (150-450) 10^3/ul MPV (7.4-10.4) um3 Neut % (Auto) (38-83) % Lymph % (Auto) (25-47) % [place] % (Auto) (0-7) % Eos % (Auto) (0-6) % Baso % (Auto) (0-2) % Absolute Neuts (auto) (1.5-7.7) 10^3/ul Absolute Lymphs (auto) (1.0-4.8) 10^3/ul Absolute Monos (auto) (0-0.8) 10^3/ul Absolute Eos (auto) (0-0.6) 10^3/ul Absolute Basos (auto) (0-0.2) 10^3/ul Absolute Nucleated RBC 10^3/ul Nucleated RBC % INR (Anticoag Therapy) 1.01 (0.77-1.02) APTT 28.8 (26.0-36.3) seconds Sodium (135-145) mmol/L Potassium (3.5-5.0) mmol/L Chloride (101-111) mmol/L Carbon Dioxide (22-32) mmol/L Anion Gap (2-11) mmol/L BUN (6-24) mg/dL Creatinine (0.51-0.95) mg/dL Est GFR ( Amer) (>60) Est GFR (Non-Af Amer) (>60) BUN/Creatinine Ratio (8-20) Glucose (70-100) mg/dL Lactic Acid 0.5 (0.5-2.0) mmol/L Calcium (8.6-10.3) mg/dL Total Bilirubin (0.2-1.0) mg/dL AST (13-39) U/L ALT (7-52) U/L Alkaline Phosphatase (34-104) U/L Total Creatine Kinase (10-223) U/L CK-MB (CK-2) (0.6-6.3) ng/mL Troponin I (<0.04) ng/mL C-Reactive Protein (<8.01) mg/L B-Natriuretic Peptide 78 ( - 100) pg/mL Total Protein (6.4-8.9) g/dL Albumin (3.2-5.2) g/dL Globulin (2-4) g/dL Albumin/Globulin Ratio (1-3) Procalcitonin (<0.6) ng/mL 04/10/18 04/10/18 04/10/18 Range/Units 16:43 16:43 16:43 WBC 12.2 H (3.5-10.8) 10^3/ul RBC 3.89 L (4.00-5.40) 10^6/ul Hgb 12.5 (12.0-16.0) g/dl Hct 38 (35-47) % MCV 97 (80-97) fL MCH 32 H (27-31) pg MCHC 33 (31-36) g/dl RDW 13 (10.5-15) % Plt Count 349 (150-450) 10^3/ul MPV 8.0 (7.4-10.4) um3 Neut % (Auto) 75.2 (38-83) % Lymph % (Auto) 10.4 L (25-47) % [place] % (Auto) 12.9 H (0-7) % Eos % (Auto) 1.1 (0-6) % Baso % (Auto) 0.4 (0-2) % Absolute Neuts (auto) 9.2 H (1.5-7.7) 10^3/ul Absolute Lymphs (auto) 1.3 (1.0-4.8) 10^3/ul Absolute Monos (auto) 1.6 H (0-0.8) 10^3/ul Absolute Eos (auto) 0.1 (0-0.6) 10^3/ul Absolute Basos (auto) 0.1 (0-0.2) 10^3/ul Absolute Nucleated RBC 0 10^3/ul Nucleated RBC % 0 INR (Anticoag Therapy) (0.77-1.02) APTT (26.0-36.3) seconds Sodium 135 (135-145) mmol/L Potassium 3.8 (3.5-5.0) mmol/L Chloride 96 L (101-111) mmol/L Carbon Dioxide 30 (22-32) mmol/L Anion Gap 9 (2-11) mmol/L BUN 11 (6-24) mg/dL Creatinine 0.55 (0.51-0.95) mg/dL Est GFR ( Amer) 129.3 (>60) Est GFR (Non-Af Amer) 106.9 (>60) BUN/Creatinine Ratio 20.0 (8-20) Glucose 119 H (70-100) mg/dL Lactic Acid (0.5-2.0) mmol/L Calcium 9.3 (8.6-10.3) mg/dL Total Bilirubin 0.30 (0.2-1.0) mg/dL AST 18 (13-39) U/L ALT 9 (7-52) U/L Alkaline Phosphatase 75 (34-104) U/L Total Creatine Kinase 35 (10-223) U/L CK-MB (CK-2) 2.2 (0.6-6.3) ng/mL Troponin I 0.00 (<0.04) ng/mL C-Reactive Protein 79.57 H (<8.01) mg/L B-Natriuretic Peptide ( - 100) pg/mL Total Protein 6.5 (6.4-8.9) g/dL Albumin 3.1 L (3.2-5.2) g/dL Globulin 3.4 (2-4) g/dL Albumin/Globulin Ratio 0.9 L (1-3) Procalcitonin < 0.1 (<0.6) ng/mL ECG, personally reviewed: NSR rate 89, no ischemia CXR, personally reviewed: IMPRESSION: #. Negative for pneumothorax. #. Small dependent and partially loculated RIGHT pleural effusion with proportional basilar atelectasis similar to the March 26, 2018 CT. Mild rightward mediastinal shift without change. #. Stigmata of advanced chronic obstructive pulmonary disease and emphysema. CTA chest, personally reviewed: IMPRESSION: #. No evidence for pulmonary embolism. #. Small predominant dependent partially loculated RIGHT pleural effusion with interval decrease compared with the March 26, 2018 exam reflecting thoracentesis today. Proportional atelectasis. #. Nodular RIGHT hemithorax pleural thickening most prominent at the level of the azygos esophageal recess. There is also soft tissue thickening of the axial interstitium of the RIGHT lung in the infrahilar region without significant interval change. #. Unchanged borderline enlarged RIGHT suprahilar and mildly enlarged RIGHT infrahilar lymph nodes. Impression: 77F HX CAD/LA/stent, breast CA, COPD, HTN, HLD presents with gradually worsening SOB since D/C 03/16 which I suspect is her baseline COPD as no acute findings are present DIAGNOSIS & PLAN Primary SOB in setting of COPD not in exacerbation : trend WBC & temperature curves : continue albuterol : add mometasone & tiotropium : consider pulmonology consult in AM : supplemental oxygen (her new baseline may be 3L) Secondary RLL lung mass w/ associated pleural effusion undergoing workup HX breast CA treated with lumpectomy & radioTX : continue surveillance outpatient CAD/LA/stent : continue aspirin & clopidogrel HTN : continue metoprolol HLD : continue simvastatin GERD : continue pantoprazole Admission Rational: observation for SOB DVTp: SCDs & heparin SQ Code Status: full HCP: Jefferson freedman [phone]
[2018-04-10] MEDS ORDERED: Gabapentin CAP(*) 100 MG PO PRN (22:57)
[2018-04-10] MEDS ORDERED: Albuterol HFA INHALER* 8 gm MDI INH PRN (22:57)
[2018-04-10] MEDS ORDERED: Ondansetron ODT TAB* 4 MG PO PRN (22:59)
[2018-04-10] MEDS ORDERED: Melatonin 3 MG TAB PO PRN (22:59)
[2018-04-11 00:58] LABS: Urine Appearance Clear; Urine Blood Negative (Negative); Urine Color Yellow; Urine Ketones 1+ (Negative); Urine Protein Negative (Negative); Urine Specific Gravity 1.059 (1.010-1.030); Urine Urobilinogen Negative (Negative)
[2018-04-11 03:01] LABS: ABS Basophils 0.1 10^3/ul (0-0.2); ABS Eosinophils 0.4 10^3/ul (0-0.6); ABS Monocytes 1.5 10^3/ul (0-0.8); ABS Neutrophils 8.4 10^3/ul (1.5-7.7); ABS Nucleated RBC 0 10^3/ul; Eosinophil % 3.2 % (0-6); Hematocrit 36 % (35-47); Hemoglobin 11.8 g/dl (12.0-16.0); Lymphocyte % 8.7 % (25-47); Mean Corpuscular HGB Conc 33 g/dl (31-36); Mean Corpuscular Hemoglobin 32 pg (27-31); Mean Corpuscular Volume 97 fL (80-97); Nucleated Red Blood Cells % 0; Platelet Count 331 10^3/ul (150-450); Red Blood Count 3.71 10^6/ul (4.00-5.40); Red Cell Distribution Width 14 % (10.5-15); White Blood Count 11.3 10^3/ul (3.5-10.8)
[2018-04-11 03:15] LABS: INR 1.03 (0.77-1.02)
[2018-04-11 03:16] LABS: EGFR Non-African American 93.1 (>60)
[2018-04-11] MEDS: Mometasone/Formoter 200/5 MDI INH SCH ×3 (05:02→19:49)
[2018-04-11] MEDS ORDERED: Cetirizine* 10 MG TAB PO ONE (05:30)
[2018-04-11] MEDS: Acetaminophen TAB* 325 MG PO PRN ×2 (06:25→19:32)
[2018-04-11 06:53] LABS: Hematocrit 36 % (35-47); Hemoglobin 12.2 g/dl (12.0-16.0); Mean Corpuscular HGB Conc 34 g/dl (31-36); Mean Corpuscular Hemoglobin 33 pg (27-31); Mean Corpuscular Volume 97 fL (80-97); Mean Platelet Volume 8.2 um3 (7.4-10.4); Platelet Count 356 10^3/ul (150-450); Red Blood Count 3.72 10^6/ul (4.00-5.40); Red Cell Distribution Width 14 % (10.5-15); White Blood Count 10.6 10^3/ul (3.5-10.8)
[2018-04-11] MEDS: Tiotropium CAP.INH* CAP.INH/18 MCG (USE ORDER SET !) INH SCH (07:37)
[2018-04-11] MEDS ORDERED: Clopidogrel TAB* 75 MG PO SCH (08:30)
[2018-04-11] MEDS ORDERED: Spiriva Inhaler DEVICE* 1 EACH DEVICE INH ONE (09:00)
[2018-04-11] MEDS: Docusate CAP* 100 MG PO SCH ×2 (10:01→19:33)
[2018-04-11] MEDS: CMCS: Pantoprazole TAB (NF) 40 MG TAB PO SCH (10:01)
[2018-04-11] MEDS: Metoprolol Tartrate TAB* 25 MG PO SCH ×2 (10:01→17:44)
[2018-04-11] MEDS: Aspirin EC TAB* 81 MG TAB.EC PO SCH (10:03)
[2018-04-11] MEDS ORDERED: Albuterol/Ipratropium NEB.SOL* Albuterol 2.5 MG/Ipratropium 0.5 MG 3 ML INH PRN (10:17)
[2018-04-11] MEDS: Fluticasone NASAL SPRAY 50MCG* 16 gm SPRAY BTL BOTH NARES SCH (12:18)
--- NOTE | 2018-04-11 17:03 | PN ---
Subjective Date of Service: 04/11/18 Interval History: Patient feels SOB somewhat improved overnight. States she has pain in her side and has been having nasal symptoms. Patient states she has been taking neosynephrine nasal spray daily for weeks. Denies CP, N/V, abdominal pain, diarrhea, dysuria, dizziness on standing. States he SOB had been getting much worse for weeks before she came in for thoracentesis. Family History: Unchanged from Admission Social History: Unchanged from Admission Past Medical History: Unchanged from Admission Objective Active Medications: Acetaminophen (Tylenol Tab*) 650 mg PO Q6H PRN PRN Reason: FEVER/PAIN Last Admin: 04/11/18 06:25 Dose: 650 mg Albuterol (Ventolin Hfa Inhaler*) 2 puff INH Q4H PRN PRN Reason: SOB/WHEEZING Albuterol/Ipratropium (Duoneb (Albuterol 2.5 Mg/Ipratropium 0.5 Mg)) 1 neb INH Q4H PRN PRN Reason: SOB/WHEEZING Aspirin (Aspirin Ec Tab*) 81 mg PO DAILY [facility] Last Admin: 04/11/18 10:03 Dose: 81 mg Atorvastatin Calcium (Lipitor*) 10 mg PO QPM [facility] Clopidogrel Bisulfate (Plavix Tab*) 75 mg PO DAILY WITH MEAL [facility] Last Admin: 04/11/18 10:01 Dose: 75 mg Docusate Sodium (Colace Cap*) 200 mg PO BID [facility] Last Admin: 04/11/18 10:01 Dose: 200 mg Fluticasone Propionate (Flonase Nasal Benedict 50mcg*) 2 spray BOTH NARES DAILY [facility] Last Admin: 04/11/18 12:18 Dose: 2 spray Gabapentin (Neurontin Cap(*)) 100 mg PO DAILY PRN PRN Reason: NEUROPATHY Heparin Sodium (Porcine) (Heparin Vial(*)) 5,000 units SUBCUT Q8HR [facility] Melatonin (Melatonin) 3 mg PO BEDTIME PRN; Protocol PRN Reason: Sleep Metoprolol Tartrate (Lopressor Tab*) 12.5 mg PO BID WITH MEALS [facility] Last Admin: 04/11/18 10:01 Dose: 12.5 mg Mometasone Furoate/Formoterol Fumar (Dulera 200/5 Mdi*) 2 puff INH BID [facility] Last Admin: 04/11/18 07:37 Dose: 2 puff Ondansetron HCl (Zofran Odt Tab*) 4 mg PO Q6H PRN PRN Reason: n/v Pantoprazole Sodium (Protonix Tab (Nf)) 40 mg PO QAM [facility] Last Admin: 04/11/18 10:01 Dose: 40 mg Tiotropium [place] (Spiriva Cap.Inh*) 1 cap INH DAILY [facility] Last Admin: 04/11/18 07:37 Dose: 1 cap Vital Signs - 8 hr 04/11/18 04/11/18 10:53 15:20 Temperature 97.5 F 98.9 F Pulse Rate 86 73 Respiratory 18 14 Rate Blood Pressure 94/58 96/66 (mmHg) O2 Sat by Pulse 95 97 Oximetry Oxygen Devices in Use Now: Nasal Cannula Appearance: Patient is a 77yo female who appears stated age and is sitting in the bed in [facility]. Eyes: No Scleral Icterus, PERRLA Ears/Nose/Mouth/Throat: NL Teeth, Lips, Gums, Clear Oropharnyx, Mucous Membranes Moist Neck: NL Appearance and Movements; NL JVP, Trachea Midline Respiratory: Symmetrical Chest Expansion and Respiratory Effort, Clear to Auscultation, - - Diminished. Cardiovascular: NL Sounds; No Murmurs; No JVD, RRR, No Edema Abdominal: NL Sounds; No Tenderness; No Distention, No Hepatosplenomegaly Lymphatic: No Cervical Adenopathy Extremities: No Edema, No Clubbing, Cyanosis Skin: No Rash or Ulcers, No Nodules or Sclerosis Neurological: Alert and Oriented x 3, NL Sensation, NL Muscle Strength and Tone , - - CN II-XII intact. Result Diagrams: 04/11/18 06:33 04/11/18 02:54 Additional Lab and Data: Lab Results 04/10/18 04/10/18 04/10/18 Range/Units 16:42 16:42 16:42 WBC (3.5-10.8) 10^3/ul RBC (4.00-5.40) 10^6/ul Hgb (12.0-16.0) g/dl Hct (35-47) % MCV (80-97) fL MCH (27-31) pg MCHC (31-36) g/dl RDW (10.5-15) % Plt Count (150-450) 10^3/ul MPV (7.4-10.4) um3 Neut % (Auto) (38-83) % Lymph % (Auto) (25-47) % [place] % (Auto) (0-7) % Eos % (Auto) (0-6) % Baso % (Auto) (0-2) % Absolute Neuts (auto) (1.5-7.7) 10^3/ul Absolute Lymphs (auto) (1.0-4.8) 10^3/ul Absolute Monos (auto) (0-0.8) 10^3/ul Absolute Eos (auto) (0-0.6) 10^3/ul Absolute Basos (auto) (0-0.2) 10^3/ul Absolute Nucleated RBC 10^3/ul Nucleated RBC % INR (Anticoag Therapy) 1.01 (0.77-1.02) APTT 28.8 (26.0-36.3) seconds Sodium (135-145) mmol/L Potassium (3.5-5.0) mmol/L Chloride (101-111) mmol/L Carbon Dioxide (22-32) mmol/L Anion Gap (2-11) mmol/L BUN (6-24) mg/dL Creatinine (0.51-0.95) mg/dL Est GFR ( Amer) (>60) Est GFR (Non-Af Amer) (>60) BUN/Creatinine Ratio (8-20) Glucose (70-100) mg/dL Lactic Acid 0.5 (0.5-2.0) mmol/L Calcium (8.6-10.3) mg/dL Total Bilirubin (0.2-1.0) mg/dL AST (13-39) U/L ALT (7-52) U/L Alkaline Phosphatase (34-104) U/L Total Creatine Kinase (10-223) U/L CK-MB (CK-2) (0.6-6.3) ng/mL Troponin I (<0.04) ng/mL C-Reactive Protein (<8.01) mg/L B-Natriuretic Peptide 78 ( - 100) pg/mL Total Protein (6.4-8.9) g/dL Albumin (3.2-5.2) g/dL Globulin (2-4) g/dL Albumin/Globulin Ratio (1-3) 04/10/18 04/10/18 Range/Units 16:43 16:43 WBC 12.2 H (3.5-10.8) 10^3/ul RBC 3.89 L (4.00-5.40) 10^6/ul Hgb 12.5 (12.0-16.0) g/dl Hct 38 (35-47) % MCV 97 (80-97) fL MCH 32 H (27-31) pg MCHC 33 (31-36) g/dl RDW 13 (10.5-15) % Plt Count 349 (150-450) 10^3/ul MPV 8.0 (7.4-10.4) um3 Neut % (Auto) 75.2 (38-83) % Lymph % (Auto) 10.4 L (25-47) % [place] % (Auto) 12.9 H (0-7) % Eos % (Auto) 1.1 (0-6) % Baso % (Auto) 0.4 (0-2) % Absolute Neuts (auto) 9.2 H (1.5-7.7) 10^3/ul Absolute Lymphs (auto) 1.3 (1.0-4.8) 10^3/ul Absolute Monos (auto) 1.6 H (0-0.8) 10^3/ul Absolute Eos (auto) 0.1 (0-0.6) 10^3/ul Absolute Basos (auto) 0.1 (0-0.2) 10^3/ul Absolute Nucleated RBC 0 10^3/ul Nucleated RBC % 0 INR (Anticoag Therapy) (0.77-1.02) APTT (26.0-36.3) seconds Sodium 135 (135-145) mmol/L Potassium 3.8 (3.5-5.0) mmol/L Chloride 96 L (101-111) mmol/L Carbon Dioxide 30 (22-32) mmol/L Anion Gap 9 (2-11) mmol/L BUN 11 (6-24) mg/dL Creatinine 0.55 (0.51-0.95) mg/dL Est GFR ( Amer) 129.3 (>60) Est GFR (Non-Af Amer) 106.9 (>60) BUN/Creatinine Ratio 20.0 (8-20) Glucose 119 H (70-100) mg/dL Lactic Acid (0.5-2.0) mmol/L Calcium 9.3 (8.6-10.3) mg/dL Total Bilirubin 0.30 (0.2-1.0) mg/dL AST 18 (13-39) U/L ALT 9 (7-52) U/L Alkaline Phosphatase 75 (34-104) U/L Total Creatine Kinase 35 (10-223) U/L CK-MB (CK-2) 2.2 (0.6-6.3) ng/mL Troponin I 0.00 (<0.04) ng/mL C-Reactive Protein 79.57 H (<8.01) mg/L B-Natriuretic Peptide ( - 100) pg/mL Total Protein 6.5 (6.4-8.9) g/dL Albumin 3.1 L (3.2-5.2) g/dL Globulin 3.4 (2-4) g/dL Albumin/Globulin Ratio 0.9 L (1-3) Assess/Plan/Problems-Billing Assessment: Patient is a 77yo female with a PMH for breast cancer, COPD with chronic hypoxic respiratory failure, CAD, SC, HTN, here with worsened SOB without pneumothorax and with positive cytology for metastatic carcinoma. - Patient Problems (1) Pleural effusion Current Visit: Yes Status: Acute Code(s): J90 - PLEURAL EFFUSION, NOT ELSEWHERE CLASSIFIED SNOMED Code(s): 39047735 Comment: Unilateral pleural effusion. S/P thoracentesis x2. Malignant cells on most recent pleural fluid analysis. Pulmonology and Oncology input pending. Primary source unknown. (2) SOB (shortness of breath) Current Visit: No Status: Acute Code(s): R06.02 - SHORTNESS OF BREATH SNOMED Code(s): 666950387 Comment: With increased need for O2 in ED. Now weaned down to 2L which is home dose. Increased for several weeks before thoracentesis. Improved this AM. Not back to baseline. CTA negative for PE, pneumonia and pneumothrax. New diagnosis lung cancer. Start COPD controller treatment. (3) COPD (chronic obstructive pulmonary disease) Current Visit: No Status: Acute Code(s): J44.9 - CHRONIC OBSTRUCTIVE PULMONARY DISEASE, UNSPECIFIED SNOMED Code(s): 48139276 Comment: Without exacerbation. Start on Controller medications. Appreciate pulmonology input. (4) HLD (hyperlipidemia) Current Visit: No Status: Acute Code(s): E78.5 - HYPERLIPIDEMIA, UNSPECIFIED SNOMED Code(s): 08771051 Comment: Continue statin. (5) Hx of coronary artery disease Current Visit: No Status: Acute Code(s): Z86.79 - PERSONAL HISTORY OF OTHER DISEASES OF THE CIRCULATORY SYSTEM SNOMED Code(s): 363659909 Comment: SC with stent placement on 2011 with stent placement. Recent D/C of Plavix. No chest pain (6) HTN (hypertension) Current Visit: No Status: Chronic Code(s): I10 - ESSENTIAL (PRIMARY) HYPERTENSION SNOMED Code(s): 63107292 Comment: [place] hypotensive. Decrease Metoprolol. (7) DVT prophylaxis Current Visit: No Status: Acute Code(s): QMD4540 - SNOMED Code(s): 247245283 (8) Full code status Current Visit: No Status: Acute Code(s): Z78.9 - OTHER SPECIFIED HEALTH STATUS SNOMED Code(s): 925120019 Comment: HSQ Status and Disposition: Observation.
[2018-04-11] MEDS ORDERED: Saline NASAL DROPS 0.65%* 1 DROP BTL BOTH NARES PRN (17:07)
[2018-04-11] MEDS: Atorvastatin* 10 MG TAB PO SCH (17:44)
[2018-04-11] MEDS: Heparin VIAL(*) 5000 UNITS/ML VIAL (FIVE THOUSAND) SUBCUT SCH (20:43)
--- NOTE | 2018-04-11 22:18 | CONS ---
PULMONARY CONSULTATION REPORT: DATE OF CONSULT: 04/11/18 CONSULTATION REQUESTED BY: DUSTIN Gonsalves REASON FOR CONSULT: Evaluation of shortness of breath and pleural effusion. HISTORY OF PRESENT ILLNESS: The patient is a 77-year-old female with prior history of breast cancer, known to me from recent outpatient evaluation for pleural effusion. The patient was scheduled for outpatient thoracentesis with removal of 1.5 L of pleural fluid. The patient was also scheduled for pleural biopsy. The patient has been having worsening shortness of breath and hypoxemia noted recently. She was initiated on O2 supplementation, was on 2 L per minute at home 27/03, which was initiated recently. The patient postprocedure had worsening shortness of breath and also had worsening hypoxemia. She was sent into the emergency room for further evaluation. The patient continues to require O2 supplementation, has been dyspneic with minimal exertion. The patient reported slight benefit from removal of the fluid. She recently was hospitalized prior to this admission from 03/12/18 to 03/16/18, at which time she was noted to have right lower lobe lung mass, loculated pleural effusion, pleural thickening. Thoracentesis at that time has been negative for malignant cells. The patient had PET scan, which was personally reviewed by me. The patient noted to have evidence of PET positivity in right lower lobe area medially, in the loculated pleural fluid with linear uptake in the pleural area on the right side. The patient also with significantly enlarged subcarinal node and right suprahilar node. The patient also with increased uptake in the azygoesophageal recess. The patient was seen by Oncology as outpatient. The patient had repeat CTA post thoracentesis to rule out pulmonary embolism. There was no evidence of pulmonary embolism. The patient with slightly decreased partially loculated right pleural effusion post thoracentesis. The patient with mild atelectasis of the right lower lobe area. The patient also with prominent suprahilar and infrahilar lymph nodes. PAST MEDICAL HISTORY: 1. Breast cancer, treated with lumpectomy and radiation. 2. Coronary artery disease and ID, status post stent placement. 3. COPD. 4. Hypertension. 5. Dyslipidemia. 6. GERD. 7. Right lower lobe lung mass, being worked up. PAST SURGICAL HISTORY: 1. Cardiac catheterization. 2. Lumpectomy. 3. Cholecystectomy. MEDICATIONS AT HOME: 1. Aspirin. 2. Calcium carbonate. 3. Cyanocobalamin. 4. Gabapentin. 5. Metoprolol. 6. Multivitamin. 7. Pantoprazole. 8. Simvastatin. 9. Albuterol. 10. Biotin. 11. Plavix. ALLERGIES: AZITHROMYCIN, CEFUROXIME, CIPROFLOXACIN, CLINDAMYCIN, LEVOFLOXACIN, NITROFURANTOIN, PENICILLIN, CEPHALEXIN, CODEINE, METOCLOPRAMIDE, BACTRIM, TETRACYCLINE. FAMILY HISTORY: Mother with unknown cancer. Father at age 61 secondary to coronary artery disease. History of breast cancer in the sister. SOCIAL HISTORY: Former smoker with significant smoking history, quit recently, was 1 pack per day smoker for more than 60 years, drinks 2 glasses of wine daily. No recreational drug abuse. REVIEW OF SYSTEMS: All 14 systems reviewed and as per HPI. PHYSICAL EXAM: The patient is lying in bed, in no apparent distress. Vital Signs: Temperature 98.9, pulse 73 beats per minute, respiratory rate 14 per minute, O2 saturation 97%, blood pressure 96/66. HEENT: Pupils equal, reactive to light. Lungs: Diminished air entry at right base, clear to auscultation on the left side. Cardiovascular: S1, S2 present, regular. Abdomen: Bowel sounds present. Nontender, nondistended. Extremities: Normal range of motion. Neuro: No focal deficits. DIAGNOSTIC STUDIES/LAB DATA: WBC 10.6, hemoglobin 12.2, hematocrit 36, platelet count 356. Sodium 135,, chloride 96, bicarb 30, BUN 11, creatinine 0.55. Chest x-ray and CT as described above in HPI. IMPRESSION AND RECOMMENDATIONS: 77-year-old female with significant smoking history with history of chronic obstructive pulmonary disease, recently found to have lung mass, loculated pleural effusion, pleural thickening and increased uptake on PET scan in the pleural with mediastinal and hilar lymphadenopathy. The patient had thoracentesis on prior admission, which was negative for malignant cells. The patient was scheduled for repeat thoracentesis and pleural biopsy. Cytology from repeat thoracentesis was positive for malignant cells, primary unknown at this time, pending further staining. Pleural biopsy results pending at this time. The patient with significant hypoxemia and shortness of breath likely secondary to poor reserve to being with superimposed with effusion. The patient had 1.5 L of pleural fluid removed. She has history of breast cancer and unclear at this time if it is recurrence of cancer, metastatic now to the lungs causing pleural effusion or primary lung cancer. The patient is saturating in the high 90s while on O2 supplementation at 1 to 2 L at this time. The patient reports feeling much better this morning. Given that it is malignant effusion and possibility of its recurrence, she would benefit from PleurX catheter placement. Appreciate Oncology input in this regard. Above discussed with DUSTIN Gonsalves; the patient and her son at bedside. Thank you for allowing me to participate in the care of your patient. [id number]/[facility] #: [id number] ERIC
[2018-04-12] MEDS: Acetaminophen TAB* 325 MG PO PRN ×2 (03:22→15:05)
[2018-04-12] MEDS: Heparin VIAL(*) 5000 UNITS/ML VIAL (FIVE THOUSAND) SUBCUT SCH ×3 (05:39→20:38)
[2018-04-12 07:29] LABS: Hematocrit 34 % (35-47); Hemoglobin 11.2 g/dl (12.0-16.0); Mean Corpuscular HGB Conc 33 g/dl (31-36); Mean Corpuscular Hemoglobin 32 pg (27-31); Mean Corpuscular Volume 98 fL (80-97); Mean Platelet Volume 8.6 um3 (7.4-10.4); Platelet Count 330 10^3/ul (150-450); Red Blood Count 3.45 10^6/ul (4.00-5.40); Red Cell Distribution Width 14 % (10.5-15); White Blood Count 10.4 10^3/ul (3.5-10.8)
[2018-04-12 07:38] LABS: ABS Basophils 0 10^3/ul (0-0.2); ABS Eosinophils 0.5 10^3/ul (0-0.6); ABS Lymphocytes 1.6 10^3/ul (1.0-4.8); ABS Monocytes 1.6 10^3/ul (0-0.8); ABS Neutrophils 6.7 10^3/ul (1.5-7.7); ABS Nucleated RBC 0 10^3/ul; Eosinophil % 4.6 % (0-6); Lymphocyte % 15.7 % (25-47); Nucleated Red Blood Cells % 0.1
[2018-04-12 07:42] LABS: EGFR Non-African American 109.2 (>60)
[2018-04-12] MEDS: Tiotropium CAP.INH* CAP.INH/18 MCG (USE ORDER SET !) INH SCH (07:58)
[2018-04-12] MEDS: Mometasone/Formoter 200/5 MDI INH SCH ×2 (07:59→19:27)
[2018-04-12] MEDS ORDERED: Magnesium Sulf 4 GM/100 ML IV* 4,000 MG/100 ML BAG IVPB ONE (08:39)
[2018-04-12] MEDS: Aspirin EC TAB* 81 MG TAB.EC PO SCH (10:27)
[2018-04-12] MEDS: Cetirizine* 10 MG TAB PO SCH ×2 (10:27→10:33)
[2018-04-12] MEDS: CMCS: Pantoprazole TAB (NF) 40 MG TAB PO SCH (10:27)
[2018-04-12] MEDS: Docusate CAP* 100 MG PO SCH ×2 (10:28→20:38)
[2018-04-12] MEDS: Metoprolol Tartrate TAB* 25 MG PO SCH ×2 (10:28→18:19)
[2018-04-12] MEDS: Fluticasone NASAL SPRAY 50MCG* 16 gm SPRAY BTL BOTH NARES SCH (10:29)
--- NOTE | 2018-04-12 10:31 | PN ---
Progress Note - Progress Note Date of Service: 04/12/18 SOAP: Subjective: patient is a bit of a difficult historian, but reports after much prompting that she DID actually get symptomatic relief from her most recent thoracentesis as she is now able to ambulate withOUT SOB and is weaned down on O2. Understands that she has cancer and is optimistic/anxious to hear options. feels more at peace now knowing that she can live with son if necessary. no constipation despite narcotics. pain dull, persistent, but fairly well controlled on right chest and RUQ. Objective: Vital Signs Temp Pulse Resp BP Pulse Ox 97.7 F 69 18 115/62 93 04/12/18 07:29 04/12/18 08:02 04/12/18 08:02 04/12/18 07:29 04/12/18 08:02 cacehctic in nad perr eomi op moist dec bs throughout right lung field soft nt +Bs no le edema A+O x 3, nonfocal neurological exam Laboratory Results - last 24 hr 04/12/18 04/12/18 06:41 06:41 WBC 10.4 RBC 3.45 L Hgb 11.2 L Hct 34 L MCV 98 H MCH 32 H MCHC 33 RDW 14 Plt Count 330 MPV 8.6 Neut % (Auto) 63.9 Lymph % (Auto) 15.7 L [place] % (Auto) 15.4 H Eos % (Auto) 4.6 Baso % (Auto) 0.4 Absolute Neuts (auto) 6.7 Absolute Lymphs (auto) 1.6 Absolute Monos (auto) 1.6 H Absolute Eos (auto) 0.5 Absolute Basos (auto) 0 Absolute Nucleated RBC 0 Nucleated RBC % 0.1 Sodium 139 Potassium 3.7 Chloride 99 L Carbon Dioxide 33 H Anion Gap 7 BUN 12 Creatinine 0.54 Est GFR ( Amer) 132.1 Est GFR (Non-Af Amer) 109.2 BUN/Creatinine Ratio 22.2 H Glucose 89 Calcium 8.7 Magnesium 1.2 L Acetaminophen (Tylenol Tab*) 650 mg PO Q6H PRN PRN Reason: FEVER/PAIN Last Admin: 04/12/18 03:22 Dose: 650 mg Albuterol (Ventolin Hfa Inhaler*) 2 puff INH Q4H PRN PRN Reason: SOB/WHEEZING Albuterol/Ipratropium (Duoneb (Albuterol 2.5 Mg/Ipratropium 0.5 Mg)) 1 neb INH Q4H PRN PRN Reason: SOB/WHEEZING Aspirin (Aspirin Ec Tab*) 81 mg PO DAILY [facility] Last Admin: 04/11/18 10:03 Dose: 81 mg Atorvastatin Calcium (Lipitor*) 10 mg PO QPM [facility] Last Admin: 04/11/18 17:44 Dose: 10 mg Cetirizine HCl (Zyrtec*) 10 mg PO DAILY [facility] Docusate Sodium (Colace Cap*) 200 mg PO BID [facility] Last Admin: 04/11/18 19:33 Dose: 200 mg Fluticasone Propionate (Flonase Nasal [place] 50mcg*) 2 spray BOTH NARES DAILY [facility] Last Admin: 04/11/18 12:18 Dose: 2 spray Gabapentin (Neurontin Cap(*)) 100 mg PO DAILY PRN PRN Reason: NEUROPATHY Heparin Sodium (Porcine) (Heparin Vial(*)) 5,000 units SUBCUT Q8HR [facility] Last Admin: 04/12/18 05:39 Dose: 5,000 units Magnesium Sulfate (Magnesium Sulf 4 Gm/100 Ml Iv*) 4,000 mg in 100 mls @ 33.333 mls/hr IVPB ONCE ONE Stop: 04/12/18 11:38 Melatonin (Melatonin) 3 mg PO BEDTIME PRN; Protocol PRN Reason: Sleep Metoprolol Tartrate (Lopressor Tab*) 12.5 mg PO BID WITH MEALS [facility] Last Admin: 04/11/18 17:44 Dose: 12.5 mg Mometasone Furoate/Formoterol Fumar (Dulera 200/5 Mdi*) 2 puff INH BID [facility] Last Admin: 04/12/18 07:59 Dose: 2 puff Ondansetron HCl (Zofran Odt Tab*) 4 mg PO Q6H PRN PRN Reason: n/v Pantoprazole Sodium (Protonix Tab (Nf)) 40 mg PO QAM [facility] Last Admin: 04/11/18 10:01 Dose: 40 mg Sodium Chloride (Sodium Chloride 0.65% Nasal Drops*) 1 drop BOTH NARES Q4H PRN PRN Reason: DRY SKIN Tiotropium [place] (Spiriva Cap.Inh*) 1 cap INH DAILY [facility] Last Admin: 04/12/18 07:58 Dose: 1 cap Assessment: 77 yo F w PMH of T1bN0 triple positive BCA (finished horonal Tx in 2011), + tobacco use, now with malignant carcinoma in her lung, with origin studies pending. We discussed this at length. We discussed that given the recurrence of her fluid over 6 weeks, and symptomatic improvement with thoracentesis, it would be reasonable to place a pleurex catheter. Hopefully if there is a reasonable treatment option for her cancer, and she responds, we will be able to remove this in the future. We discussed the palliative nature of therapy moving forward, but that depending on the type of cancer there may be very reasonable, well tolerated options. We should hopefully have more information on her tumor later today or tomorrow.
--- NOTE | 2018-04-12 13:43 | PN ---
Subjective Date of Service: 04/12/18 Interval History: Patient continues to feel better today. No SOB with ambulating. Persistent sharp pain in right chest. Pain improving. Improved nasal congestion. Denies F/C , N/V, abdominal pain, diarrhea, dizziness, Or other pain. Family History: Unchanged from Admission Social History: Unchanged from Admission Past Medical History: Unchanged from Admission Objective Active Medications: Acetaminophen (Tylenol Tab*) 650 mg PO Q6H PRN PRN Reason: FEVER/PAIN Last Admin: 04/12/18 03:22 Dose: 650 mg Albuterol (Ventolin Hfa Inhaler*) 2 puff INH Q4H PRN PRN Reason: SOB/WHEEZING Albuterol/Ipratropium (Duoneb (Albuterol 2.5 Mg/Ipratropium 0.5 Mg)) 1 neb INH Q4H PRN PRN Reason: SOB/WHEEZING Aspirin (Aspirin Ec Tab*) 81 mg PO DAILY [facility] Last Admin: 04/12/18 10:27 Dose: 81 mg Atorvastatin Calcium (Lipitor*) 10 mg PO QPM [facility] Last Admin: 04/11/18 17:44 Dose: 10 mg Cetirizine HCl (Zyrtec*) 10 mg PO DAILY [facility] Last Admin: 04/12/18 10:33 Dose: Not Given Docusate Sodium (Colace Cap*) 200 mg PO BID [facility] Last Admin: 04/12/18 10:28 Dose: 200 mg Fluticasone Propionate (Flonase Nasal [place] 50mcg*) 2 spray BOTH NARES DAILY [facility] Last Admin: 04/12/18 10:29 Dose: 2 spray Gabapentin (Neurontin Cap(*)) 100 mg PO DAILY PRN PRN Reason: NEUROPATHY Heparin Sodium (Porcine) (Heparin Vial(*)) 5,000 units SUBCUT Q8HR [facility] Last Admin: 04/12/18 05:39 Dose: 5,000 units Melatonin (Melatonin) 3 mg PO BEDTIME PRN; Protocol PRN Reason: Sleep Metoprolol Tartrate (Lopressor Tab*) 12.5 mg PO BID WITH MEALS [facility] Last Admin: 04/12/18 10:28 Dose: 12.5 mg Mometasone Furoate/Formoterol Fumar (Dulera 200/5 Mdi*) 2 puff INH BID [facility] Last Admin: 04/12/18 07:59 Dose: 2 puff Ondansetron HCl (Zofran Odt Tab*) 4 mg PO Q6H PRN PRN Reason: n/v Pantoprazole Sodium (Protonix Tab (Nf)) 40 mg PO QAM [facility] Last Admin: 04/12/18 10:27 Dose: 40 mg Sodium Chloride (Sodium Chloride 0.65% Nasal Drops*) 1 drop BOTH NARES Q4H PRN PRN Reason: DRY SKIN Tiotropium [place] (Spiriva Cap.Inh*) 1 cap INH DAILY [facility] Last Admin: 04/12/18 07:58 Dose: 1 cap Vital Signs - 8 hr 04/12/18 04/12/18 04/12/18 07:29 08:02 11:18 Temperature 97.7 F 98.6 F Pulse Rate 73 69 86 Respiratory 18 18 18 Rate Blood Pressure 115/62 100/55 (mmHg) O2 Sat by Pulse 92 93 94 Oximetry Oxygen Devices in Use Now: Nasal Cannula Appearance: Patient is a 77yo female who appears stated age and is sitting in the bed in [facility]. Eyes: No Scleral Icterus, PERRLA Ears/Nose/Mouth/Throat: NL Teeth, Lips, Gums, Clear Oropharnyx, Mucous Membranes Moist, - - Red Swollen Nasal mucosa. Neck: NL Appearance and Movements; NL JVP, Trachea Midline Respiratory: Symmetrical Chest Expansion and Respiratory Effort, - - Diminished in right lung base. Slight crackles. Cardiovascular: NL Sounds; No Murmurs; No JVD, RRR, No Edema Abdominal: NL Sounds; No Tenderness; No Distention, No Hepatosplenomegaly Lymphatic: No Cervical Adenopathy Extremities: No Edema, No Clubbing, Cyanosis Skin: No Rash or Ulcers, No Nodules or Sclerosis Neurological: Alert and Oriented x 3, NL Sensation, NL Gait, NL Muscle Strength and Tone, - - CN II-XII intact. Result Diagrams: 04/12/18 06:41 04/12/18 06:41 Additional Lab and Data: Lab Results 04/10/18 04/10/18 04/10/18 Range/Units 16:42 16:42 16:42 WBC (3.5-10.8) 10^3/ul RBC (4.00-5.40) 10^6/ul Hgb (12.0-16.0) g/dl Hct (35-47) % MCV (80-97) fL MCH (27-31) pg MCHC (31-36) g/dl RDW (10.5-15) % Plt Count (150-450) 10^3/ul MPV (7.4-10.4) um3 Neut % (Auto) (38-83) % Lymph % (Auto) (25-47) % [place] % (Auto) (0-7) % Eos % (Auto) (0-6) % Baso % (Auto) (0-2) % Absolute Neuts (auto) (1.5-7.7) 10^3/ul Absolute Lymphs (auto) (1.0-4.8) 10^3/ul Absolute Monos (auto) (0-0.8) 10^3/ul Absolute Eos (auto) (0-0.6) 10^3/ul Absolute Basos (auto) (0-0.2) 10^3/ul Absolute Nucleated RBC 10^3/ul Nucleated RBC % INR (Anticoag Therapy) 1.01 (0.77-1.02) APTT 28.8 (26.0-36.3) seconds Sodium (135-145) mmol/L Potassium (3.5-5.0) mmol/L Chloride (101-111) mmol/L Carbon Dioxide (22-32) mmol/L Anion Gap (2-11) mmol/L BUN (6-24) mg/dL Creatinine (0.51-0.95) mg/dL Est GFR ( Amer) (>60) Est GFR (Non-Af Amer) (>60) BUN/Creatinine Ratio (8-20) Glucose (70-100) mg/dL Lactic Acid 0.5 (0.5-2.0) mmol/L Calcium (8.6-10.3) mg/dL Total Bilirubin (0.2-1.0) mg/dL AST (13-39) U/L ALT (7-52) U/L Alkaline Phosphatase (34-104) U/L Total Creatine Kinase (10-223) U/L CK-MB (CK-2) (0.6-6.3) ng/mL Troponin I (<0.04) ng/mL C-Reactive Protein (<8.01) mg/L B-Natriuretic Peptide 78 ( - 100) pg/mL Total Protein (6.4-8.9) g/dL Albumin (3.2-5.2) g/dL Globulin (2-4) g/dL Albumin/Globulin Ratio (1-3) 04/10/18 04/10/18 Range/Units 16:43 16:43 WBC 12.2 H (3.5-10.8) 10^3/ul RBC 3.89 L (4.00-5.40) 10^6/ul Hgb 12.5 (12.0-16.0) g/dl Hct 38 (35-47) % MCV 97 (80-97) fL MCH 32 H (27-31) pg MCHC 33 (31-36) g/dl RDW 13 (10.5-15) % Plt Count 349 (150-450) 10^3/ul MPV 8.0 (7.4-10.4) um3 Neut % (Auto) 75.2 (38-83) % Lymph % (Auto) 10.4 L (25-47) % [place] % (Auto) 12.9 H (0-7) % Eos % (Auto) 1.1 (0-6) % Baso % (Auto) 0.4 (0-2) % Absolute Neuts (auto) 9.2 H (1.5-7.7) 10^3/ul Absolute Lymphs (auto) 1.3 (1.0-4.8) 10^3/ul Absolute Monos (auto) 1.6 H (0-0.8) 10^3/ul Absolute Eos (auto) 0.1 (0-0.6) 10^3/ul Absolute Basos (auto) 0.1 (0-0.2) 10^3/ul Absolute Nucleated RBC 0 10^3/ul Nucleated RBC % 0 INR (Anticoag Therapy) (0.77-1.02) APTT (26.0-36.3) seconds Sodium 135 (135-145) mmol/L Potassium 3.8 (3.5-5.0) mmol/L Chloride 96 L (101-111) mmol/L Carbon Dioxide 30 (22-32) mmol/L Anion Gap 9 (2-11) mmol/L BUN 11 (6-24) mg/dL Creatinine 0.55 (0.51-0.95) mg/dL Est GFR ( Amer) 129.3 (>60) Est GFR (Non-Af Amer) 106.9 (>60) BUN/Creatinine Ratio 20.0 (8-20) Glucose 119 H (70-100) mg/dL Lactic Acid (0.5-2.0) mmol/L Calcium 9.3 (8.6-10.3) mg/dL Total Bilirubin 0.30 (0.2-1.0) mg/dL AST 18 (13-39) U/L ALT 9 (7-52) U/L Alkaline Phosphatase 75 (34-104) U/L Total Creatine Kinase 35 (10-223) U/L CK-MB (CK-2) 2.2 (0.6-6.3) ng/mL Troponin I 0.00 (<0.04) ng/mL C-Reactive Protein 79.57 H (<8.01) mg/L B-Natriuretic Peptide ( - 100) pg/mL Total Protein 6.5 (6.4-8.9) g/dL Albumin 3.1 L (3.2-5.2) g/dL Globulin 3.4 (2-4) g/dL Albumin/Globulin Ratio 0.9 L (1-3) Assess/Plan/Problems-Billing Assessment: Patient is a 77yo female with a PMH for breast cancer, COPD with chronic hypoxic respiratory failure, CAD, OR, HTN, here with worsened SOB without pneumothorax and with positive cytology for metastatic carcinoma. - Patient Problems (1) Pleural effusion Current Visit: Yes Status: Acute Code(s): J90 - PLEURAL EFFUSION, NOT ELSEWHERE CLASSIFIED SNOMED Code(s): 13864817 Comment: Caused by lung cancer. Unilateral pleural effusion. S/P thoracentesis x2. Malignant cells on most recent pleural fluid analysis. Pulmonology and Oncology input appreciated. Primary source unknown. Pathology pending for tomorrow. Surgery consulted for PleurX drain which will likely be placed outpatient for symptomatic relief. (2) History of breast cancer Current Visit: Yes Status: Acute Code(s): Z85.3 - PERSONAL HISTORY OF MALIGNANT NEOPLASM OF BREAST SNOMED Code(s): 685259384 Comment: S/P Lumpectomy and Radiation. Triple Positive. Possible primary source for lung mass. (3) SOB (shortness of breath) Current Visit: No Status: Acute Code(s): R06.02 - SHORTNESS OF BREATH SNOMED Code(s): 513758323 Comment: With increased need for O2 in ED. Now weaned down to 1.5L which is below home dose. Increased for several weeks before thoracentesis. Improved this AM. Not back to baseline. CTA negative for PE, pneumonia and pneumothrax. New diagnosis lung cancer. Started COPD controller treatment. (4) COPD (chronic obstructive pulmonary disease) Current Visit: No Status: Acute Code(s): J44.9 - CHRONIC OBSTRUCTIVE PULMONARY DISEASE, UNSPECIFIED SNOMED Code(s): 57363593 Comment: Without exacerbation. Start on Controller medications. Appreciate pulmonology input. (5) HLD (hyperlipidemia) Current Visit: No Status: Acute Code(s): E78.5 - HYPERLIPIDEMIA, UNSPECIFIED SNOMED Code(s): 94014718 Comment: Continue statin. (6) Hx of coronary artery disease Current Visit: No Status: Acute Code(s): Z86.79 - PERSONAL HISTORY OF OTHER DISEASES OF THE CIRCULATORY SYSTEM SNOMED Code(s): 559585810 Comment: OR with stent placement on 2011 with stent placement. Recent D/C of Plavix. No chest pain (7) HTN (hypertension) Current Visit: No Status: Chronic Code(s): I10 - ESSENTIAL (PRIMARY) HYPERTENSION SNOMED Code(s): 11751729 Comment: [place] hypotensive. Decrease Metoprolol. (8) DVT prophylaxis Current Visit: No Status: Acute Code(s): PCB2124 - SNOMED Code(s): 307386446 (9) Full code status Current Visit: No Status: Acute Code(s): Z78.9 - OTHER SPECIFIED HEALTH STATUS SNOMED Code(s): 781378183 Comment: HSQ Status and Disposition: Inpatient for new diagnosis of cancer.
[2018-04-12] MEDS: Cyanocobalamin TAB* 500 MCG PO SCH (18:20)
[2018-04-12] MEDS: Atorvastatin* 10 MG TAB PO SCH (18:21)
[2018-04-12] MEDS: CMC:LoraTADine TAB(NF) 10 MG TAB (AUTOSUB to CETIRIZINE) PO SCH (18:22)
[2018-04-13] MEDS: Acetaminophen TAB* 325 MG PO PRN (05:03)
[2018-04-13] MEDS: Heparin VIAL(*) 5000 UNITS/ML VIAL (FIVE THOUSAND) SUBCUT SCH ×3 (05:04→21:51)
[2018-04-13 06:50] LABS: ABS Basophils 0.1 10^3/ul (0-0.2); ABS Eosinophils 0.3 10^3/ul (0-0.6); ABS Lymphocytes 1.4 10^3/ul (1.0-4.8); ABS Monocytes 1.4 10^3/ul (0-0.8); ABS Neutrophils 7.5 10^3/ul (1.5-7.7); ABS Nucleated RBC 0 10^3/ul; Eosinophil % 3.2 % (0-6); Hematocrit 33 % (35-47); Hemoglobin 11.1 g/dl (12.0-16.0); Lymphocyte % 12.8 % (25-47); Mean Corpuscular HGB Conc 34 g/dl (31-36); Mean Corpuscular Hemoglobin 33 pg (27-31); Mean Corpuscular Volume 96 fL (80-97); Mean Platelet Volume 8.1 um3 (7.4-10.4); Nucleated Red Blood Cells % 0; Platelet Count 344 10^3/ul (150-450); Red Blood Count 3.42 10^6/ul (4.00-5.40); Red Cell Distribution Width 14 % (10.5-15); White Blood Count 10.6 10^3/ul (3.5-10.8)
[2018-04-13 07:12] LABS: EGFR Non-African American 122.1 (>60)
[2018-04-13] MEDS: Tiotropium CAP.INH* CAP.INH/18 MCG (USE ORDER SET !) INH SCH (07:46)
[2018-04-13] MEDS: Mometasone/Formoter 200/5 MDI INH SCH ×2 (07:46→20:31)
[2018-04-13] MEDS: Fluticasone NASAL SPRAY 50MCG* 16 gm SPRAY BTL BOTH NARES SCH (07:49)
[2018-04-13] MEDS: Cyanocobalamin TAB* 500 MCG PO SCH (07:50)
[2018-04-13] MEDS: Docusate CAP* 100 MG PO SCH ×2 (07:50→19:49)
[2018-04-13] MEDS: Metoprolol Tartrate TAB* 25 MG PO SCH ×2 (07:51→18:03)
[2018-04-13] MEDS: CMCS: Pantoprazole TAB (NF) 40 MG TAB PO SCH (07:51)
[2018-04-13] MEDS: CMC:LoraTADine TAB(NF) 10 MG TAB (AUTOSUB to CETIRIZINE) PO SCH ×2 (07:52→07:56)
[2018-04-13] MEDS: Aspirin EC TAB* 81 MG TAB.EC PO SCH (07:52)
--- NOTE | 2018-04-13 09:29 | PN ---
Progress Note - Progress Note Date of Service: 04/13/18 SOAP: Subjective: []She has chest pain, comes and goes but feels like deep pain, right side. Breathing better after fluid drained but feels is worse every day, worried about making it to . No fevers. Acetaminophen (Tylenol Tab*) 650 mg PO Q6H PRN PRN Reason: FEVER/PAIN Last Admin: 04/13/18 05:03 Dose: 650 mg Albuterol (Ventolin Hfa Inhaler*) 2 puff INH Q4H PRN PRN Reason: SOB/WHEEZING Albuterol/Ipratropium (Duoneb (Albuterol 2.5 Mg/Ipratropium 0.5 Mg)) 1 neb INH Q4H PRN PRN Reason: SOB/WHEEZING Aspirin (Aspirin Ec Tab*) 81 mg PO DAILY [facility] Last Admin: 04/13/18 07:52 Dose: 81 mg Atorvastatin Calcium (Lipitor*) 10 mg PO QPM [facility] Last Admin: 04/12/18 18:21 Dose: 10 mg Cyanocobalamin (Vitamin B12 Tab*) 1,000 mcg PO DAILY [facility] Last Admin: 04/13/18 07:50 Dose: 1,000 mcg Docusate Sodium (Colace Cap*) 200 mg PO BID [facility] Last Admin: 04/13/18 07:50 Dose: 200 mg Fluticasone Propionate (Flonase Nasal [place] 50mcg*) 2 spray BOTH NARES DAILY [facility] Last Admin: 04/13/18 07:49 Dose: 2 spray Gabapentin (Neurontin Cap(*)) 100 mg PO DAILY PRN PRN Reason: NEUROPATHY Heparin Sodium (Porcine) (Heparin Vial(*)) 5,000 units SUBCUT Q8HR [facility] Last Admin: 04/13/18 05:04 Dose: 5,000 units Loratadine (Claritin Tab(Nf)) 10 mg PO DAILY [facility] Last Admin: 04/13/18 07:56 Dose: Not Given Melatonin (Melatonin) 3 mg PO BEDTIME PRN; Protocol PRN Reason: Sleep Metoprolol Tartrate (Lopressor Tab*) 12.5 mg PO BID WITH MEALS [facility] Last Admin: 04/13/18 07:51 Dose: 12.5 mg Mometasone Furoate/Formoterol Fumar (Dulera 200/5 Mdi*) 2 puff INH BID [facility] Last Admin: 04/13/18 07:46 Dose: 2 puff Ondansetron HCl (Zofran Odt Tab*) 4 mg PO Q6H PRN PRN Reason: n/v Pantoprazole Sodium (Protonix Tab (Nf)) 40 mg PO QAM [facility] Last Admin: 04/13/18 07:51 Dose: 40 mg Sodium Chloride (Sodium Chloride 0.65% Nasal Drops*) 1 drop BOTH NARES Q4H PRN PRN Reason: DRY SKIN Last Admin: 04/12/18 18:25 Dose: 1 drop Tiotropium [place] (Spiriva Cap.Inh*) 1 cap INH DAILY [facility] Last Admin: 04/13/18 07:46 Dose: 1 cap Objective: [] Vital Signs Temp Pulse Resp BP Pulse Ox 97.5 F 67 17 113/64 94 04/13/18 07:35 04/13/18 07:35 04/13/18 07:35 04/13/18 07:35 04/13/18 07:35 HEENT - NC, OM moist. 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 We dicussed new diagnosis of lung cancer. She has stage IV disease and it is not curable. Therapy is chemotherapy (Carbo/Taxol) or chemoimunotherapy (Carbo/Taxol/Pembrolizumab) based on KEYNOTE-047. If treated most patients respond and therapy is well tolerated but with significant potential risks and risks of side effects. Given limited disease, median survival is around 18 months but highly variable from under a year to several years. When cancer is responding, QOL is better then before treatment but inferior to before symptoms of cancer began. Without treatment average survival is [address] we work to control symptoms. She is not sure if she wants to treat cancer or not. Plan: 1. Will plan discharge today 2. Pleurex next Thurs, can move up if breathing worse again. 3. For pain, Fentanly patch 12.5 mcg and prn oxycodone on discharge 4. Palliative care consult on discharge to discuss hospice. 5. Follow up in clinic on Monday, appointment made. face time with patient and chart 40 min
[2018-04-13] MEDS ORDERED: oxyCODONE TAB* 5 MG TAB PO PRN (09:36)
[2018-04-13] MEDS ORDERED: fentaNYL PATCH 12 MCG/HR TRANSDERM SCH (10:00)
--- NOTE | 2018-04-13 11:11 | PN ---
Progress Note - Progress Note Date of Service: 04/12/18 Note: I met with patient to discuss placement of PleurX catheter. She was just drained, so the need for the catheter is not urgent. I can see her back as an outpatient and plan for next week.
--- NOTE | 2018-04-13 17:26 | RAD ---
INDICATION: Shortness of breath. Assess pleural effusion. COPD. COMPARISON: April 10, 2018 CT and chest radiograph.. TECHNIQUE: Dual energy PA and routine lateral views of the chest were obtained. REPORT: Increased moderately large partially loculated appearing RIGHT lateral basal pleural effusion with proportional atelectasis. Clear LEFT pleural space. Elevated lung volumes with both mild prominence and rarefaction of interstitial markings.. Negative for cardiomegaly. Prominent central pulmonary vasculature with peripheral attenuation favoring pulmonary arterial hypertension. IMPRESSION: #. Interval increase in partially loculated appearing moderately large RIGHT pleural effusion with proportional atelectasis. #. Chronic obstructive pulmonary disease.
[2018-04-13] MEDS: LORazepam TAB(*) 0.5 MG PO PRN (18:03)
[2018-04-13] MEDS: Atorvastatin* 10 MG TAB PO SCH (18:03)
--- NOTE | 2018-04-13 18:06 | PN ---
Subjective Date of Service: 04/13/18 Interval History: Patient began the day feeling well with only slight pain in her side but with increasing shortness of breath with exertion in a consistent pattern to her previous pattern of fluid accumulation in her lung. Patient denied other CP, N/V , abdominal pain, diarrhea, dysuria, dizziness. Patient in the afternoon took a nap and woke up with increasing pain in her side and worsening SOB with a very unsettling feeling of being unable to stop the sensation in her side. Patient found the idea of going home with this sensation intolerable. This sensation decreased and she was willing again to consider a late discharge. Family History: Unchanged from Admission Social History: Unchanged from Admission Past Medical History: Unchanged from Admission Objective Active Medications: Acetaminophen (Tylenol Tab*) 650 mg PO Q6H PRN PRN Reason: FEVER/PAIN Last Admin: 04/13/18 05:03 Dose: 650 mg Albuterol (Ventolin Hfa Inhaler*) 2 puff INH Q4H PRN PRN Reason: SOB/WHEEZING Albuterol/Ipratropium (Duoneb (Albuterol 2.5 Mg/Ipratropium 0.5 Mg)) 1 neb INH Q4H PRN PRN Reason: SOB/WHEEZING Aspirin (Aspirin Ec Tab*) 81 mg PO DAILY [facility] Last Admin: 04/13/18 07:52 Dose: 81 mg Atorvastatin Calcium (Lipitor*) 10 mg PO QPM [facility] Last Admin: 04/12/18 18:21 Dose: 10 mg Cyanocobalamin (Vitamin B12 Tab*) 1,000 mcg PO DAILY [facility] Last Admin: 04/13/18 07:50 Dose: 1,000 mcg Docusate Sodium (Colace Cap*) 200 mg PO BID [facility] Last Admin: 04/13/18 07:50 Dose: 200 mg Fentanyl (Duragesic Patch 12 Mcg/Hr *) 12 mcg TRANSDERM Q72H [facility] Last Admin: 04/13/18 11:00 Dose: 12 mcg Fluticasone Propionate (Flonase Nasal [place] 50mcg*) 2 spray BOTH NARES DAILY [facility] Last Admin: 04/13/18 07:49 Dose: 2 spray Gabapentin (Neurontin Cap(*)) 100 mg PO DAILY PRN PRN Reason: NEUROPATHY Heparin Sodium (Porcine) (Heparin Vial(*)) 5,000 units SUBCUT Q8HR [facility] Last Admin: 04/13/18 15:04 Dose: Not Given Loratadine (Claritin Tab(Nf)) 10 mg PO DAILY [facility] Last Admin: 04/13/18 07:56 Dose: Not Given Lorazepam (Ativan Tab(*)) 0.5 mg PO Q4H PRN PRN Reason: ANXIETY Melatonin (Melatonin) 3 mg PO BEDTIME PRN; Protocol PRN Reason: Sleep Metoprolol Tartrate (Lopressor Tab*) 12.5 mg PO BID WITH MEALS [facility] Last Admin: 04/13/18 07:51 Dose: 12.5 mg Mometasone Furoate/Formoterol Fumar (Dulera 200/5 Mdi*) 2 puff INH BID [facility] Last Admin: 04/13/18 07:46 Dose: 2 puff Ondansetron HCl (Zofran Odt Tab*) 4 mg PO Q6H PRN PRN Reason: n/v Oxycodone HCl (Roxycodone Tab*) 5 mg PO Q4H PRN PRN Reason: PAIN Pantoprazole Sodium (Protonix Tab (Nf)) 40 mg PO QAM [facility] Last Admin: 04/13/18 07:51 Dose: 40 mg Sodium Chloride (Sodium Chloride 0.65% Nasal Drops*) 1 drop BOTH NARES Q4H PRN PRN Reason: DRY SKIN Last Admin: 04/12/18 18:25 Dose: 1 drop Tiotropium [place] (Spiriva Cap.Inh*) 1 cap INH DAILY [facility] Last Admin: 04/13/18 07:46 Dose: 1 cap Vital Signs - 8 hr 04/13/18 04/13/18 11:00 11:48 Temperature 98.4 F Pulse Rate 69 Respiratory 16 17 Rate Blood Pressure 108/69 (mmHg) O2 Sat by Pulse 96 Oximetry Oxygen Devices in Use Now: Nasal Cannula Appearance: Patient is a 77yo female who appears stated age and is sitting in the bed in [facility]. Eyes: No Scleral Icterus, PERRLA Ears/Nose/Mouth/Throat: NL Teeth, Lips, Gums, Clear Oropharnyx, Mucous Membranes Moist Neck: NL Appearance and Movements; NL JVP, Trachea Midline Respiratory: Symmetrical Chest Expansion and Respiratory Effort, - - Diminished lung sounds in RLL with associated rhonchi. Stable through day. Cardiovascular: NL Sounds; No Murmurs; No JVD, RRR, No Edema Abdominal: NL Sounds; No Tenderness; No Distention, No Hepatosplenomegaly Lymphatic: No Cervical Adenopathy Extremities: No Edema, No Clubbing, Cyanosis Skin: No Rash or Ulcers, No Nodules or Sclerosis Neurological: Alert and Oriented x 3, NL Sensation, NL Muscle Strength and Tone , - - CN II-XII intact. Result Diagrams: 04/13/18 06:28 04/13/18 06:28 Additional Lab and Data: Lab Results 04/10/18 04/10/18 04/10/18 Range/Units 16:42 16:42 16:42 WBC (3.5-10.8) 10^3/ul RBC (4.00-5.40) 10^6/ul Hgb (12.0-16.0) g/dl Hct (35-47) % MCV (80-97) fL MCH (27-31) pg MCHC (31-36) g/dl RDW (10.5-15) % Plt Count (150-450) 10^3/ul MPV (7.4-10.4) um3 Neut % (Auto) (38-83) % Lymph % (Auto) (25-47) % Coffee % (Auto) (0-7) % Eos % (Auto) (0-6) % Baso % (Auto) (0-2) % Absolute Neuts (auto) (1.5-7.7) 10^3/ul Absolute Lymphs (auto) (1.0-4.8) 10^3/ul Absolute Monos (auto) (0-0.8) 10^3/ul Absolute Eos (auto) (0-0.6) 10^3/ul Absolute Basos (auto) (0-0.2) 10^3/ul Absolute Nucleated RBC 10^3/ul Nucleated RBC % INR (Anticoag Therapy) 1.01 (0.77-1.02) APTT 28.8 (26.0-36.3) seconds Sodium (135-145) mmol/L Potassium (3.5-5.0) mmol/L Chloride (101-111) mmol/L Carbon Dioxide (22-32) mmol/L Anion Gap (2-11) mmol/L BUN (6-24) mg/dL Creatinine (0.51-0.95) mg/dL Est GFR ( Amer) (>60) Est GFR (Non-Af Amer) (>60) BUN/Creatinine Ratio (8-20) Glucose (70-100) mg/dL Lactic Acid 0.5 (0.5-2.0) mmol/L Calcium (8.6-10.3) mg/dL Total Bilirubin (0.2-1.0) mg/dL AST (13-39) U/L ALT (7-52) U/L Alkaline Phosphatase (34-104) U/L Total Creatine Kinase (10-223) U/L CK-MB (CK-2) (0.6-6.3) ng/mL Troponin I (<0.04) ng/mL C-Reactive Protein (<8.01) mg/L B-Natriuretic Peptide 78 ( - 100) pg/mL Total Protein (6.4-8.9) g/dL Albumin (3.2-5.2) g/dL Globulin (2-4) g/dL Albumin/Globulin Ratio (1-3) 04/10/18 04/10/18 Range/Units 16:43 16:43 WBC 12.2 H (3.5-10.8) 10^3/ul RBC 3.89 L (4.00-5.40) 10^6/ul Hgb 12.5 (12.0-16.0) g/dl Hct 38 (35-47) % MCV 97 (80-97) fL MCH 32 H (27-31) pg MCHC 33 (31-36) g/dl RDW 13 (10.5-15) % Plt Count 349 (150-450) 10^3/ul MPV 8.0 (7.4-10.4) um3 Neut % (Auto) 75.2 (38-83) % Lymph % (Auto) 10.4 L (25-47) % Coffee % (Auto) 12.9 H (0-7) % Eos % (Auto) 1.1 (0-6) % Baso % (Auto) 0.4 (0-2) % Absolute Neuts (auto) 9.2 H (1.5-7.7) 10^3/ul Absolute Lymphs (auto) 1.3 (1.0-4.8) 10^3/ul Absolute Monos (auto) 1.6 H (0-0.8) 10^3/ul Absolute Eos (auto) 0.1 (0-0.6) 10^3/ul Absolute Basos (auto) 0.1 (0-0.2) 10^3/ul Absolute Nucleated RBC 0 10^3/ul Nucleated RBC % 0 INR (Anticoag Therapy) (0.77-1.02) APTT (26.0-36.3) seconds Sodium 135 (135-145) mmol/L Potassium 3.8 (3.5-5.0) mmol/L Chloride 96 L (101-111) mmol/L Carbon Dioxide 30 (22-32) mmol/L Anion Gap 9 (2-11) mmol/L BUN 11 (6-24) mg/dL Creatinine 0.55 (0.51-0.95) mg/dL Est GFR ( Amer) 129.3 (>60) Est GFR (Non-Af Amer) 106.9 (>60) BUN/Creatinine Ratio 20.0 (8-20) Glucose 119 H (70-100) mg/dL Lactic Acid (0.5-2.0) mmol/L Calcium 9.3 (8.6-10.3) mg/dL Total Bilirubin 0.30 (0.2-1.0) mg/dL AST 18 (13-39) U/L ALT 9 (7-52) U/L Alkaline Phosphatase 75 (34-104) U/L Total Creatine Kinase 35 (10-223) U/L CK-MB (CK-2) 2.2 (0.6-6.3) ng/mL Troponin I 0.00 (<0.04) ng/mL C-Reactive Protein 79.57 H (<8.01) mg/L B-Natriuretic Peptide ( - 100) pg/mL Total Protein 6.5 (6.4-8.9) g/dL Albumin 3.1 L (3.2-5.2) g/dL Globulin 3.4 (2-4) g/dL Albumin/Globulin Ratio 0.9 L (1-3) Assess/Plan/Problems-Billing Assessment: Patient is a 77yo female with a PMH for breast cancer, COPD with chronic hypoxic respiratory failure, CAD, [place], HTN, here with worsened SOB without pneumothorax and with positive cytology for metastatic carcinoma. - Patient Problems (1) Pleural effusion Current Visit: Yes Status: Acute Code(s): J90 - PLEURAL EFFUSION, NOT ELSEWHERE CLASSIFIED SNOMED Code(s): 28991286 Comment: Caused by lung cancer. Unilateral pleural effusion. S/P thoracentesis x2. Malignant cells on most recent pleural fluid analysis. Pulmonology and Oncology input appreciated. Primary lung squamous cell cancer. Will follow up closely with Dr. Oliveira of oncology outpatient for consideration of treatment options. Surgery consulted for PleurX drain which will likely be placed outpatient for symptomatic relief. Given worsening of patient's symptoms the possibility of doing catheter inpatient discussed with surgery. (2) History of breast cancer Current Visit: Yes Status: Acute Code(s): Z85.3 - PERSONAL HISTORY OF MALIGNANT NEOPLASM OF BREAST SNOMED Code(s): 215318251 Comment: S/P Lumpectomy and Radiation. Triple Positive. (3) SOB (shortness of breath) Current Visit: No Status: Acute Code(s): R06.02 - SHORTNESS OF BREATH SNOMED Code(s): 590820971 Comment: With increased need for O2 in ED. Now weaned down to 1.5L which is below home dose. Increased for several weeks before thoracentesis. Improved this AM. Not back to baseline. CTA negative for PE, pneumonia and pneumothrax. New diagnosis lung cancer. Started COPD controller treatment. Shortness of breath and chest pain associated with pleural effusion increased in PM. Fentanyl and Ativan for SOB. (4) COPD (chronic obstructive pulmonary disease) Current Visit: No Status: Acute Code(s): J44.9 - CHRONIC OBSTRUCTIVE PULMONARY DISEASE, UNSPECIFIED SNOMED Code(s): 70533610 Comment: Without exacerbation. Start on Controller medications. Appreciate pulmonology input. (5) HLD (hyperlipidemia) Current Visit: No Status: Acute Code(s): E78.5 - HYPERLIPIDEMIA, UNSPECIFIED SNOMED Code(s): 34253155 Comment: Continue statin. (6) Hx of coronary artery disease Current Visit: No Status: Acute Code(s): Z86.79 - PERSONAL HISTORY OF OTHER DISEASES OF THE CIRCULATORY SYSTEM SNOMED Code(s): 872243417 Comment: [place] with stent placement on 2011 with stent placement. Recent D/C of Plavix. No chest pain (7) HTN (hypertension) Current Visit: No Status: Chronic Code(s): I10 - ESSENTIAL (PRIMARY) HYPERTENSION SNOMED Code(s): 36966711 Comment: [place] hypotensive. Decrease Metoprolol. (8) DVT prophylaxis Current Visit: No Status: Acute Code(s): RLW2816 - SNOMED Code(s): 591830691 (9) Full code status Current Visit: No Status: Acute Code(s): Z78.9 - OTHER SPECIFIED HEALTH STATUS SNOMED Code(s): 201993818 Comment: HSQ Status and Disposition: Inpatient for new diagnosis of cancer.
[2018-04-14] MEDS: LORazepam TAB(*) 0.5 MG PO PRN ×3 (00:08→13:26)
[2018-04-14] MEDS: Acetaminophen TAB* 325 MG PO PRN ×2 (05:30→13:26)
[2018-04-14] MEDS: Heparin VIAL(*) 5000 UNITS/ML VIAL (FIVE THOUSAND) SUBCUT SCH ×2 (05:32→13:26)
[2018-04-14] MEDS ORDERED: fentaNYL Patch Check Q Shift 1 NOTE FOLLOW UP SCH (08:00)
[2018-04-14] MEDS: Aspirin EC TAB* 81 MG TAB.EC PO SCH (08:16)
[2018-04-14] MEDS: CMC:LoraTADine TAB(NF) 10 MG TAB (AUTOSUB to CETIRIZINE) PO SCH (08:16)
[2018-04-14] MEDS: Metoprolol Tartrate TAB* 25 MG PO SCH (08:16)
[2018-04-14] MEDS: Docusate CAP* 100 MG PO SCH (08:16)
[2018-04-14] MEDS: CMCS: Pantoprazole TAB (NF) 40 MG TAB PO SCH (08:16)
[2018-04-14] MEDS: Cyanocobalamin TAB* 500 MCG PO SCH (08:16)
[2018-04-14] MEDS: Fluticasone NASAL SPRAY 50MCG* 16 gm SPRAY BTL BOTH NARES SCH (08:17)
[2018-04-14] MEDS: Mometasone/Formoter 200/5 MDI INH SCH (08:24)
[2018-04-14] MEDS: Tiotropium CAP.INH* CAP.INH/18 MCG (USE ORDER SET !) INH SCH (08:24)
[2018-04-14 12:50] VITALS: BP 102/57
--- NOTE | 2018-04-16 09:49 | DS ---
CC: Dr. Rogers Rodriguez; Dr. Ry Tanner; Dr. Kevin Oliveira; Dr. Nikole Thomas* DISCHARGE SUMMARY: DATE OF ADMISSION: 04/10/18 DATE OF DISCHARGE: 04/14/18 PRIMARY CARE PROVIDER: Dr. Rogers Rodriguez. MY ATTENDING WHILE IN THE HOSPITAL: Dr. Ry Tanner* (dictated by DUSTIN Mata). OUTPATIENT ONCOLOGIST: Dr. Kevin Oliveira. COMMANDING [employer]: Dr. Nikole Thomas. PRIMARY DISCHARGE DIAGNOSES: 1. 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 2. Chronic obstructive pulmonary disease. SECONDARY DISCHARGE DIAGNOSES: 1. History of triple-positive breast cancer, status post resection and radiation. 2. Coronary artery disease with myocardial infarction and stent. 3. Hypertension. 4. Hyperlipidemia. 5. Gastroesophageal reflux disease. STUDIES DONE WHILE IN THE HOSPITAL: Chest x-ray from 04/10/18 read as negative for pneumothorax, small dependent partially loculated right pleural effusion with proportional basilar atelectasis from 03/26/18 CT, old right mediastinal shift without change, stigmata of advanced COPD. Echocardiogram shows normal sinus rhythm, no ST-segment abnormalities, normal axis, no hypertrophy or enlargement, rate of 89, QTc of 445, no other abnormalities. A chest thorax CTA from 04/10/18 read as no evidence for pulmonary embolism, small predominant dependent partially loculated right pleural effusion with interval decrease compared to 03/26/18, proportional atelectasis with nodular right hemithorax, pleural thickening, most prominent at the level of azygoesophageal recess. There is also soft tissue thickening in the axial interstitium of the right lung in the infrahilar region without significant interval change, unchanged borderline right suprahilar and mildly enlarged right infrahilar lymph nodes. Chest x-ray from 04/13/18 read as interval increase in partially loculated appearing moderately large right pleural effusion with proportional atelectasis , chronic obstructive pulmonary disease. MEDICATIONS AT DISCHARGE: 1. Aspirin 81 mg p.o. daily. 2. Multivitamin 1 tab p.o. daily. 3. Calcium carbonate 1 tab p.o. b.i.d. 4. Vitamin B12 1000 mcg p.o. daily. 5. Gabapentin 100 mg p.o. daily as needed. 6. Simvastatin 20 mg p.o. q.p.m. 7. Pantoprazole 40 mg p.o. q.a.m. 8. Metoprolol tartrate 12.5 mg p.o. b.i.d. 9. Albuterol inhaler 1 puff to 2 puffs inhalation q.4 hours as needed. 10. Biotin 1 mg p.o. daily with meal. 11. Tylenol 650 mg p.o. q.6 hours as needed. 12. Docusate 200 mg p.o. b.i.d. 13. Fentanyl patch 12 mcg transdermal q.72 hours. 14. Loratadine 10 mg p.o. daily. 15. Melatonin 3 mg p.o. at bedtime as needed. 16. Dulera 2 puffs inhalation b.i.d. 17. Zofran 4 mg p.o. q.6 hours as needed. 18. Saline nasal drops 1 drop both nares q.4 hours as needed. 19. Tiotropium 1 cap inhalation daily. 20. Lorazepam 0.5 mg p.o. q.4 hours as needed. 21. Fluticasone nasal spray, 2 sprays both nares daily as needed. HOSPITAL COURSE: This is a brief summary of the patient's presentation. For more details, please see the history and physical from Al Melendez MD, on 04/10/18. In brief, the patient is a 77-year-old female with past medical history significant for the above, who was recently hospitalized in this institution with a right lower lobe lung mass and pleural effusion. The patient had a thoracentesis at that time showing only inflammatory cells. The patient had an outpatient thoracentesis, which was ordered by Dr. Nikole Thomas whom she saw outpatient. The patient's oxygen requirement after the procedure was increased to 3 L, but she was never documented to be hypoxic. The patient had been having worsening shortness of breath over even slight activity since her hospitalization. The patient initially felt worse after her thoracentesis and was admitted to the hospital and treated symptomatically for her COPD. The patient had no other signs of infection. The patient on felt significantly better. The patient was seen in consultation by Dr. Nikole Thomas, and at approximately the same time her pleural fluid studies came back positive for metastatic malignant carcinoma. The patient was able to be weaned down to room air briefly during hospitalization, but then again needed oxygen supplementation. It is recommended that the patient have an Oncology consult and consideration for PleurX catheter for symptomatic relief of her dyspnea on exertion. The patient initially had slight leukocytosis of 12.2, which trended down through her hospitalization. The patient had elevated CRP, negative BNP, negative procalcitonin. The patient had a low magnesium of 1.2, which was supplemented during her hospitalization. The patient had no other significant laboratory abnormalities except for slight anemia. The patient was seen in consultation by Dr. Kevin Oliveira of Oncology on 04/13/18 and her treatment options for immunochemotherapy were discussed with her and the patient stated that she would like to think over her options before deciding on any treatment plan. The patient was informed of her limited prognosis, but with great variability. The patient was started on fentanyl patch for pain. The patient was seen in consultation by Dr. Fredrick Calero for consideration of placement for a PleurX catheter, who deemed that she did not have enough fluid in her lung to safely do so without risking pneumothorax, so she was scheduled for next week for a PleurX catheter. The patient on 04/13/18 felt initially in the morning stable for discharge; however, she had a significant increase in her shortness of breath and pain in her side in the evening of 04/13/18 and said that she does not think she would be able to cope at home. A repeat chest x-ray was obtained. It was discussed with the Surgery. Placement of the PleurX catheter being moved up; however, based on the repeat chest x-ray, it was still deemed unsafe to place a catheter and the patient's shortness of breath and chest pain diminished on 04/14/18 and she was stable and amenable for discharge. PHYSICAL EXAMINATION ON DAY OF DISCHARGE: General: The patient is a 77-year- old female, who appears stated age, sitting comfortably in the bed, in no acute distress. Vital Signs: At the time of discharge, temperature 97.9, pulse rate 63, respiratory rate 14, oxygen saturation 97% on room air, blood pressure 102/ 57. HEENT: Head: Normocephalic, atraumatic. Sclerae anicteric. No conjunctival injection. Nasal mucosa is moist. Oral mucosa is moist. No pharyngeal erythema, discharge, or exudate. Neck: Supple, nontender. No lymphadenopathy. No carotid bruits auscultated. No JVD. Cardiac: Regular rate and rhythm. No clicks, murmurs, gallops, or rubs. Pulses 2+ in the bilateral dorsalis pedis, posterior tibial, and radial areas. Respiratory: Diminished breath sounds in the right lower lobe with associated rales. No adventitious lung sounds. Abdomen: Soft, nontender, nondistended. Bowel sounds present. Normoactive in all 4 quadrants. No hepatosplenomegaly. No abdominal bruits auscultated. No hepatojugular reflux. Genitourinary: No suprapubic or CVA tenderness. Skin: Clean, dry, intact. No rash. Neuro: Cranial nerves II through XII intact. No focal deficits. Alert and oriented x3. Psychiatric: Pleasant and cooperative. DISCHARGE PLAN: The patient will be discharged to home. The patient will be accompanied by her son or her best friend at most times until her appointment on Monday. The patient is very apprehensive about being at home alone; however , she had good response in this respect to the Ativan. The patient had good pain control with p.r.n. oxycodone and fentanyl. The patient stated that she has Percocet at home that she responded well to and that she will take these until she sees Dr. Oliveira on 04/16/18. At that time, the patient will think over her presented treatment options for her cancer over the weekend and discuss them again with Dr. Oliveira on Monday. The patient will be continued on inhalers as above for symptomatic treatment of her COPD, but most of her dyspnea likely is from worsening of her pleural effusion. The patient's clopidogrel was stopped due to it being over 2 years since her most recent cardiac catheterization. The patient should follow up with [facility] in the community as needed for end-of-life care if she elects to have no chemotherapy. The patient should return to the hospital for intractable pain, uncontrolled shortness of breath, syncope, or other alarming symptoms. The patient will follow up with her primary care provider within 1 week for general medical management and follow up with Dr. Calero as scheduled or sooner as needed for PleurX catheter placement if her symptoms are otherwise unmanageable. TIME SPENT: Approximately 90 minutes was spent on this discharge of this patient, 60 of which was spent [id number] with the patient obtaining history and physical and discussing treatment plan. DUSTIN MATA [id number]/[facility] #: [id number] ERIC
== END 2018-04-14 14:10 | disposition home or self-care (01) | DRG 164 ==
LOC: ED 15:24 → MED 22:15 → OBSVTOIN 04-12 10:01
PROVIDERS: ADMIT Hospitalist; ATTEND Hospitalist
PROC: 0BD Respiratory System, Extraction (ICD-10-PCS; principal; 2018-04-10)
PROC: 0W993ZX Drainage of Right Pleural Cavity, Percutaneous Approach, Diagnostic (ICD-10-PCS; 2018-04-10)
DX: C34.31 Malignant neoplasm of lower lobe, right bronchus or lung (principal); J91.0 Malignant pleural effusion; J98.11 Atelectasis; J96.11 Chronic respiratory failure with hypoxia; J44.9 Chronic obstructive pulmonary disease, unspecified; I25.10 Atherosclerotic heart disease of native coronary artery without angina pectoris; I11.9 Hypertensive heart disease without heart failure; E78.5 Hyperlipidemia, unspecified; K21.9 Gastro-esophageal reflux disease without esophagitis; I25.2 Old myocardial infarction; Z95.5 Presence of coronary angioplasty implant and graft; Z85.3 Personal history of malignant neoplasm of breast; Z79.82 Long term (current) use of aspirin; Z79.899 Other long term (current) drug therapy; Z88.1 Allergy status to other antibiotic agents; Z88.5 Allergy status to narcotic agent; Z88.0 Allergy status to penicillin; Z88.2 Allergy status to sulfonamides; Z88.8 Allergy status to other drugs, medicaments and biological substances; Z87.891 Personal history of nicotine dependence; Z80.9 Family history of malignant neoplasm, unspecified; Z80.3 Family history of malignant neoplasm of breast; Z82.49 Family history of ischemic heart disease and other diseases of the circulatory system; Z99.81 Dependence on supplemental oxygen
CPT/HCPCS: 20206; 32555; 36415; 71046; 71275; 76942; 80048; 80053; 81003; 81445; 82550; 82553; 82565; 83605; 83735; 83880; 84145; 84484; 84520; 85025; 85027; 85049; 85610; 85730; 86140; 88112; 88172; 88173; 88177; 88305; 88341; 88342; 88360; 89051; 93005; 94640; 99233; 99285; A9270-GY; G0378; G8978-GP-CI; G8979-GP-CH; G8987-GO-CJ; G8988-GO-CI; G8989-GO-CI; J1644; J2270; J2405; J3010; J3475; Q9967

== ENCOUNTER → 2018-04-19 11:45 | Day surgery (SDC) | payer MEDICARE ==
[~2018-04-19 11:45] MED LIST: Buffered Lidocaine 0.9% SYRIN* 5 ML/SYR SYRINGE INTRADERM ONE; Dexamethasone TAB* 4 MG ONE; Dexamethasone TAB* 4 MG PO ONE; DiMENhydriNATE IV* 50 MG/ML VIAL IV PUSH PRN; Famotidine IV* 10 MG/ML 2 ML (20 mg) IV ONE; Famotidine IV* 10 MG/ML 2 ML (20 mg) ONE; KETAMINE HCL* 50 MG/ML 10 ML VIAL ONE; Lidocaine 1% INJ* 10 MG/ML 30 ML SDV ONE; Midazolam* 1 MG/ML 5 ML VIAL (5 MG) ONE; Morphine INJ* 2 MG/ML 1 ML SYRINGE (TWO MG - NEW SYRINGE VERSION) IV PRN; Naloxone* 0.4 MG/ML 1 ML VIAL IV PRN; Ondansetron ODT TAB* 4 MG ONE; Ondansetron TAB* 4 MG PO ONE; PROCHLORPERAZINE INJ 5 MG/ML 2 ML VIAL IV PRN; Propofol* 10 MG/ML 20 ML BTL IV PUSH ONE; fentaNYL* 50 MCG/ML 2 ML VIAL (100 MCG VIAL) IV PRN; fentaNYL* 50 MCG/ML 2 ML VIAL (100 MCG VIAL) ONE; oxyCODONE/Acetamin 5/325 MG* TAB PO PRN
[2018-04-19 19:01] VITALS: BP 141/80
--- NOTE | 2018-04-20 07:18 | RAD ---
INDICATION: Power port central venous catheter placement. COMPARISON: Correlation is made with prior chest x-ray study from April 13, 2018. TECHNIQUE: 6.4 seconds of intermittent fluoroscopic guidance were provided and a single spot film was obtained in the operating room. FINDINGS: Note is made of a PowerPort central venous catheter present on the right side. The catheter tip projects in the region of the superior vena cava right atrial junction. IMPRESSION: INTRAOPERATIVE CONTROL FILMS. CPT II Codes: G9500
--- NOTE | 2018-04-20 07:22 | RAD ---
INDICATION: Status post PowerPort central venous catheter placement. COMPARISON: Comparison is made with prior chest x-ray study from April 13, 2018. TECHNIQUE: A portable view of the chest was obtained. FINDINGS: There is a power port central venous catheter present entering on the right side. The catheter tip projects at the superior vena cava right atrial junction. The heart is within normal limits in size. There appears to be a chest tube at the right lung base. There is nodular pleural thickening present laterally within the right lung and a small right basilar infiltrate. There is volume loss in the right lung. No pneumothorax is seen. The left lung appears clear. IMPRESSION: 1. STATUS POST POWERPORT CENTRAL VENOUS CATHETER PLACEMENT, NO EVIDENCE FOR PNEUMOTHORAX. 2. NODULAR PLEURAL THICKENING PRESENT LATERALLY WITHIN THE RIGHT LUNG AND SMALL RIGHT BASILAR INFILTRATE.
--- NOTE | 2018-04-20 13:58 | OP ---
CC: Dr. Fredrick Calero; Dr. Kevin Oliveira; Nikole Thomas MD OPERATIVE REPORT: DATE OF OPERATION: 04/19/18 DATE OF : 38 SURGEON: Dr. Calero. PAPIER MACHE' MOLDER: None. ANESTHESIOLOGIST: Dr. Malin. ANESTHESIA: LMAC. PRE-OP DIAGNOSIS: Right malignant pleural effusion. POST-OP DIAGNOSIS: Right malignant pleural effusion. OPERATIVE PROCEDURE: Placement of right PleurX catheter and placement of right subclavian 8-Malagasy P owerPort. DESCRIPTION OF PROCEDURE: The patient was supine on the operative table. After adequate intravenous sedation, compression stockings, Emerald Hugger warmer, she is not given any antibiotics due to severe allergies to almost every class of antibiotics. A roll was placed on the right scapula. The arm was inclined towards her left and the right lateral chest was prepped with antiseptic and draped in a st erile fashion. In the posterior axillary line, approximately the 8th interspace was entered with the local anesthetic and then a skinny poultry picker needle and miroslava pleural fluid is forthcoming. The Pleur X catheter was tunneled from the anterior axillary line back to the site and placed through the Peel- Away introducer and approximately 500 mL of fluid is readily drained and the incision site is closed with 3-0 Vicryl and a silk suture was used to secure the tube at the exit site and sterile dressing i s placed. She tolerated the procedure well, was awakened and brought to Recovery in good condition. No complications. Drain is PleurX catheter. Sponge and instrument counts are correct. The patient was then placed supine on the operative table and the right neck and chest area were prep ped with antiseptic and draped in a sterile fashion. Local infiltrative anesthesia was administered in the right subclavian region. Approximately 3 cm incision is created and inferior pocket is created . Subclavian venipuncture was carried out without difficulty. Guidewire was passed under fluoroscop ic guidance. Catheter was passed through the Peel-Away introducer, measured and cut at 21 cm, attach ed to the port, which was sutured in the pocket with 2-0 Prolene. Pocket was closed with 3-0 and 5-0 Vicryl, followed by Steri- Strips. The port has good blood return, it was flushed with saline solut ion and heparinized solution. She tolerated the procedure well, was awakened and was brought to [facility] very in good condition. No complications. No drains. No pathologic specimens. Sponge and instrume nt counts correct. Estimated blood loss less than 30 mL. [id number]/[facility] #: [id number]
== END | disposition home or self-care (01) ==
LOC: OR 11:45
PROVIDERS: ATTEND Surgery
DX: C50.911 Malignant neoplasm of unspecified site of right female breast (principal); J91.0 Malignant pleural effusion; I25.10 Atherosclerotic heart disease of native coronary artery without angina pectoris; Z95.5 Presence of coronary angioplasty implant and graft; I25.2 Old myocardial infarction; Z87.891 Personal history of nicotine dependence; J44.9 Chronic obstructive pulmonary disease, unspecified; E78.5 Hyperlipidemia, unspecified; I10 Essential (primary) hypertension
CPT/HCPCS: 71045; 76000; A9270-GY; C1788; J1642; J2250; J2704; J3010; J8540